=== PATIENT | female | born 1930 | race Caucasian/White ===

== ENCOUNTER 2016-05-19 09:54 | Inpatient (IN) | payer MEDICARE, OTHER ==
[~2016-05-19] VITALS: Ht 170.2 cm; Wt 55.3 kg
[2016-05-19 10:40] LABS: BASO % 1 % (0-3); EOS # 0.1 x10^3/uL (0.0-0.7); EOS % 1 % (0-3); HEMATOCRIT 28.1 % (36.0-47.0); HEMOGLOBIN 9.5 g/dL (12.0-15.5); LYMPH # 1.4 x10^3/uL (1.0-4.8); LYMPH % 21 % (24-48); MEAN CORPUSCULAR HEMOGLOBIN 32 pg (25-35); MEAN CORPUSCULAR HGB CONC 34 g/dL (31-37); MEAN CORPUSCULAR VOLUME 94 fL (79-100); MONO # 0.5 x10^3/uL (0.0-1.1); MONO % 7 % (0-9); NEUT # 4.5 x10^3uL (1.8-7.7); NEUT % 70 % (31-73); PLATELET COUNT 326 x10^3/uL (140-400); RED BLOOD COUNT 2.98 x10^6/uL (3.50-5.40); RED CELL DISTRIBUTION WIDTH 13.3 % (11.5-14.5); WHITE BLOOD COUNT 6.4 x10^3/uL (4.0-11.0)
[2016-05-19] MEDS ORDERED: IV NORMAL SALINE 500ML 500 ML IV ONE (10:45)
[2016-05-19 10:47] LABS: ALBUMIN 2.8 g/dL (3.4-5.0); ALBUMIN/GLOBULIN RATIO 0.8 (1.0-1.7); CALCIUM 9.2 mg/dL (8.5-10.1); CREATININE 1.2 mg/dL (0.6-1.0); GFR 42.9; POTASSIUM 3.5 mmol/L (3.5-5.1); TOTAL BILIRUBIN 0.2 mg/dL (0.2-1.0); TOTAL PROTEIN 6.2 g/dL (6.4-8.2)
--- NOTE | 2016-05-19 10:52 | RAD ---
Portable chest, 05/19/2016: History: Hypotension No previous chest radiographs are available at this time for comparison purposes. The patient positioning is kyphotic and rotated. 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 The heart appears to be at the upper limits of normal in size. There are calcified right paratracheal lymph nodes. There is moderate calcific plaquing and tortuosity of the thoracic aorta. The pulmonary vascularity is normal. No pulmonary infiltrates are seen. There is no evidence of pleural fluid. IMPRESSION: 1. Aortic atherosclerosis. 2. No acute cardiopulmonary abnormality is detected.
[2016-05-19 11:00] LABS: BACTERIA,URINE 0 /HPF (0-FEW); BILIRUBIN,URINE NEG (NEG); CLARITY,URINE CLEAR; COLOR,URINE YELLOW; GLUCOSE,URINE NEG (NEG); NITRITE,URINE NEG (NEG); RBC,URINE 0 /HPF (0-2); SQUAMOUS EPITHELIAL CELL,UR OCC /LPF; UROBILINOGEN,URINE 0.2 mg/dL (0.2 mg/dL); WBC,URINE 0 /HPF (0-4)
--- NOTE | 2016-05-19 11:34 | PHYS DOC ---
General Chief Complaint: MEDICAL CLEARANCE Stated Complaint: PSYCH EVAL Time Seen by MD: 10:01 Source: family Problems: History of Present Illness Initial Comments 85-year-old female patient with history of dementia who used to live at assisting living home had pneumonia and flu with hospitalization and discharged to rehabilitation one weeks. Patient had suicidal ideation with talking about having a gun and shooting herself in her abdomen and sent to ER for medical clearance for psych admission. Patient's daughter states she has depression and suicidal ideation for more than one year. Patient's daughter states she has history of hypertension but sometimes her blood pressure dropped to 90s. Patient 's daughter states the cough improved but still she has some cough and generalized weakness. Allergies: Coded Allergies: acetaminophen (Verified Allergy, Unknown, 05/19/16) diclofenac (Verified Allergy, Unknown, 05/19/16) oxycodone (Verified Allergy, Unknown, 05/19/16) Past Medical History Medical History: dementia, diabetes, hypertension Review of Systems Constitutional: see HPI other (review of system obtained from patient's daughter) EENTM: see HPI Respiratory: see HPI Cardiovascular: see HPI Gastrointestinal: see HPI Genitourinary: see HPI Musculoskeletal: see HPI Skin: see HPI Psychiatric/Neurological: see HPI Hematologic/Lymphatic: see HPI Immunological/Allergic: see HPI All Other Systems: Reviewed and Negative Physical Exam General Appearance: mild distress Eyes: bilateral eye EOMI, bilateral eye PERRL, bilateral eye normal inspection Ear, Nose, Throat: hearing grossly normal, normal ENT inspection Neck: non-tender, full range of motion Respiratory: chest non-tender, lungs clear, normal breath sounds Cardiovascular: normal peripheral pulses, regular rate, rhythm, no edema Gastrointestinal: normal bowel sounds, non tender, soft Back: normal inspection Extremities: normal range of motion, non-tender, normal inspection Neurologic/Psychiatric: no motor/sensory deficits, alert, other (depression) Skin: normal color, warm/dry Orders, Labs, Meds EKG at 1011 shows irregular rhythm with no P wave, left axis deviation, poor R wave progress in the anterolateral leads Evaluation of patient in the short 84-year-old female patient presented to ER had started for medical clearance for psychiatric admission regarding suicidal ideation. Patient had blood pressure of 96 at ER with elevation of lactic acid. Chest x-ray and UA was unremarkable. Plan to admit the patient for treatment of hypotension and elevation of lactic acid. Blood culture obtained and IV fluids and antibiotics started. Dr Bro accepted admission at 1124. Departure Departure: Impression: Primary Impression: Hypotension Additional Impressions: Elevated lactic acid level Hyperglycemia Suicidal ideation Anemia Dementia Renal insufficiency Generalized weakness Disposition: 09 ADMITTED INPATIENT (At 1125) Admitting Physician: Teodora Bro FARAHNAZ MD May 19, 2016 11:34
[2016-05-19] MEDS ORDERED: PIPERACILLIN/TAZOBACTAM 3.375 GM VIAL IV ONE (11:38)
[2016-05-19] MEDS ORDERED: IV NORMAL SALINE 50ML 50 ML ONE (11:38)
[2016-05-19] MEDS ORDERED: PIPERACILLIN/TAZOBACTAM 3.375 GM in IV NORMAL SALINE 50ML 50 ML IV ONE (11:50)
--- NOTE | 2016-05-19 13:27 | ACF ---
Admission Criteria Forms GENERAL ADMISSION CRITERIA (Place 'X' for any and all applicable criteria): Admission is indicated for ANY ONE of the following: [ ]I. Hemodynamic instability as indicated by ANY ONE of the following(1)(2) (3)(4)(5): [ ]a) Vital sign abnormality not readily corrected by appropriate treatment within 12 to 24 hours indicated by ANY ONE of the following: [ ]i) Hypotension [ ]ii) Symptomatic Tachycardia unresponsive to treatment (eg , analgesia, fluids, sedation as indicated) [ ]iii) Orthostatic vital sign changes unresponsive to treatment (eg, fluids) [ ]b) Vital sign abnormality that is severe indicated by ANY ONE of the following: [ ]i) Inadequate perfusion indicated by ANY ONE of the following: [ ]1) Lactic acidosis (greater than 2 mmol/L) [ ]2) New abnormal capillary refill (greater than 3 seconds) [ ]3) Other metabolic acidosis (arterial pH less than 7.35) not otherwise explained [ ]4) Reduced urine output [ ]5) Altered mental status [ ]6) Myocardial Ischemia [ ]v) Mean arterial pressure[A] less than 60 mm Hg [ ]vi) Mean arterial pressure[A] less than 70 mm Hg after 30 minutes of appropriate treatment (eg, fluid resuscitation) [ ]vii) IV inotropic or vasopressor medication required to maintain adequate blood pressure or perfusion [ ]viii) Sustained heart rate greater than 120 beats per minute in adult or child 6 years or older[B]] [ ]II. Hypertension requiring inpatient treatment as indicated by ANY ONE of the following(6)(7)(8): [ ]a) SBP greater than 220 mm Hg or DBP greater than 120 mm Hg despite treatment [ ]b) SBP greater than 140 mm Hg or DBP greater than 100 mm Hg with evidence of acute end organ damage as indicated by ANY ONE of the following: [ ]i) Encephalopathy [ ]ii) Acute renal failure as indicated by new onset of ANY ONE of the following(9)(10)(11)(12)(13): [ ]1) A 3-fold rise in serum creatinine from baseline [ ]2) Serum creatinine greater than 4 mg/dL ( 354 micromoles/L) with acute rise greater than 0.5 mg/dL (44.2 micromoles/L) [ ]3) Reduction of more than 75% in estimated glomerular filtration rate from baseline [ ]4) Estimated glomerular filtration rate less than 35 mL/min/1.73m2 (0.59 mL/sec/1.73m2) in child up to 18 years of age [ ]5) Cessation of urine output indicated by ALL of the following: [ ]A. Adequate volume status [ ]B. Inadequate urine output as indicated by ANY ONE of the following: [ ]a. Urine output less than 0.3 mL/kg/hr for 24 hours [ ]b. Anuria (urine output less than 0.1 mL/kg/hr) for 12 hours [ ]iii) Aortic dissection [ ]iv) Myocardial ischemia [ ]v) Left ventricular heart failure [ ]vi) Retinal hemorrhage [ ]vii) Other significant finding [ ]c) Hypertension in child requiring inpatient treatment as indicated by ALL of the following(14)(15)(16): [ ]i) Outpatient treatment not effective, not available, or not appropriate [ ]ii) SBP or DBP greater than 95th percentile for age [ ]iii) Evidence of acute end organ damage as indicated by ANY ONE of the following: [ ]1) Altered mental status [ ]2) Acute renal failure as indicated by new onset of ANY ONE of the following(9)(10)(11)(12)(13): [ ]A. A 3-fold rise in serum creatinine from baseline [ ]B. Serum creatinine greater than 4 mg/dL (354 micromoles/L) with acute rise greater than 0.5 mg/dL (44.2 micromoles/L) [ ]C. Reduction of more than 75% in estimated glomerular filtration rate from baseline [ ]D. Estimated glomerular filtration rate less than 35 mL/min/1.73m2 (0.59 mL/sec/1.73m2)in child up to 18 years of age [ ]E. Cessation of urine output indicated by ALL of the following: [ ]a. Adequate volume status [ ]b. Inadequate urine output as indicated by ANY ONE of the following: [ ]1) Urine output less than 0.3 mL/kg/hr for 24 hours [ ]2) Anuria (urine output less than 0.1 mL/kg/hr) for 12 hours [ ]3) Severe headache [ ]4) Visual disturbance [ ]5) Retinal hemorrhage [ ]6) Other significant finding [ ]III. Acute cardiac or peripheral ischemia as indicated by ANY ONE of the following: [ ]a) Acute coronary syndrome(17)(18) [ ]b) Acute peripheral ischemia (eg, pulseless, cool, mottled, or cyanotic extremity)(19) [ ]IV. Cardiac arrhythmias or findings of immediate concern indicated by ANY ONE of the following(20)(21): [ ]a) Heart rhythms that are inherently dangerous or unstable indicated by ANY ONE of the following(22)(23)(24): [ ]i) Resuscitated ventricular fibrillation or cardiac arrest [ ]ii) Ventricular escape rhythm [ ]iii) Sustained ventricular tachycardia (30 seconds or more of ventricular rhythm at greater than 100 beats per minute) [ ]iv) Nonsustained ventricular tachycardia and ANY ONE of the following: [ ]1) Suspected cardiac ischemia as cause or consequence of ventricular tachycardia [ ]2) In setting of acute myocarditis [ ]b) Unstable cardiac conduction defects indicated by ANY ONE of the following(24)(25)(26): [ ]i) Type II second-degree atrioventricular block [ ]ii) Third-degree atrioventricular block [ ]iii) New-onset left bundle branch block with suspected myocardial ischemia [ ]c) Any heart rhythm and ANY ONE of the following(22)(23)(27)(28)( 29): [ ] i) Continuous long-term ECG monitoring needed (eg, initiation of drug requiring monitoring for more than 24 hours) [ ] ii) Patient has automatic implanted cardioverter defibrillator that is repeatedly firing, malfunctioning, or in need of immediate adjustment of settings beyond the scope of ambulatory or observation care. [ ]d) Heart rhythms of concern due to ANY ONE of the following: [ ]i) Hypotension [ ]ii) Respiratory distress [ ]iii) Association with other significant symptoms (eg, bradycardia with syncope or ongoing dizziness, supraventricular tachycardia with chest pain) (27)(28) (30) [ ] V. Severe heart failure as indicated by ANY ONE of the following ( 31)(32): [ ]a) Respiratory distress [ ]b) Hypotension [ ]c) Anasarca (refractory to outpatient therapy) [ ]d) Cardiac arrhythmias of immediate concern [ ]e) Myocardial ischemia [ ]. Respiratory abnormalities, including ANY ONE of the following(33)(34) (35)(36): [ ]a) Respiratory rate greater than 30 breaths per minute unresponsive to treatment [A] [ ]b) New saturation of arterial oxygen less than 90% [ ]c) New partial pressure of carbon dioxide greater than 44 mm Hg ( 5.9 kPa) [ ]d) Supplemental oxygen or respiratory treatments needed that are new or not performable at other levels of care [ ]e) New-onset cyanosis [ ]f) Inability to protect airway [ ]g) Chronic lung disease with severe deterioration (not responsive to emergency and observation care treatment as appropriate) as indicated by ANY ONE of the following(34)(36 ): [ ]i) SaO2 5% below baseline in patient with chronic hypoxemia [ ]ii) New requirement for supplemental oxygen to keep SaO2 at baseline or acceptable level [ ]iii) Required supplemental oxygen performable only in acute inpatient setting [ ]iv) Severe airflow or ventilation abnormalities [ ]v) Previously mobile patient unable to walk between rooms [ ]vi Inability to eat or sleep due to dyspnea [ ]vii) Rapid rate of exacerbation onset [ ]viii) Altered mental status ]VII. Severe airflow or ventilation abnormalities (not responsive to emergency and observation care treatment as appropriate) as indicated by ANY ONE of the following(33)(34)(35)(37): [ ]a) PCO2 greater than 42 mm Hg (5.6 kPa) and pH less than 7.35 (new ) [ ]b) Documented PCO2 increased more than 5 mm Hg (0.7 kPa) from disease baseline [ ]c) Airflow measurements [B] less than 60% of previous best or predicted (eg, peak expiratory flow rate less than 300 L/minute) despite intensive emergent treatment [C] [ ]d) Required respiratory treatments that are performable only in acute inpatient setting [ ]VIII. Impending or actual respiratory arrest ( Also use Respiratory Failure GRG for severe respiratory disease and long-term mechanical ventilation patients) [ ]IX. Neurologic abnormalities, including ANY ONE of the following: [ ]a) New findings that suggest ANY ONE of the following: [ ]i) [employer]ORTS [employer] infection(38) [ ]ii) Cerebral bleeding, ischemia, or vasospasm(39)(40) [ ]iii) Increased intracranial pressure, hydrocephalus, or cerebral edema(41)(42)(43) [ ]iv) Spinal cord injury(44) [ ]b) Uncontrolled seizures(45) [ ]c) New-onset coma (eg, Jesenia coma scale score less than 9) or unexplained abnormal mental status (eg, Jesenia coma scale score less than 14) [D](41)(46)(47) [ ]X. New-onset severe neurologic findings requiring inpatient care; examples include(42)(48)(49): [ ]a) Papilledema [ ]b) Cerebral edema [ ]c) Mass effect on CT scan [ ]XI. Suspected acute intra-abdominal process with peritoneal signs, abdominal mass, or similar findings (50)(51)(52) [ ]XII. Severe physiologic disorder remaining after emergency or observation level care (as appropriate) as indicated by ANY ONE of the following (53): [ ]a) Significant dehydration [ ]b) Diabetic ketoacidosis [ ]c) Hyperglycemic hyperosmolar state (eg, osmolality greater than 320 mOsm/kg (mmol/kg) [ ]d) Hypoglycemia [ ]e) Other (new) acid-base disorder with pH less than 7.35 or greater than 7.5(54) [ ]f) Thyroid storm (55) [ ]g) Myxedema coma (55) [ ]XIII. Abdominal abnormalities with ANY ONE of the following(56)(57): [ ]a) Absent bowel sounds with complete ileus [ ]b) Signs of intestinal obstruction or peritonitis [E] [ ]c) Nausea and vomiting that cannot be controlled with outpatient or observation care [ ]XIV. Acute renal failure as indicated by new onset of ANY ONE of the following(9)(10)(11)(12)(13): [ ]a) A 3-fold rise in serum creatinine from baseline [ ]b) Serum creatinine greater than 4 mg/dL (354 micromoles/L) with acute rise greater than 0.5 mg/dL (44.2 micromoles/L) [ ]c) Reduction of more than 75% in estimated glomerular filtration rate from baseline [ ]d) Estimated glomerular filtration rate less than 35 mL/min/ 1.73m2 (0.59 mL/sec/1.73m2) in child up to 18 years of age [ ]e) Cessation of urine output indicated by ALL of the following: [ ]i) Adequate volume status [ ]ii) Inadequate urine output as indicated by ANY ONE of the following: [ ]1) Urine output less than 0.3 mL/kg/hr for 24 hours [ ]2) Anuria (urine output less than 0.1 mL/kg/hr) for 12 hours [ ]XV. Significant uremic complications as indicated by ANY ONE of the following(58)(59)(60): [ ]a) Outpatient therapy is ineffective or not feasible for ANY ONE of the following: [ ]i) Severe heart failure [ ]ii) Severehypertension [ ]iii) Pleural effusion [ ]iv) Pericarditis or pericardial effusion [ ]b) Cardiac arrhythmias of immediate concern [ ]c) Intractable nausea or vomiting [ ]d) Recurrent seizures [ ]e) Encephalopathy [ ]f) Bleeding abnormalities (eg, platelet dysfunction) with active (eg, gastrointestinal) bleeding [ ]g) Dialysis indicated before long-term access or ambulatory arrangements can be made [ ]h) Significant metabolic or electrolyte abnormalities (eg, severe acidosis or hyperkalemia) [ ]XVI. High fever or other high-risk infection situation as indicated by ANY ONE of the following(61)(62)(63)(64): [ ]a) Outpatient and observation care antimicrobial treatment unavailable, not effective, or not appropriate [ ]b) Documented bacteremia [ ]c) Temperature greater than 40.5 degrees C (104.9 degrees F) ( oral) [ ]d) Temperature greater than 39.5 degrees C (103.1 degrees F) ( oral) or less than 36 degrees C (96.8 degrees F) (rectal) that does not respond to e treatment and observation care [ ] XVII. Temperature less than 95 degrees F (35 degrees C)(rectal)(65) [ ] XVIII. Severe nutritional abnormalities as indicated by ALL of the following (66)(67): [ ]a) Inability to tolerate or establish sufficient oral or other enteral nutrition in outpatient setting [ ]b) Parenteral nutrition regimen need that must be implemented on inpatient basis [ ] XIX. Severe electrolyte abnormalities indicated by ALL of the following(68) (69)(70): [ ]a) Electrolytes and associated findings are not as expected for patient baseline or acceptable treatment effects. [ ]b) Severe abnormalities indicated by ANY ONE of the following: [ ]i) Sodium less than 130 mEq/L (mmol/L) (new) [ ]ii)Sodium less than 135 mEq/L (mmol/L) with ANY ONE of the following: [ ]1) Uncorrectable (to near normal or chronic baseline) after trial of outpatient and emergency treatment [ ]2) Altered mental status [ ]3) Seizures [ ]4) Severe medical etiology requiring inpatient management (eg, heart failure, hypovolemia) [ ]iii) Sodium greater than 155 mEq/L (mmol/L) [ ]iv) Sodium greater than 150 mEq/L (mmol/L) with ANY ONE of the following: [ ]1) Uncorrectable (to near normal or chronic baseline) with outpatient and emergency treatment [ ]2) Altered mental status [ ]3) Seizures [ ]4) Severe medical etiology (eg, hypovolemia, diabetes insipidus) [ ]v) Potassium less than 2.5 mEq/L (mmol/L) despite outpatient and emergency treatment [ ]vi) Potassium less than 3 mEq/L (mmol/L) with ANY ONE of the following: [ ]1) Weakness [ ]2) Cardiac abnormality (eg, arrhythmia, conduction disturbance) [ ]3) Cardiac ischemia [ ]4) Ileus [ ]5) Ongoing medical cause requiring inpatient management (eg, acute renal wasting or SIADH) [ ]6) Other severe symptoms [ ]vii) Potassium greater than 6.5 mEq/L (mmol/L) [ ]viii) Potassium greater than 5 mEq/L (mmol/L) with ANY ONE of the following: [ ]1) Uncorrectable (to near normal or chronic baseline) with outpatient and emergency treatment [ ]2) Severe ECG findings [F] [ ]3) Acute worsening of renal failure (creatinine greater than 2.5 mg/dL (221 micromoles/L) or significant elevation for age and size) [ ]4) Severe weakness [ ]5) Severe medical etiology (eg, hemolysis, infection, drug overdose) [ ]ix) Calcium less than 7 mg/dL (1.75 mmol/L) despite outpatient and emergency treatment (72) [ ]x) Calcium less than 8 mg/dL (2 mmol/L) with significant symptoms or findings; examples include(72): [ ]1) Altered mental status [ ]2) Muscle spasms [ ]3) Seizures [ ]4) Breathing difficulty [ ]5) Cardiac abnormality (eg, arrhythmia or conduction disturbance) [ ]xi) Calcium greater than 14 mg/dL (3.5 mmol/L)(72) [ ]xii) Calcium greater than 12 mg/dL (3 mmol/L) with ANY ONE of the following(72): [ ]1) Uncorrectable (to near normal or chronic baseline) with outpatient and emergency treatment [ ]2) Significant dehydration or hypovolemia as indicated by ALL of the following(70)(73)(74): [ ]A. Not resolved with initial treatments [ ]B. Clinically significant dehydration as indicated by ANY ONE of the following: [ ]a. Vomiting refractory to outpatient treatment (ie, precluding oral rehydration) [ ]b. Inability to drink [ ]c. Hypernatremia or other electrolyte abnormality unable to be corrected with outpatient and emergency treatment [ ]d. Failure to remain hydrated with outpatient therapy [ ]e. Reduced urine output [ ]f. Hypotension [ ]g. Serious cause for dehydration requiring acute hospitalization (eg, bowel obstruction, increased intracranial pressure, infectious cause) [ ]h. Child with ANY ONE of the following(75): [ ]1) Severe abdominal tenderness [ ]2) Adequate care not available at home [ ]3) Severe dehydration ( greater than 9% loss of body weight) [ ]4) Significant symptoms or findings; examples include: [ ]A. Altered mental status [ ]B. Cardiac abnormality (eg, arrhythmia, conduction disturbance) [ ]C. Malignant etiology requiring inpatient treatment [ ]xiii) Phosphorus less than 1 mg/dL (0.32 mmol/L) [ ]xiv) Phosphorus less than 1.5 mg/dL (0.48 mmol/L) with ANY ONE of the following: [ ]1) Patient unresponsive to outpatient and emergency treatment [ ]2) Significant symptoms or findings; examples include: [ ]A. Weakness [ ]B. Altered mental status [ ]C. Breathing difficulty [ ]D. Seizures [ ]E. Rhabdomyolysis [ ]xv) Phosphorus greater than 10 mg/dL (3.2 mmol/L) [ ]xvi) Phosphorus greater than 4.5 mg/dL (1.45 mmol/L) (new) with ANY ONE of the following: [ ]1) Severe medical etiology (eg, crush injury, acute renal failure) [ ]2) Associated hypocalcemia with significant findings; examples include: [ ]A. Neurologic symptoms [ ]B. Altered mental status [ ]C. Muscle spasms [ ]D. Seizures [ ]E. Breathing difficulty [ ]F. Cardiac abnormality (eg, arrhythmia, conduction disturbance) [ ]xvii) Magnesium less than 1 mg/dL (0.41 mmol/L) [ ]xviii) Magnesium less than 1.5 mg/dL (0.62 mmol/L) with ANY ONE of the following: [ ]1) Patient unresponsive to outpatient and emergency treatment [ ]2) Associated hypocalcemia with significant findings; examples include: [ ]A. Altered mental status [ ]B. Muscle spasms [ ]C. Seizures [ ]D. Breathing difficulty [ ]E. Cardiac abnormality (eg, arrhythmia , conduction disturbance) [ ]3) Associated hypokalemia (potassium less than 3 mEq/L (mmol/L)) with risk of arrhythmia [ ]xix) Magnesium greater than 4 mEq/L (2 mmol/L) [ ]xx) Magnesium greater than 2.5 mEq/L (1.25 mmol/L) with significant symptoms or findings; examples include: [ ]1) Weakness [ ]2) Altered mental status [ ]3) Cardiac abnormality (eg, arrhythmia, conduction disturbance) [ ]4) Breathing difficulty [ ]5) Severe medical etiology (eg, renal failure, hypovolemia) [ ]xxi) Uric acid greater than 20 mg/dL (1190 micromoles/L)(76) [ ]xxii) Uric acid greater than 8 mg/dL (476 micromoles/L) with significant symptoms or findings of tumor lysis syndrome; examples include(76): [ ]1) Creatinine greater than 1.5 times upper limit of normal [ ]2) Cardiac abnormality (eg, arrhythmia, conduction disturbance) [ ]3) Seizure [ ]XX. Acute blood loss causing significant abnormality as indicated by ANY ONE of the following(77)(78): [ ]a) Hemoglobin less than 10 g/dL (100 g/L) (not baseline) [ ]b) Hematocrit less than 30% (0.30) (not baseline) [ ]c) Repeat hematocrit decreased more than 2% (0.02) [ ]d) Uncontrolled bleeding [ ]XXI. Severe anemia indicated by ANY ONE of the following(78)(79): [ ]a) Altered mental status [ ]b) Chest pain [ ]c) Exertional dyspnea [ ]d) Syncope [ ]e) Other findings suggesting inadequate perfusion [ ]f) Treatment with transfusion or volume replacement is ineffective at resolving ANY ONE of the following [G]: [ ]i) Tachycardia for age [ ]ii) Orthostatic vital sign changes as indicated by ANY ONE of the following(80): [ ]1) Fall in SBP of 20 mm Hg or more 1 to 3 minutes after patient sits or stands from recumbent position [ ]2) Fall in DBP of 10 mm Hg or more 1 to 3 minutes after patient sits or stands from recumbent position [ ]XXII. High-risk low platelet count as indicated by ANY ONE of the following( 81)(82): [ ]a) Severe or life-threatening bleeding (eg, intracranial, major gastrointestinal, or extensive mucosal bleeding), with any reduced platelet count [ ]b) Platelet count less than 20,000/mm3 (20 x109/L) with any active bleeding [ ]c) Platelet count less than 10,000/mm3 (10 x109/L) with minor purpura or petechiae [ ]d) Platelet count less than 5000/mm3 (5 x109/L) [ ]e) Low platelet count with hemolytic anemia [ ]XXIII. Disseminated intravascular coagulation(77)(83) [ ]XXIV. Severe adverse drug or systemic toxin reaction requiring inpatient treatment; examples include(84)(85): [ ]a) Serotonin syndrome(86) [ ]b) Neuroleptic malignant syndrome(86) [ ]c) Cholinergic syndrome with severe symptoms (eg, bronchorrhea, weakness, mental status changes, seizures) [ ]d) Sympathetic syndrome with severe symptoms (eg, seizures, mental status changes, cardiac dysrhythmias) [ ]e) Anticholinergic syndrome [ ]XXV. Severe pain requiring acute inpatient management as indicated by ALL of the following (87)(88)(89): [ ]a) Continuous or frequent (eg, every 2 to 4 hours) parenteral analgesics required [H] [ ]b) Rapid improvement expected from treatment or acute intervention (eg, surgery, anesthesia procedure) [ ]XXVI.Severe behavioral health issues judged unmanageable at a lower level of care (eg, residential) in a patient who is ANY ONE of the following(91) [ ]a) Acutely suicidal [ ]b) A danger to self (eg, self-mutilating or suicidal behavior) [ ]c) A danger to others (eg, assaultive or homicidal behavior) [ ]d) Incapacitated because of grave disability (eg, inability to provide for self at lower level of care) (92) [X ]XXVII. Inpatient monitoring needed; examples include(1)(3)(87)(93)(94)(95)( 96): [X ]a) Vital signs, neurologic signs, or vascular checks more frequently than every 4 hours [ ]b) Cardiac or respiratory monitoring beyond the scope (eg, over 24 hours) of observation care [ ]c) Pulmonary artery catheter monitoring [ ]d) Suspected compartment syndrome(97) (98) [ ]e) Cerebral bleeding, hydrocephalus, or vasospasm monitoring [ ]f) Increased intracranial pressure or cerebral edema monitoring [ ]g) monitoring [ ]XXVIII. Treatment requiring inpatient care; examples include: [ ]a) IV fluid to replace significant ongoing losses (greater than 3 L/m2 per day)(53) [ ]b) High concentration oxygen (greater than 40%)(33)(99)(100) [ ]c) Frequent respiratory therapy (more frequently than every 4 hours) to maintain airflow rates greater than 60% of baseline(33)(99)(100) [ ]d) Epidural analgesia(87) [ ]e) IV anticoagulation, vasoactive, or antiarrhythmic medication(19 )(23) [ ]f) Acute thrombolytics (generally require 24 hours of observation )(101)(102) [ ]XXIX. Emergency procedures needed; examples include: [ ]a) Emergency inpatient surgery [ ]b) Temporary pacemaker placement(103) [ ]c) Chest tube placement with active evacuation (eg, suction, drainage)(104) [ ]d) Emergent cardioversion(105) [ ]e) Emergent cardiac or vascular procedures (eg, cardiac catheterization, angioplasty) (17)(18) [ ]f) Emergent dialysis access placement and institution(10)(106) [ ]g) Emergent pericardiocentesis(107) [ ]h) Emergent plasmapheresis or leukapheresis(83) [ ]i) Emergent tracheostomy The original [employer] content created by [employer] has been revised. The portions of the content which have been revised are identified through the use of italic text or in bold, and [facility] has neither reviewed nor approved the modified material. All other unmodified content is copyright [employer]. Please see references footnoted in the original [employer] edition 2016 Admission Criteria Met?: Yes CHRIS BERRY May 19, 2016 13:27
[2016-05-19 14:20] VITALS: BP 114/65
[2016-05-19 14:48] VITALS: BP 114/65
--- NOTE | 2016-05-19 15:17 | EKG ---
[address] [address] Test Date: 2016-05-19 Test Time: 10:11:26 Pat Name: MELINDA PERRY Department: Room: 125 A Gender: F Area Supervisor: : [id number] Requested By: CHRISTIANO RUVALCABA Order Number: [id number] Reading MD: Measurements Intervals [place] Rate: 62 P: SD: QRS: -6 QRSD: 104 T: 8 QT: 420 QTc: 429 Interpretive Statements IRREGULAR RHYTHM, NO P-WAVE FOUND LEFTWARD AXIS QRS(T) CONTOUR ABNORMALITY CONSIDER ANTEROLATERAL MYOCARDIAL DAMAGE POSSIBLY ABNORMAL ECG RI6.01 Unconfirmed report No previous ECG available for comparison
[2016-05-19] MEDS ORDERED: ACET325T9 PO (15:52)
[2016-05-19] MEDS ORDERED: ALPR0.254 PO (15:52)
[2016-05-19] MEDS ORDERED: ASPI81TA2 PO (15:53)
[2016-05-19] MEDS ORDERED: AMLO10TA2 PO (15:53)
[2016-05-19] MEDS ORDERED: ASCO500T3 PO (15:53)
[2016-05-19] MEDS ORDERED: ATOR20TA58 PO (15:54)
[2016-05-19] MEDS ORDERED: BENZ200C39 PO (15:54)
[2016-05-19] MEDS ORDERED: CARV6.252 PO (15:55)
[2016-05-19] MEDS ORDERED: CRAN425C PO (15:56)
[2016-05-19] MEDS ORDERED: CHOL2000 PO (15:56)
[2016-05-19] MEDS ORDERED: DONE10TA7 PO (15:56)
[2016-05-19] MEDS ORDERED: INSU100I27 SQ (15:57)
[2016-05-19] MEDS ORDERED: IBUP200T5 PO (15:57)
[2016-05-19] MEDS ORDERED: LISI10TA2 PO (15:58)
[2016-05-19] MEDS ORDERED: LEVE500T6 PO (15:58)
[2016-05-19] MEDS ORDERED: LEVO125T5 PO (15:58)
[2016-05-19] MEDS ORDERED: LORA10TA3 PO (15:59)
[2016-05-19] MEDS ORDERED: MEMA10TA PO (15:59)
[2016-05-19] MEDS ORDERED: LOPE2TAB27 PO (15:59)
[2016-05-19] MEDS ORDERED: METF500T4 PO (16:00)
[2016-05-19] MEDS ORDERED: MIRT30TA3 PO (16:00)
[2016-05-19] MEDS ORDERED: CALC200T3 PO (16:01)
[2016-05-19] MEDS ORDERED: QUET25TA5 PO (16:01)
[2016-05-19] MEDS: CARVEDILOL 6.25 MG TABLET PO SCH (18:00)
[2016-05-19] MEDS ORDERED: IBUPROFEN 200 MG TABLET PO PRN ×2 (18:00→18:15)
[2016-05-19] MEDS ORDERED: ACETAMINOPHEN 325 MG TABLET PO PRN (18:00)
[2016-05-19] MEDS ORDERED: ALPRAZOLAM 0.25 MG TABLET PO PRN (18:00)
[2016-05-19] MEDS ORDERED: LOPERAMIDE 2 MG CAPSULE PO PRN (18:15)
--- NOTE | 2016-05-19 18:42 | HP ---
ADMIT DATE: 05/19/2016 HISTORY OF PRESENT ILLNESS: The patient is an 85-year-old female patient who apparently ill with history of dementia, used to live at [facility] and has had pneumonia and flu was hospitalized at [facility] as she was extremely debilitated. She was discharged to rehabilitation center for 1 week. The patient has suicidal ideation with talking about having a gun and shooting herself in her abdomen and was sent to the Emergency Room of [facility] for medical clearance for psych admission. The patient's daughter states that she has depression and suicidal ideation for more than 1 year now. The patient's daughter stated that she has history of hypertension and sometimes her blood pressure drops to 90s. Her daughter stated that she generally has improved from her pneumonia and influenza, but she continued to have generalized weakness. In any case, she was evaluated in the Emergency Room, was found to have lactic acidosis and a decision was made to admit her to [facility] to rehydrate her and to repeat her lab work before she can go upstairs to the [facility]. The patient herself is extremely demented and does not give any useful information; however, she was very pleasant and cooperative. PAST MEDICAL HISTORY: Significant for dementia, diabetes, and hypertension. She has also hyperlipidemia, vitamin D deficiency, seizure disorder, and hypothyroidism. PAST SURGICAL HISTORY: Significant for left total knee arthroplasty, back surgery. She apparently has also stents in her heart and permanent pacemaker placed. FAMILY HISTORY: Unremarkable. SOCIAL HISTORY: She is a resident at [facility]. She apparently does not smoke, drink alcohol, or use any recreational drugs. REVIEW OF SYSTEMS: As per history of present illness. PHYSICAL EXAMINATION: GENERAL: On examining her, she looked well and was clearly in no apparent respiratory distress, slightly pale, but no jaundice, cyanosis, or thyromegaly. No jugular venous distension. No limb edema. VITAL SIGNS: Her heart rate was 64, blood pressure 114/65, temperature was 98.4, respiratory rate 20, and oxygen saturation was 99% on room air. HEAD, EYES, EARS, NOSE, AND THROAT: Showed normocephalic, atraumatic. She has bilateral conjunctivitis more so on the right than left. NECK: Supple. HEART: Showed normal first and second heart sounds with no gallop, rub or murmur. CHEST: Clear to auscultation. No crepitation or rhonchi. ABDOMEN: Distended, soft, nontender. No guarding or rigidity. No organomegaly. Hernial orifices intact. Bowel sounds normal. NEUROLOGIC: She is demented without any obvious lateralizing sign. All her cranial nerves intact. EXTREMITIES: She moves extremities without difficulty. She ambulates with a walker. LABORATORY DATA: Her lab work on admission showed a white cell count of 6400, hemoglobin 9.5, hematocrit 28, MCV 94 and platelet count of 326,000 with normal manual differential. Her chemistry showed a serum sodium 142, potassium 3.5, chloride 105, bicarbonate 31, anion gap of 6, BUN 11, creatinine 1.2, estimated GFR was 43 mL per minute. Her glucose was 237, lactic acid was 2.2, calcium was 9.2. Total bilirubin, AST, ALT were normal. Alkaline phosphatase slightly elevated. Total protein was 6.2 and albumin was 2.8. Urinalysis was unremarkable. Her chest x-ray also showed no acute cardiopulmonary abnormality detected. IMPRESSION: In summary, this is an 85-year-old female patient who was admitted with hypertension, elevated lactic acid level, hyperglycemia, suicidal ideation, anemia, renal insufficiency, and generalized weakness. PLAN: To continue with all her medication. Continue with IV fluid and repeat her labs tomorrow as she remained hemodynamically stable, we will discharge her upstairs if she qualifies to go to inpatient psychiatric rehabilitation. CHRISTIANO RUVALCABA MD DR: NARESH/leonela JOB#: [id number] / [id number]
[2016-05-19 19:34] VITALS: BP 100/53
[2016-05-19 19:45] VITALS: BP 100/53
[2016-05-19] MEDS ORDERED: BENZONATATE 100 MG CAPSULE. PO PRN (21:00)
[2016-05-19] MEDS ORDERED: QUEtiapine 25 MG TABLET. PO SCH (21:00)
[2016-05-19] MEDS ORDERED: NON FORMULARY ITEM (Cranberry Extract (Cranberry) 425 MG) PO SCH (21:00)
[2016-05-19] MEDS ORDERED: MIRTAZAPINE 30 MG TABLET PO SCH (21:00)
[2016-05-19] MEDS ORDERED: ATORVASTATIN CALCIUM 20 MG TABLET PO SCH (21:00)
[2016-05-19] MEDS ORDERED: INSULIN DETEMIR 300 UNITS/3 ML INSULN.PEN. SQ SCH (21:00)
--- NOTE | 2016-05-19 21:02 | PDOC ---
Exam Miguelito Demential Exam: Miguelito Note: Please also refer to the separate dictated note~for this date of service dictated separately.~Patient seen individually. Discussed the patient with Nursing staff reviewed the chart.~Reviewed interim history and current functioning. Reviewed vital signs,~Labs/ Radiology~and current medications noted below. Continue current treatment with the changes noted in the dictated addendum note Assessment: Vital Signs: Vital Signs Date Time Temp Pulse Resp B/P Pulse Ox O2 Delivery O2 Flow Rate FiO2 05/19/16 19:45 98.3 73 16 100/53 95 05/19/16 19:34 Room Air Labs: Laboratory Tests Test 05/19/16 10:25 05/19/16 10:35 05/19/16 14:28 05/19/16 16:07 White Blood Count 6.4x10^3/uL (4.0-11.0) Red Blood Count 2.98x10^6/uL (3.50-5.40) L Hemoglobin 9.5g/dL (12.0-15.5) L Hematocrit 28.1% (36.0-47.0) L Mean Corpuscular Volume 94fL (79-100) Mean Corpuscular Hemoglobin 32pg (25-35) Mean Corpuscular Hemoglobin Concent 34g/dL (31-37) Red Cell Distribution Width 13.3% (11.5-14.5) Platelet Count 326x10^3/uL (140-400) Neutrophils (%) (Auto) 70% (31-73) Lymphocytes (%) (Auto) 21% (24-48) L Monocytes (%) (Auto) 7% (0-9) Eosinophils (%) (Auto) 1% (0-3) Basophils (%) (Auto) 1% (0-3) Neutrophils # (Auto) 4.5x10^3uL (1.8-7.7) Lymphocytes # (Auto) 1.4x10^3/uL (1.0-4.8) Monocytes # (Auto) 0.5x10^3/uL (0.0-1.1) Eosinophils # (Auto) 0.1x10^3/uL (0.0-0.7) Basophils # (Auto) 0.0x10^3/uL (0.0-0.2) Sodium Level 142mmol/L (136-145) Potassium Level 3.5mmol/L (3.5-5.1) Chloride Level 105mmol/L (98-107) Carbon Dioxide Level 31mmol/L (21-32) Anion Gap 6 (6-14) Blood Urea Nitrogen 11mg/dL (7-20) Creatinine 1.2mg/dL (0.6-1.0) H Estimated GFR (Cockcroft-Gault) 42.9 BUN/Creatinine Ratio 9 (6-20) Glucose Level 237mg/dL (70-99) H Lactic Acid Level 2.2mmol/L (0.4-2.0) H 2.0mmol/L (0.4-2.0) Calcium Level 9.2mg/dL (8.5-10.1) Total Bilirubin 0.2mg/dL (0.2-1.0) Aspartate Amino Transferase (AST) 18U/L (15-37) Alanine Aminotransferase (ALT) 17U/L (14-59) Alkaline Phosphatase 127U/L (46-116) H Total Protein 6.2g/dL (6.4-8.2) L Albumin 2.8g/dL (3.4-5.0) L Albumin/Globulin Ratio 0.8 (1.0-1.7) L Urine Collection Type U cath Urine Color Yellow Urine Clarity Clear Urine pH 5.0 Urine Specific [place] 1.015 Urine Protein Neg (NEG-TRACE) Urine Glucose (UA) Negmg/dL (NEG) Urine Ketones (Stick) Negmg/dL (NEG) Urine Blood Neg (NEG) Urine Nitrite Neg (NEG) Urine Bilirubin Neg (NEG) Urine Urobilinogen Dipstick 0.2mg/dL (0.2 mg/dL) Urine Leukocyte Esterase Neg (NEG) Urine RBC 0/HPF (0-2) Urine WBC 0/HPF (0-4) Urine Squamous Epithelial Cells Occ/LPF Urine Bacteria 0/HPF (0-FEW) Urine Mucus Slight/LPF Glucose (Fingerstick) 133mg/dL (70-99) H Test 05/19/16 20:12 Glucose (Fingerstick) 133mg/dL (70-99) H Current Medications: Meds: Current Medications Sodium Chloride 500 ml @ 0 mls/hr 1X ONCE IV Last administered on 05/19/16t 10 :45; Start 05/19/16 at 10:45; Stop 05/19/16 at 10:46; Status DC Piperacillin Sod/ Tazobactam Sod/ Sodium Chloride (Zosyn/Iv Sodium Chloride 0.9 % 50ml) 50 ml @ 100 mls/hr 1X ONCE IV Last administered on 05/19/16t 11:44; Start 05/19/16 at 11:50; Stop 05/19/16 at 12:19; Status DC Piperacillin Sod/ Tazobactam Sod 3.375 gm 3.375 gm STK-MED ONCE IV ; Start 05/19 at 11:38; Stop 05/19/16 at 11:39; Status DC Sodium Chloride (Iv Sodium Chloride 0.9% 50ml) 50 ml @ As Directed STK-MED ONCE .ROUTE ; Start 05/19/16 at 11:38; Stop 05/19/16 at 11:39; Status DC Acetaminophen (Tylenol) 650 mg PRN Q4HRS PRN PO PAIN; Start 05/19/16 at 18:00 Alprazolam (Xanax) 0.25 mg PRN Q6HRS PRN PO ANXIETY / AGITATION; Start at 18:00 Amlodipine Besylate (Norvasc) 10 mg DAILY PO ; Start 05/20/16 at 09:00 Ascorbic Acid (Vitamin C) 500 mg BID PO ; Start 05/19/16 at 21:00 Aspirin (Children'S Aspirin) 81 mg DAILY PO ; Start 05/20/16 at 09:00 Atorvastatin Calcium (Lipitor) 20 mg QHS PO ; Start 05/19/16 at 21:00 Calcium Carbonate/ Glycine (Tums) 500 mg DAILY PO ; Start 05/20/16 at 09:00 Carvedilol (Coreg) 6.25 mg BIDWMEALS PO ; Start 05/19/16 at 18:00 Donepezil HCl (Aricept) 10 mg DAILY PO ; Start 05/20/16 at 09:00 Ibuprofen (Motrin) 200 mg PRN Q4HRS PRN PO PAIN; Start 05/19/16 at 18:00 Insulin Detemir (Levemir) 10 units QHS SQ ; Start 05/19/16 at 21:00 Levetiracetam (Keppra) 500 mg BID PO ; Start 05/19/16 at 21:00 Levothyroxine Sodium (Synthroid) 125 mcg DAILYAC PO ; Start 05/20/16 at 07:30 Lisinopril (Prinivil) 10 mg DAILY PO ; Start 05/20/16 at 09:00 Memantine (Namenda) 10 mg DAILY PO ; Start 05/20/16 at 09:00 Metformin HCl (Glucophage) 500 mg BIDWMEALS PO ; Start 05/20/16 at 08:00 Mirtazapine (Remeron) 30 mg QHS PO ; Start 05/19/16 at 21:00 Quetiapine Fumarate (SEROquel) 12.5 mg QHS PO ; Start 05/19/16 at 21:00 Benzonatate (Tessalon Perle) 200 mg PRN Q8HRS PRN PO COUGH; Start 05/19/16 at 21:00 Vitamin D (Vitamin D3) 2,000 unit DAILY PO ; Start 05/20/16 at 09:00 Non-Formulary Medication 425 mg BID PO ; Start 05/19/16 at 21:00; Status UNV Loperamide HCl (Imodium) 2 mg PRN QID PRN PO DIARRHEA; Start 05/19/16 at 18:15 Cetirizine HCl (Zyrtec) 10 mg DAILY PO ; Start 05/20/16 at 09:00 Ibuprofen (Motrin) 400 mg PRN Q4HRS PRN PO PAIN; Start 05/19/16 at 18:15 Active Scripts Active Reported Tums (Calcium Carbonate) 200 Mg Tab.chew 200 Mg PO DAILY Seroquel (Quetiapine Fumarate) 25 Mg Tablet 12.5 Mg PO QHS Mirtazapine 30 Mg Tablet 1 Tab PO QHS Metformin Hcl 500 Mg Tablet 500 Mg PO BIDWMEALS Namenda (Memantine Hcl) 10 Mg Tablet 10 Mg PO DAILY Loratadine 10 Mg Tablet 10 Mg PO DAILY Loperamide (Loperamide Hcl) 2 Mg Tablet 2 Mg PO PRN QID PRN Lisinopril 10 Mg Tablet 10 Mg PO DAILY Levothyroxine Sodium 125 Mcg Tablet 125 Mcg PO DAILYAC Levetiracetam 500 Mg Tablet 500 Mg PO BID Levemir Flextouch (Insulin Detemir) 100 Unit/1 Ml Insuln.pen 10 Unit SQ QHS Ibuprofen 200 Mg Tablet 200-400 Mg PO PRN Q4HRS PRN Donepezil Hcl 10 Mg Tablet 10 Mg PO DAILY Cranberry (Cranberry Extract) 425 Mg Capsule 425 Mg PO BID Vitamin D (Cholecalciferol (Vitamin D3)) 2,000 Unit Capsule 2,000 Unit PO DAILY Carvedilol 6.25 Mg Tablet 1 Tab PO BID Benzonatate 200 Mg Capsule 200 Mg PO PRN Q8HRS PRN Atorvastatin Calcium 20 Mg Tablet 20 Mg PO QHS Aspirin 81 Mg Tab.chew 81 Mg PO DAILY Ascorbic Acid 500 Mg Tablet 500 Mg PO BID Amlodipine Besylate 10 Mg Tablet 10 Mg PO DAILY Alprazolam 0.25 Mg Tablet 0.25 Mg PO PRN Q6HRS PRN Tylenol (Acetaminophen) 325 Mg Tablet 650 Mg PO PRN Q4HRS PRN Diagnosis: Problems: (1) Anemia (2) Dementia (3) Hyperglycemia (4) Hypotension (5) Suicidal ideation (6) Elevated lactic acid level (7) Generalized weakness (8) Renal insufficiency VÍCTOR DECKER MD May 19, 2016 21:02
[2016-05-19] MEDS: ASCORBIC ACID 500 MG TABLET PO SCH (21:05)
[2016-05-19] MEDS: LEVETIRACETAM 500 MG TABLET PO SCH (21:05)
[2016-05-19 23:06] VITALS: BP 131/75
[2016-05-20 05:16] VITALS: BP 118/69
[2016-05-20 06:28] LABS: BASO # 0.1 x10^3/uL (0.0-0.2); BASO % 1 % (0-3); EOS % 1 % (0-3); HEMATOCRIT 28.2 % (36.0-47.0); HEMOGLOBIN 9.6 g/dL (12.0-15.5); LYMPH # 1.2 x10^3/uL (1.0-4.8); LYMPH % 19 % (24-48); MEAN CORPUSCULAR HEMOGLOBIN 32 pg (25-35); MEAN CORPUSCULAR HGB CONC 34 g/dL (31-37); MEAN CORPUSCULAR VOLUME 95 fL (79-100); MONO # 0.5 x10^3/uL (0.0-1.1); MONO % 8 % (0-9); NEUT # 4.5 x10^3uL (1.8-7.7); NEUT % 72 % (31-73); PLATELET COUNT 320 x10^3/uL (140-400); RED BLOOD COUNT 2.96 x10^6/uL (3.50-5.40); RED CELL DISTRIBUTION WIDTH 13.7 % (11.5-14.5); WHITE BLOOD COUNT 6.3 x10^3/uL (4.0-11.0)
[2016-05-20 06:41] LABS: ALBUMIN 2.7 g/dL (3.4-5.0); ALBUMIN/GLOBULIN RATIO 0.9 (1.0-1.7); CREATININE 0.9 mg/dL (0.6-1.0); GFR 59.8; POTASSIUM 3.1 mmol/L (3.5-5.1); TOTAL BILIRUBIN 0.2 mg/dL (0.2-1.0); TOTAL PROTEIN 5.8 g/dL (6.4-8.2)
[2016-05-20] MEDS ORDERED: LEVOTHYROXINE 125 MCG TABLET PO SCH (07:30)
[2016-05-20] MEDS ORDERED: METFORMIN 500 MG TABLET. PO SCH (08:00)
[2016-05-20 08:42] VITALS: BP 152/79
[2016-05-20] MEDS ORDERED: MEMANTINE 10 MG TABLET. PO SCH (09:00)
[2016-05-20] MEDS ORDERED: ASPIRIN 81 MG TAB.CHEW PO SCH (09:00)
[2016-05-20] MEDS ORDERED: LISINOPRIL 10 MG TABLET PO SCH (09:00)
[2016-05-20] MEDS ORDERED: DONEPEZIL HCL 10 MG TABLET PO SCH (09:00)
[2016-05-20] MEDS ORDERED: CETIRIZINE HCL 10 MG TABLET PO SCH (09:00)
[2016-05-20] MEDS ORDERED: CHOLECALCIFEROL (VITAMIN D3) 1,000 UNIT TABLET PO SCH (09:00)
[2016-05-20] MEDS ORDERED: AMLODIPINE BESYLATE 10 MG TABLET PO SCH (09:00)
[2016-05-20] MEDS ORDERED: CALCIUM CARBONATE 500 MG TAB.CHEW PO SCH (09:00)
[2016-05-20] MEDS: LEVETIRACETAM 500 MG TABLET PO SCH (09:29)
[2016-05-20] MEDS: CARVEDILOL 6.25 MG TABLET PO SCH (09:29)
[2016-05-20] MEDS: ASCORBIC ACID 500 MG TABLET PO SCH (09:29)
[2016-05-20 14:37] VITALS: BP 107/54
[2016-05-20 16:00] VITALS: BP 122/68
--- NOTE | 2016-05-20 20:27 | DS ---
DATE OF DISCHARGE: 05/20/2016 HOSPITAL COURSE: The patient is an 85-year-old female patient who lives in an assisted living facility who apparently has had pneumonia and flu was hospitalized at [facility]. She was extremely debilitated. She was discharged to rehab center for 1 week. The patient has suicidal ideation and was talking about having a gun and shooting herself in her abdomen. She was sent to the Emergency Room at [facility] for medical clearance for psych admission. The patient's daughter states that she has depression and suicidal ideation for more than a year now. She was evaluated in the Emergency Room, initially was hypertensive and has lactic acidosis. A decision was made to admit her to [address] [place] [address] for medical stabilization. She did very well. PHYSICAL EXAMINATION: GENERAL: Today, she was resting slightly propped up in bed, in no apparent respiratory distress. She was awake, alert, but obviously confused. She was pale, cachectic, but no jaundice, cyanosis or thyromegaly. No jugular venous distention. No limb edema. VITAL SIGNS: Her heart rate was 74, blood pressure was 107/54, temperature was 98.6, respiratory rate 20, and oxygen saturation was 95%. HEAD, EYES, EARS, NOSE AND THROAT: Showed normocephalic, atraumatic. NECK: Supple. HEART: Showed normal first and second heart sounds with no gallop, rub or murmur. CHEST: Clear to auscultation. No crepitation or rhonchi. ABDOMEN: Distended, soft, nontender. NEUROLOGIC: She was demented without any obvious lateralizing signs. The patient is able to ambulate with a walker. Her intake over the last 24 hours was incompletely recorded. LABORATORY DATA: Her lab work this morning showed a white cell count of 6300, hemoglobin 9.6, hematocrit 28.2, MCV 95 and platelet count 320,000. Her serum sodium was 145, potassium 3.1, chloride 110, bicarbonate 30, anion gap of 5, BUN 13, creatinine 0.9. Estimated GFR was 60 mL per minute. Her glucose was 62, calcium was 9. Total bilirubin, AST, ALT, alkaline phosphatase were normal. Her total protein was 5.8, albumin was 2.7. DISCHARGE MEDICATIONS: The patient was [facility] for [facility] stabilization to continue on acetaminophen 650 mg every 4 hours, alprazolam 0.25 mg every 6 hours p.r.n. for anxiety, amlodipine besylate 10 mg daily, ascorbic acid 500 mg p.o. b.i.d., aspirin 81 mg once a day, atorvastatin calcium 20 mg once a day, benzonatate 200 mg every 8 hours, calcium carbonate for Tums once a day, carvedilol 6.25 mg twice a day, cholecalciferol, vitamin D3 2000 units p.o. daily, cranberry extract 425 mg p.o. b.i.d., donepezil for Aricept 10 mg once a day, ibuprofen 200 mg to 400 mg every 4 hours, detemir insulin 10 units at bedtime, levetiracetam 500 mg p.o. b.i.d., levothyroxine sodium 125 mcg once a day, lisinopril 10 mg once a day, loperamide 2 mg q.i.d., loratadine 10 mg once a day, Namenda 10 mg daily, metformin 500 mg p.o. b.i.d., mirtazapine 15 mg at bedtime, and quetiapine fumarate for Seroquel 12.5 mg at bedtime. FINAL DISCHARGE DIAGNOSES: Hypertension, lactic acidosis, resolved, anemia, chronic renal failure, seizure disorder, hypothyroidism, hyperlipidemia, vitamin D deficiency, and dementia. CHRISTIANO RUVALCABA MD DR: NARESH/leonela JOB#: [id number] / [id number]
== END 2016-05-20 16:29 | disposition short-term general hospital (02) | DRG 682 ==
LOC: EEVIPCON 09:54 → ER 09:54 → 1 SOUTH 11:38
PROVIDERS: ADMIT Internal Medicine; ATTEND Internal Medicine
DX: N17.0 Acute kidney failure with tubular necrosis (principal); E43 Unspecified severe protein-calorie malnutrition; E87.2 Acidosis; R45.851 Suicidal ideations; I12.9 Hypertensive chronic kidney disease with stage 1 through stage 4 chronic kidney disease, or unspecified chronic kidney disease; G40.909 Epilepsy, unspecified, not intractable, without status epilepticus; E03.9 Hypothyroidism, unspecified; E11.22 Type 2 diabetes mellitus with diabetic chronic kidney disease; D63.1 Anemia in chronic kidney disease; E11.65 Type 2 diabetes mellitus with hyperglycemia; E78.5 Hyperlipidemia, unspecified; F03.90 Unspecified dementia, unspecified severity, without behavioral disturbance, psychotic disturbance, mood disturbance, and anxiety; N18.9 Chronic kidney disease, unspecified; Z96.652 Presence of left artificial knee joint; E55.9 Vitamin D deficiency, unspecified; I95.9 Hypotension, unspecified; Z88.5 Allergy status to narcotic agent; Z88.8 Allergy status to other drugs, medicaments and biological substances
CPT/HCPCS: 36415; 71010; 80053; 81001; 82947; 83605; 85027; 87040; 87641; 93005; 96374; J1815; J2543; J7040; 99285-25

== ENCOUNTER 2018-05-25 11:13 | Inpatient (IN) | payer MEDICARE, OTHER ==
[~2018-05-25] VITALS: Ht 167.6 cm; Wt 59.0 kg
[~2018-05-25 11:13] MED LIST: ACET325T9 PO; ALPR0.254 PO; AMLO10TA8 PO; ASCO500T3 PO; ASPI-630 PO; ATOR20TA58 PO; BENZ200C47 PO; CALC200T3 PO; CARV6.2541 PO; CHOL2000 PO; CRAN425C3 PO; DOCU100C28 PO; DOCU240C30 PO; DONE10TA7 PO; ESCITALOPRAM OX10 MG PO; IBUP-1227 PO; INSU100I27 SQ; LEVE500T6 PO; LEVO125T5 PO; LISI10TA2 PO; LOPE2TAB27 PO; LORA10TA3 PO; MAG30ORA2 PO; MAGN2400 PO; MAGN400T3 PO; MEMA10TA PO; METF500T16 PO; METH29OI TP; MIRT30TA3 PO; PREN1TAB80 PO; QUET25TA5 PO
[2018-05-25] MEDS ORDERED: METHYL SALICYLATE/MENTHOL TOPICAL OINTMENT 29GM TUBE. TP PRN (11:45)
[2018-05-25 12:03] VITALS: BP 101/70
[2018-05-25] MEDS ORDERED: CALC-98 PO (12:12)
[2018-05-25] MEDS ORDERED: MEMA1CAP3 PO (12:12)
[2018-05-25] MEDS ORDERED: GABA-585 PO (12:12)
[2018-05-25] MEDS ORDERED: INSU100I13 SQ (12:12)
[2018-05-25] MEDS ORDERED: GLUC1KIT IM (12:12)
[2018-05-25] MEDS ORDERED: MELA3TAB2 PO (12:12)
[2018-05-25] MEDS ORDERED: POLY17PO5 PO (12:12)
[2018-05-25] MEDS ORDERED: INSU100I17 SQ (12:20)
[2018-05-25] MEDS ORDERED: GLUCAGON,HUMAN RECOMBINANT 1 MG KIT. IM PRN (12:45)
[2018-05-25] MEDS: INSULIN LISPRO 300 UNITS/3 ML INSULN.PEN. SQ SCH ×2 (13:35→17:11)
[2018-05-25 16:09] VITALS: BP 140/81
[2018-05-25] MEDS: PRENATAL MULTIVITAMIN TABLET. PO SCH (16:19)
[2018-05-25] MEDS: CARVEDILOL 6.25 MG TABLET PO SCH (16:20)
[2018-05-25] MEDS: amLODIPine BESYLATE 10 MG TABLET PO SCH (20:26)
[2018-05-25] MEDS: MELATONIN 3 MG TABLET PO SCH (20:27)
[2018-05-25] MEDS: DONEPEZIL HCL 5 MG TABLET. PO SCH (20:27)
[2018-05-25] MEDS: GABAPENTIN 100 MG CAPSULE. PO SCH (20:27)
[2018-05-25] MEDS: levETIRAcetam 500 MG TABLET PO SCH (20:27)
[2018-05-25] MEDS: INSULIN GLARGINE 300 UNITS/3 ML INSULN.PEN. SQ SCH (20:28)
--- NOTE | 2018-05-25 22:44 | PDOC ---
Exam Note: Miguelito Note: Please also refer to the separate dictated note~for this date of service dictated separately. Discussed the patient with Nursing staff reviewed the chart.~Reviewed interim history and current functioning. Reviewed vital signs,~ Labs/ Radiology~and current medications noted below. Continue current treatment with the changes noted in the dictated addendum note Assessment: Vital Signs: Vital Signs Date Time Temp Pulse Resp B/P (MAP) Pulse Ox O2 Delivery O2 Flow Rate FiO2 05/25/18 20:26 76 140/81 05/25/18 16:09 97.8 18 100 Room Air Labs: Laboratory Tests Test 05/25/18 13:04 05/25/18 16:49 05/25/18 19:14 Glucose (Fingerstick) 331 mg/dL (70-99) H 205 mg/dL (70-99) H 234 mg/dL (70-99) H Current Medications: Meds: Current Medications Carvedilol (Coreg) 6.25 mg BIDWMEALS PO Last administered on 05/25/18at 16:20; Start 05/25/18 at 17:00 Multi-Ingredient Ointment (Analgesic [place]) 1 [place] PRN QID PRN TP MUSCLE PAIN; Start 05/25/18 at 11:45 Aspirin (Children'S Aspirin) 81 mg DAILYWBKFT PO ; Start 05/26/18 at 08:00 Vitamin D (Vitamin D3) 2,000 unit DAILY PO ; Start 05/26/18 at 09:00 Docusate Sodium (Colace) 100 mg DAILY PO ; Start 05/26/18 at 09:00 Levetiracetam (Keppra) 500 mg BID PO Last administered on 05/25/18at 20:27; Start 05/25/18 at 21:00 Magnesium Hydroxide (Milk Of Magnesia) 2,400 mg PRN QHS PRN PO CONSTIPATION; Start 05/25/18 at 12:45 Magnesium Oxide (Magnesium Oxide) 400 mg DAILY PO ; Start 05/26/18 at 09:00 Multivit/ Folic Acid/Iron (Multivitamin ) 1 tab DAILYBFRSUP PO Last administered on 05/25/18at 16:19; Start 05/25/18 at 17:00 Gabapentin (Neurontin) 100 mg BID PO Last administered on 05/25/18at 20:27; Start 05/25/18 at 21:00 Insulin Glargine (Lantus) 8 units QHS SQ Last administered on 05/25/18at 20:28; Start 05/25/18 at 21:00 Amlodipine Besylate (Norvasc) 10 mg QHS PO Last administered on 05/25/18at 20:26 ; Start 05/25/18 at 21:00 Citalopram Hydrobromide (CeleXA) 10 mg DAILY PO ; Start 05/26/18 at 09:00 Glucagon (Glucagen Kit) 1 mg PRN DAILY PRN IM HYPOGLYCEMIA; Start 05/25/18 at 12:45 Insulin Human Lispro (HumaLOG) IF FSBS = , Then Gi... TIDAFTMEAL SQ Last administered on 05/25/18at 17:11; Start 05/25/18 at 13:00 Levothyroxine Sodium (Synthroid) 125 mcg DAILY06 PO ; Start 05/26/18 at 06:00 Melatonin 6 mg QHS PO Last administered on 05/25/18at 20:27; Start 05/25/18 at 21:00 Memantine (Namenda) 10 mg BID PO ; Start 05/26/18 at 09:00 Polyethylene Glycol (miraLAX) 17 gm DAILY PO ; Start 05/26/18 at 09:00 Calcium/Vitamin D (Oscal D 500mg/ 200uts) 1 tab DAILY PO ; Start 05/26/18 at 09: 00 Olanzapine (ZyPREXA ZYDIS) 2.5 mg Q2HR PRN PO PSYCHOSIS/AGITATION; Start at 13:00 Donepezil HCl (Aricept) 5 mg BID PO Last administered on 05/25/18at 20:27; Start 05/25/18 at 21:00 Active Scripts Active Reported Novolog Flexpen (Insulin Aspart) 100 Unit/1 Ml Insuln.pen 4-10 Unit SQ TIDAFTMEAL Namzaric 28 mg-10 mg Capsule (Memantine HCl/Donepezil HCl) 1 Each Cap.spr.24 1 Each PO QHS Miralax (Polyethylene Glycol 3350) 17 Gm Powd.pack 17 Gm PO DAILY Melatonin 3 Mg Tablet 5 Mg PO QHS Lantus Solostar (Insulin Glargine,Hum.rec.anlog) 100 Unit/1 Ml Insuln.pen 8 Unit SQ QHS Glucagon Emergency Kit (Glucagon,Human Recombinant) 1 Mg Kit 1 Mg IM PRN Neurontin (Gabapentin) 100 Mg Capsule 100 Mg PO BID Calcium + Vitamin D Tablet (Calcium Carbonate/Vitamin D3) 1 Each Tablet Unknown Dose PO DAILY Surfak (Docusate Calcium) 240 Mg Capsule 240 Mg PO DAILY Formula ( Vit W-Ca,Fe,FA(<1 mg)) 1 Each Tablet 1 Each PO DAILYBFRSUP Analgesic [place] (Methyl Salicylate/Menthol) 29 Gm Oint...g. 1 [place] TP PRN QID PRN Magnesium Oxide 400 Mg Tablet 1 Tab PO DAILY Milk Of Magnesia (Magnesium Hydroxide) 2,400 Mg/10 Ml Oral.susp 2,400 Mg PO PRN QHS PRN Escitalopram Oxalate 10 Mg Tablet 5 Mg PO DAILY Levothyroxine Sodium 125 Mcg Tablet 125 Mcg PO DAILY06 Levetiracetam 500 Mg Tablet 500 Mg PO BID Vitamin D (Cholecalciferol (Vitamin D3)) 2,000 Unit Capsule 2,000 Unit PO DAILY Carvedilol (Carvedilol) 6.25 Mg Tablet 1 Tab PO BIDWMEALS Aspirin 81 Mg Tab.chew 81 Mg PO DAILY Amlodipine Besylate 10 Mg Tablet 10 Mg PO QHS I have reviewed the current psychotropics carefully including drug interactions. Risk benefit ratio favors no change other than as noted in my dictated progress note. Diagnosis: Problems: (1) Anxiety disorder (2) Impulse control disorder (3) Dementia, vascular, with delusions (4) Dementia, vascular, with depression (5) Dementia in Alzheimer's disease with delusions (6) Dementia in Alzheimer's disease with depression (7) Dementia without behavioral disturbance (8) Lactic acidosis (9) Anemia (10) Generalized weakness (11) Dementia (12) Hyperglycemia (13) Renal insufficiency (14) Hypotension (15) Suicidal ideation (16) Elevated lactic acid level VÍCTOR DECKER MD May 25, 2018 22:44
[2018-05-26] MEDS ORDERED: MAGNESIUM HYDROXIDE 2,400 MG/30 ML ORAL.SUSP. PO PRN (02:30)
[2018-05-26] MEDS ORDERED: ACETAMINOPHEN 325 MG TABLET PO PRN (02:30)
[2018-05-26] MEDS ORDERED: MAG HYDROX/AL HYDROX/SIMETH 30 ML ORAL.SUSP PO PRN (02:30)
--- NOTE | 2018-05-26 04:57 | EKG ---
[address] [address] Test Date: 2018-05-26 Test Time: 04:39:13 Pat Name: MELINDA PERRY Department: Room: [address] [place] [address] Gender: F Forestry Laborer: JAMES : 1930 Requested By: VÍCTOR DECKER Order Number: [id number] Reading MD: Andrzej Tejada MD Measurements Intervals [place] Rate: 62 P: -90 MN: 270 QRS: 7 QRSD: 90 T: 20 QT: 438 QTc: 447 Interpretive Statements ATRIAL PACED RHYTHM PROBABLE 1ST DEGREE AVB Electronically Signed On 05-28-2018 10:13:07 CDT by Andrzej Tejada MD
[2018-05-26] MEDS: LEVOTHYROXINE 125 MCG TABLET PO SCH (05:20)
[2018-05-26 05:54] VITALS: BP 135/70
[2018-05-26 06:26] LABS: BASO # 0.1 x10^3/uL (0.0-0.2); BASO % 1 % (0-3); EOS # 0.1 x10^3/uL (0.0-0.7); EOS % 1 % (0-3); HEMATOCRIT 37.3 % (36.0-47.0); HEMOGLOBIN 12.8 g/dL (12.0-15.5); LYMPH # 1.8 x10^3/uL (1.0-4.8); LYMPH % 23 % (24-48); MEAN CORPUSCULAR HEMOGLOBIN 33 pg (25-35); MEAN CORPUSCULAR HGB CONC 35 g/dL (31-37); MEAN CORPUSCULAR VOLUME 95 fL (79-100); MONO # 0.5 x10^3/uL (0.0-1.1); MONO % 6 % (0-9); NEUT # 5.5 x10^3uL (1.8-7.7); NEUT % 69 % (31-73); PLATELET COUNT 225 x10^3/uL (140-400); RED BLOOD COUNT 3.93 x10^6/uL (3.50-5.40); WHITE BLOOD COUNT 8.1 x10^3/uL (4.0-11.0)
[2018-05-26 06:44] LABS: ALBUMIN 3.9 g/dL (3.4-5.0); ALBUMIN/GLOBULIN RATIO 1.1 (1.0-1.7); CALCIUM 10.2 mg/dL (8.5-10.1); GFR 52.7; MAGNESIUM 2.1 mg/dL (1.8-2.4); POTASSIUM 3.7 mmol/L (3.5-5.1); TOTAL BILIRUBIN 0.4 mg/dL (0.2-1.0); TOTAL PROTEIN 7.6 g/dL (6.4-8.2)
[2018-05-26] MEDS: levETIRAcetam 500 MG TABLET PO SCH ×2 (08:12→20:22)
[2018-05-26] MEDS: DONEPEZIL HCL 5 MG TABLET. PO SCH ×2 (08:13→20:22)
[2018-05-26] MEDS: CARVEDILOL 6.25 MG TABLET PO SCH ×2 (08:15→16:52)
[2018-05-26] MEDS: INSULIN LISPRO 300 UNITS/3 ML INSULN.PEN. SQ SCH ×3 (08:19→16:55)
[2018-05-26] MEDS: CALCIUM CARB/VIT D3 500/200 TABLET PO SCH (08:25)
[2018-05-26] MEDS: GABAPENTIN 100 MG CAPSULE. PO SCH ×2 (08:25→20:22)
[2018-05-26] MEDS: ASPIRIN 81 MG TAB.CHEW PO SCH (08:26)
[2018-05-26] MEDS: MAGNESIUM OXIDE 400 MG TABLET PO SCH (08:26)
[2018-05-26] MEDS: CHOLECALCIFEROL (VITAMIN D3) 1,000 UNIT TABLET PO SCH (08:26)
[2018-05-26] MEDS: CITALOPRAM 10 MG TABLET. PO SCH (08:26)
[2018-05-26] MEDS: MEMANTINE 10 MG TABLET. PO SCH ×2 (08:26→20:21)
[2018-05-26] MEDS: DOCUSATE SODIUM 100 MG CAPSULE PO SCH (08:26)
[2018-05-26] MEDS: POLYETHYLENE GLYCOL 3350 17 GM PACKET. PO SCH (08:27)
[2018-05-26 10:43] LABS: THYROID STIM HORMONE (TSH) 8.472 uIU/mL (0.358-3.740)
[2018-05-26 11:07] LABS: THYROXINE 5.9 ug/dL (4.5-12.0)
--- NOTE | 2018-05-26 11:21 | PN ---
DATE: 05/25/2018 PSYCHIATRIC PROGRESS NOTE This late entry 05/25/2018, covers elements not covered in my initial note. SUBJECTIVE: I met with the patient evening of 05/25/2018. Discussed with nursing staff, reviewed the chart, previously discussed with Ayde De Jesus, audio visual coordinator and reviewed information from [facility], prompting this referral. IDENTIFYING DATA: The patient is an 87-year-old female referred to us from [facility] by Dr. Milan Medina, her primary care physician, on account of increased agitation, aggression, being combative with staff, delusional. She thinks the EMS is taking people from the facility "to kill them." She is attempting to transfer by herself, has a fall risk. Refusing to talk to the ER staff. Behaviors have been unmanageable, dangerous, out of control within the context of her significant dementia. The patient is referred for inpatient psychiatric stabilization. CHIEF COMPLAINT: "No." The patient is quite confused, but otherwise pleasant, smiling at her wheelchair. HISTORY OF PRESENT ILLNESS: The patient has a history of dementia, Alzheimer's and vascular type. She has been residing at [facility] for some time and recently is getting increasingly agitated, restless. She has had some sleep and appetite changes, marked anxiety, impulsiveness and worsening confusion. No clear history of bipolar disorder, suicidal or homicidal ideation. PAST PSYCHIATRIC HISTORY: As above. MEDICAL HISTORY: Positive for anemia, hypothyroidism, diabetes mellitus, seizure disorder, hypertension, chronic constipation, chronic kidney disease, vitamin D deficiency. and at bedtime. ACCU-CHEKS: Before meals and at bedtime. DIET: Mechanical soft. UA on 05/24/2018 was negative. CODE STATUS: DNR. ALLERGIES: DICLOFENAC AND OXYCODONE. CURRENT PSYCHOTROPICS: Celexa 10 mg a day, Zyprexa p.r.n. FAMILY HISTORY: Noncontributory. SOCIAL HISTORY: No history of alcohol, drug abuse, physical, sexual or elder abuse history is noted. She is not known to be a perpetrator. REACTION TO HOSPITALIZATION: The patient accepting of it. ASSETS: Supportive living at the group home. IMPRESSION: Major neurocognitive disorder, Alzheimer, vascular with delusion, depression, behavioral disturbance; anxiety disorder, unspecified; impulse control disorder, unspecified. Rest as above. PLAN: Admit to the Geropsychiatry Unit at [facility]. I will see the patient daily individually from a psychiatric standpoint, medical followup with Dr. Bro. Continue the patient on her current psychotropics, observe baseline, then adjust as clinically indicated. Estimated length of stay 10-12 days. DISPOSITION: Back to [facility] when stable. MAN Calvin DECKER MD DR: ANDRAE/leonela JOB#: [id number] / [id number]
--- NOTE | 2018-05-26 16:05 | CONS ---
DATE OF CONSULTATION: REASON FOR CONSULTATION: Medical management. HISTORY OF PRESENT ILLNESS: The patient is an 87-year-old female patient who was referred [facility] from [facility] by her primary care physician on account of increased agitation and aggression, being combative with staff, delusional. She thinks the EMS is taking people from the facility "to kill them." She is attempting to transfer by herself, has a fall risk. She has refused to talk the ER staff. Behaviors have been unmanageable, dangerous, out of control within the context of her significant dementia and was admitted to this unit for inpatient psychiatric stabilization. The patient was very lethargic this morning when I saw her and she does open her eyes. She was refusing to talk me and become now and then aggressive and violent. PAST MEDICAL HISTORY: Significant for anemia, hypothyroidism, diabetes mellitus, seizure disorder, hypertension, chronic constipation, chronic kidney disease, vitamin D deficiency. PAST SURGICAL HISTORY: Unobtainable. PAST PSYCHIATRIC HISTORY: Significant for dementia of Alzheimer, vascular type. She has been a resident at [facility] for some time; however, recently, she became getting increasingly agitated, restless. She is very impulsive with worsening confusion. There is no clear history of bipolar disorder, suicidal or homicidal ideation. ALLERGIES: SHE IS ALLERGIC TO DICLOFENAC AND OXYCODONE. FAMILY HISTORY: Noncontributory. SOCIAL HISTORY: She has been residing at the [facility]. No further information available or obtainable from the patient. MEDICATIONS: She is currently on following medications: She is on carvedilol 6.25 mg twice a day, amlodipine 10 mg at bedtime, aspirin 81 mg once a day. She is on Analgesic [place] applied topically 4 times a day, gabapentin 100 mg twice a day, Keppra 500 mg twice a day, escitalopram oxalate 5 mg daily and Namzaric 28/10 mg daily, calcium carbonate with vitamin D3 one tablet daily, magnesium oxide 400 mg once a day, Colace 240 mg once a day, magnesium hydroxide for milk of magnesia 30 mL p.o. daily p.r.n. for constipation, polyethylene glycol 17 grams p.o. daily. She is on NovoLog insulin 4 to 10 units before meals and Lantus insulin 8 units at bedtime. She is on glucagon 1 mg intramuscular as needed for hypoglycemia, levothyroxine sodium 125 mcg once a day, cholecalciferol for vitamin D3 2000 international units once a day, multivitamin 1 tablet once a day, melatonin 5 mg at bedtime for insomnia. REVIEW OF SYSTEMS: Unobtainable. The patient was uncooperative and did not answer any of my questions. PHYSICAL EXAMINATION: GENERAL: When I examined her, she was definitely pale, cachectic, but no jaundice or cyanosis. No lymphadenopathy, no thyromegaly. No jugular venous distention. No limb edema. VITAL SIGNS: Her heart rate was 60, blood pressure 135/70, temperature was 97.3, respiratory rate was 16, and oxygen saturation was 98% on room air. HEAD, EYES, EARS, NOSE, AND THROAT: Showed she is normocephalic, atraumatic. NECK: Supple. HEART: Showed normal first and second heart sounds. No gallop, rub or murmur. CHEST: Clear to auscultation. No crepitation or rhonchi. ABDOMEN: Distended, soft, nontender. NEUROLOGIC: She was very lethargic, leaning towards the right side. She could hardly open her eyes. However, grossly all her cranial nerves are intact. EXTREMITIES: She moves all extremities without difficulty. She apparently mostly bed bound and chair bound. LABORATORY DATA: Showed a white cell count of 8100, hemoglobin 13, hematocrit 37, MCV 95, and platelet count 225,000 with normal manual differential. Her chemistry showed a serum sodium of 143, potassium 3.7, chloride 107, bicarbonate 25, anion gap of 11, BUN 19, creatinine 1, estimated GFR was 53 mL per minute. Her glucose was 88, calcium was 10.2, magnesium was 2.1. Total bilirubin, AST, ALT, alkaline phosphatase were normal. Total protein was 7.6, albumin 3.9. Her serum iron was 51, TIBC was high at 326 and percent saturation was 16%. Her serum triglycerides was 60, total cholesterol 179, LDL was 101, VLDL was 12, HDL was 66 and a ratio was 2. Her TSH was slightly high at 8.472; however, total T4 and total T3 were normal. IMPRESSION: In summary, this is an 87-year-old female patient who was referred from [facility] on account of worsening increased agitation, aggression, being combative with staff, delusional, all this in a background of dementia, Alzheimer, vascular type. Medically, she has multiple medical problems including type 2 diabetes mellitus, hypothyroidism, hypertension, chronic kidney disease, seizure disorder, vitamin D deficiency; however, all her vital signs seem to be well within normal range. All her lab work seems to be also within acceptable range. She does have chronic kidney disease and her blood sugar is suboptimally controlled. Her hemoglobin is about 13, hematocrit 37 with a normal MCV, white cell count and platelets. All in all, she seemed to be medically stable. I will follow obviously all these lab work that are still pending at the time of this dictation and make any necessary recommendation. Thank you, Dr. Harry, for allowing me to participate in the care of this patient. CHRISTIANO RUVALCABA MD DR: NARESH/leonela JOB#: [id number] / [id number]
[2018-05-26 16:31] VITALS: BP 118/64
[2018-05-26] MEDS: PRENATAL MULTIVITAMIN TABLET. PO SCH (16:51)
[2018-05-26] MEDS: MELATONIN 3 MG TABLET PO SCH (20:21)
[2018-05-26] MEDS: INSULIN GLARGINE 300 UNITS/3 ML INSULN.PEN. SQ SCH (20:23)
[2018-05-26] MEDS: amLODIPine BESYLATE 10 MG TABLET PO SCH (20:43)
--- NOTE | 2018-05-26 23:11 | PDOC ---
Exam Note: Miguelito Note: Please also refer to the separate dictated note~for this date of service dictated separately.~Patient seen individually. Discussed the patient with Nursing staff reviewed the chart.~Reviewed interim history and current functioning. Reviewed vital signs,~Labs/ Radiology~and current medications noted below. Continue current treatment with the changes noted in the dictated addendum note Assessment: Vital Signs: Vital Signs Date Time Temp Pulse Resp B/P (MAP) Pulse Ox O2 Delivery O2 Flow Rate FiO2 05/26/18 20:43 65 127/80 05/26/18 16:31 96.8 20 95 Room Air I&O Intake and Output 05/26/18 07:00 Intake Total 440 ml Balance 440 ml Intake Oral 440 ml # Bowel Movements 1 Labs: Laboratory Tests Test 05/26/18 06:11 05/26/18 07:07 05/26/18 11:35 05/26/18 16:33 White Blood Count 8.1 x10^3/uL (4.0-11.0) Red Blood Count 3.93 x10^6/uL (3.50-5.40) Hemoglobin 12.8 g/dL (12.0-15.5) Hematocrit 37.3 % (36.0-47.0) Mean Corpuscular Volume 95 fL (79-100) Mean Corpuscular Hemoglobin 33 pg (25-35) Mean Corpuscular Hemoglobin Concent 35 g/dL (31-37) Red Cell Distribution Width 13.0 % (11.5-14.5) Platelet Count 225 x10^3/uL (140-400) Neutrophils (%) (Auto) 69 % (31-73) Lymphocytes (%) (Auto) 23 % (24-48) L Monocytes (%) (Auto) 6 % (0-9) Eosinophils (%) (Auto) 1 % (0-3) Basophils (%) (Auto) 1 % (0-3) Neutrophils # (Auto) 5.5 x10^3uL (1.8-7.7) Lymphocytes # (Auto) 1.8 x10^3/uL (1.0-4.8) Monocytes # (Auto) 0.5 x10^3/uL (0.0-1.1) Eosinophils # (Auto) 0.1 x10^3/uL (0.0-0.7) Basophils # (Auto) 0.1 x10^3/uL (0.0-0.2) Sodium Level 143 mmol/L (136-145) Potassium Level 3.7 mmol/L (3.5-5.1) Chloride Level 107 mmol/L (98-107) Carbon Dioxide Level 25 mmol/L (21-32) Anion Gap 11 (6-14) Blood Urea Nitrogen 19 mg/dL (7-20) Creatinine 1.0 mg/dL (0.6-1.0) Estimated GFR (Cockcroft-Gault) 52.7 BUN/Creatinine Ratio 19 (6-20) Glucose Level 88 mg/dL (70-99) Calcium Level 10.2 mg/dL (8.5-10.1) H Magnesium Level 2.1 mg/dL (1.8-2.4) Iron Level 51 ug/dL (50-170) Total Iron Binding Capacity 326 ug/dL (250-450) Iron Saturation 16 % (15-34) Total Bilirubin 0.4 mg/dL (0.2-1.0) Aspartate Amino Transferase (AST) 15 U/L (15-37) Alanine Aminotransferase (ALT) 15 U/L (14-59) Alkaline Phosphatase 90 U/L (46-116) Total Protein 7.6 g/dL (6.4-8.2) Albumin 3.9 g/dL (3.4-5.0) Albumin/Globulin Ratio 1.1 (1.0-1.7) Triglycerides Level 60 mg/dL (0-150) Cholesterol Level 179 mg/dL (0-200) LDL Cholesterol, Calculated 101 mg/dL (0-100) H VLDL Cholesterol, Calculated 12 mg/dL (0-40) Non-HDL Cholesterol Calculated 113 mg/dL (0-129) HDL Cholesterol 66 mg/dL (40-60) H Cholesterol/HDL Ratio 2.0 Thyroid Stimulating Hormone (TSH) 8.472 uIU/mL (0.358-3.740) Thyroxine (T4) 5.9 ug/dL (4.5-12.0) Total Triiodothyronine (TT3) 101 ng/dL (71-180) Glucose (Fingerstick) 115 mg/dL (70-99) H 258 mg/dL (70-99) H 89 mg/dL (70-99) Test 05/26/18 19:28 Glucose (Fingerstick) 260 mg/dL (70-99) H Current Medications: Meds: Current Medications Carvedilol (Coreg) 6.25 mg BIDWMEALS PO Last administered on 05/26/18 16:52; Start 05/25/18 at 17:00 Multi-Ingredient Ointment (Analgesic [place]) 1 [place] PRN QID PRN TP MUSCLE PAIN; Start 05/25/18 at 11:45 Aspirin (Children'S Aspirin) 81 mg DAILYWBKFT PO Last administered on 08:26; Start 05/26/18 at 08:00 Vitamin D (Vitamin D3) 2,000 unit DAILY PO Last administered on 05/26/18 08:26 ; Start 05/26/18 at 09:00 Docusate Sodium (Colace) 100 mg DAILY PO Last administered on 05/26/18 08:26; Start 05/26/18 at 09:00 Levetiracetam (Keppra) 500 mg BID PO Last administered on 05/26/18 20:22; Start 05/25/18 at 21:00 Magnesium Hydroxide (Milk Of Magnesia) 2,400 mg PRN QHS PRN PO CONSTIPATION; Start 05/25/18 at 12:45 Magnesium Oxide (Magnesium Oxide) 400 mg DAILY PO Last administered on 08:26; Start 05/26/18 at 09:00 Multivit/ Folic Acid/Iron (Multivitamin ) 1 tab DAILYBFRSUP PO Last administered on 05/26/18 16:51; Start 05/25/18 at 17:00 Gabapentin (Neurontin) 100 mg BID PO Last administered on 05/26/18 20:22; Start 05/25/18 at 21:00 Insulin Glargine (Lantus) 8 units QHS SQ Last administered on 05/26/18 20:23; Start 05/25/18 at 21:00 Amlodipine Besylate (Norvasc) 10 mg QHS PO Last administered on 05/26/18 20:43 ; Start 05/25/18 at 21:00 Citalopram Hydrobromide (CeleXA) 10 mg DAILY PO Last administered on 05/26/18 08:26; Start 05/26/18 at 09:00 Glucagon (Glucagen Kit) 1 mg PRN DAILY PRN IM HYPOGLYCEMIA; Start 05/25/18 at 12:45 Insulin Human Lispro (HumaLOG) IF FSBS = , Then Gi... TIDAFTMEAL SQ Last administered on 05/26/18 12:25; Start 05/25/18 at 13:00 Levothyroxine Sodium (Synthroid) 125 mcg DAILY06 PO Last administered on 05:20; Start 05/26/18 at 06:00 Melatonin 6 mg QHS PO Last administered on 05/26/18 20:21; Start 05/25/18 at 21:00 Memantine (Namenda) 10 mg BID PO Last administered on 05/26/18 20:21; Start at 09:00 Polyethylene Glycol (miraLAX) 17 gm DAILY PO Last administered on 05/26/18 08: 27; Start 05/26/18 at 09:00 Calcium/Vitamin D (Oscal D 500mg/ 200uts) 1 tab DAILY PO Last administered on 08:25; Start 05/26/18 at 09:00 Olanzapine (ZyPREXA ZYDIS) 2.5 mg Q2HR PRN PO PSYCHOSIS/AGITATION Last administered on 05/26/18 08:13; Start 05/25/18 at 13:00 Donepezil HCl (Aricept) 5 mg BID PO Last administered on 05/26/18 20:22; Start 05/25/18 at 21:00 Acetaminophen (Tylenol) 650 mg PRN Q6HRS PRN PO PAIN / TEMP; Start 05/26/18 at 02:30 Al Hydroxide/Mg Hydroxide (Mylanta Plus Xs) 15 ml PRN AFTMEALHC PRN PO DYSPEPSIA; Start 05/26/18 at 02:30 Magnesium Hydroxide (Milk Of Magnesia) 2,400 mg PRN QHS PRN PO CONSTIPATION; Start 05/26/18 at 02:30 Buspirone HCl (Buspar) 5 mg BID PO ; Start 05/27/18 at 09:00; Status UNV Active Scripts Active Reported Novolog Flexpen (Insulin Aspart) 100 Unit/1 Ml Insuln.pen 4-10 Unit SQ TIDAFTMEAL Namzaric 28 mg-10 mg Capsule (Memantine HCl/Donepezil HCl) 1 Each Cap.spr.24 1 Each PO QHS Miralax (Polyethylene Glycol 3350) 17 Gm Powd.pack 17 Gm PO DAILY Melatonin 3 Mg Tablet 5 Mg PO QHS Lantus Solostar (Insulin Glargine,Hum.rec.anlog) 100 Unit/1 Ml Insuln.pen 8 Unit SQ QHS Glucagon Emergency Kit (Glucagon,Human Recombinant) 1 Mg Kit 1 Mg IM PRN Neurontin (Gabapentin) 100 Mg Capsule 100 Mg PO BID Calcium + Vitamin D Tablet (Calcium Carbonate/Vitamin D3) 1 Each Tablet Unknown Dose PO DAILY Surfak (Docusate Calcium) 240 Mg Capsule 240 Mg PO DAILY Formula ( Vit W-Ca,Fe,FA(<1 mg)) 1 Each Tablet 1 Each PO DAILYBFRSUP Analgesic [place] (Methyl Salicylate/Menthol) 29 Gm Oint...g. 1 [place] TP PRN QID PRN Magnesium Oxide 400 Mg Tablet 1 Tab PO DAILY Milk Of Magnesia (Magnesium Hydroxide) 2,400 Mg/10 Ml Oral.susp 2,400 Mg PO PRN QHS PRN Escitalopram Oxalate 10 Mg Tablet 5 Mg PO DAILY Levothyroxine Sodium 125 Mcg Tablet 125 Mcg PO DAILY06 Levetiracetam 500 Mg Tablet 500 Mg PO BID Vitamin D (Cholecalciferol (Vitamin D3)) 2,000 Unit Capsule 2,000 Unit PO DAILY Carvedilol (Carvedilol) 6.25 Mg Tablet 1 Tab PO BIDWMEALS Aspirin 81 Mg Tab.chew 81 Mg PO DAILY Amlodipine Besylate 10 Mg Tablet 10 Mg PO QHS I have reviewed the current psychotropics carefully including drug interactions. Risk benefit ratio favors no change other than as noted in my dictated progress note. Diagnosis: Problems: (1) Anxiety disorder (2) Impulse control disorder (3) Dementia, vascular, with delusions (4) Dementia, vascular, with depression (5) Dementia in Alzheimer's disease with delusions (6) Dementia in Alzheimer's disease with depression (7) Dementia without behavioral disturbance (8) Lactic acidosis (9) Anemia (10) Generalized weakness (11) Dementia (12) Hyperglycemia (13) Renal insufficiency (14) Hypotension (15) Suicidal ideation (16) Elevated lactic acid level VÍCTOR DECKER MD May 26, 2018 23:11
[2018-05-27] MEDS: LEVOTHYROXINE 125 MCG TABLET PO SCH ×2 (06:00→06:04)
[2018-05-27 06:19] VITALS: BP 149/79
[2018-05-27 06:24] LABS: HEMOGLOBIN A1C 8.9 % (4.8-5.6)
[2018-05-27] MEDS: CHOLECALCIFEROL (VITAMIN D3) 1,000 UNIT TABLET PO SCH (07:31)
[2018-05-27] MEDS: POLYETHYLENE GLYCOL 3350 17 GM PACKET. PO SCH (07:31)
[2018-05-27] MEDS: DOCUSATE SODIUM 100 MG CAPSULE PO SCH (07:32)
[2018-05-27] MEDS: CALCIUM CARB/VIT D3 500/200 TABLET PO SCH (07:32)
[2018-05-27] MEDS: levETIRAcetam 500 MG TABLET PO SCH ×2 (07:32→19:43)
[2018-05-27] MEDS: CITALOPRAM 10 MG TABLET. PO SCH (07:32)
[2018-05-27] MEDS: DONEPEZIL HCL 5 MG TABLET. PO SCH ×2 (07:32→19:43)
[2018-05-27] MEDS: MAGNESIUM OXIDE 400 MG TABLET PO SCH (07:32)
[2018-05-27] MEDS: MEMANTINE 10 MG TABLET. PO SCH ×2 (07:32→19:43)
[2018-05-27] MEDS: ASPIRIN 81 MG TAB.CHEW PO SCH (07:32)
[2018-05-27] MEDS: CARVEDILOL 6.25 MG TABLET PO SCH ×2 (07:33→17:13)
[2018-05-27] MEDS: GABAPENTIN 100 MG CAPSULE. PO SCH ×2 (07:36→19:43)
[2018-05-27] MEDS: busPIRone 5 MG TABLET. PO SCH ×2 (07:36→19:43)
[2018-05-27] MEDS: INSULIN LISPRO 300 UNITS/3 ML INSULN.PEN. SQ SCH ×3 (07:55→17:13)
[2018-05-27 16:45] VITALS: BP 137/88
[2018-05-27] MEDS: PRENATAL MULTIVITAMIN TABLET. PO SCH (17:12)
[2018-05-27] MEDS: amLODIPine BESYLATE 10 MG TABLET PO SCH (20:09)
[2018-05-27] MEDS: MELATONIN 3 MG TABLET PO SCH (20:10)
[2018-05-27] MEDS: INSULIN GLARGINE 300 UNITS/3 ML INSULN.PEN. SQ SCH (20:22)
--- NOTE | 2018-05-27 23:31 | PDOC ---
Exam Note: Miguelito Note: Please also refer to the separate dictated note~for this date of service dictated separately.~Patient seen individually. Discussed the patient with Nursing staff reviewed the chart.~Reviewed interim history and current functioning. Reviewed vital signs,~Labs/ Radiology~and current medications noted below. Continue current treatment with the changes noted in the dictated addendum note Assessment: Vital Signs: Vital Signs Date Time Temp Pulse Resp B/P (MAP) Pulse Ox O2 Delivery O2 Flow Rate FiO2 05/27/18 20:09 75 141/84 05/27/18 16:45 97.5 20 97 Room Air I&O Intake and Output 05/27/18 07:00 Intake Total 960 ml Balance 960 ml Intake Oral 960 ml # Voids 1 # Bowel Movements 1 Labs: Laboratory Tests Test 05/27/18 07:47 05/27/18 11:39 05/27/18 17:04 05/27/18 19:16 Glucose (Fingerstick) 132 mg/dL (70-99) H 306 mg/dL (70-99) H 85 mg/dL (70-99) 257 mg/dL (70-99) H Current Medications: Meds: Current Medications Carvedilol (Coreg) 6.25 mg BIDWMEALS PO Last administered on 05/27/18at 17:13; Start 05/25/18 at 17:00 Multi-Ingredient Ointment (Analgesic [place]) 1 [place] PRN QID PRN TP MUSCLE PAIN; Start 05/25/18 at 11:45 Aspirin (Children'S Aspirin) 81 mg DAILYWBKFT PO Last administered on at 07:32; Start 05/26/18 at 08:00 Vitamin D (Vitamin D3) 2,000 unit DAILY PO Last administered on 05/27/18at 07:31 ; Start 05/26/18 at 09:00 Docusate Sodium (Colace) 100 mg DAILY PO Last administered on 05/27/18at 07:32; Start 05/26/18 at 09:00 Levetiracetam (Keppra) 500 mg BID PO Last administered on 05/27/18at 19:43; Start 05/25/18 at 21:00 Magnesium Hydroxide (Milk Of Magnesia) 2,400 mg PRN QHS PRN PO CONSTIPATION; Start 05/25/18 at 12:45 Magnesium Oxide (Magnesium Oxide) 400 mg DAILY PO Last administered on 07:32; Start 05/26/18 at 09:00 Multivit/ Folic Acid/Iron (Multivitamin ) 1 tab DAILYBFRSUP PO Last administered on 05/27/18 17:12; Start 05/25/18 at 17:00 Gabapentin (Neurontin) 100 mg BID PO Last administered on 05/27/18 19:43; Start 05/25/18 at 21:00 Insulin Glargine (Lantus) 8 units QHS SQ Last administered on 05/27/18 20:22; Start 05/25/18 at 21:00 Amlodipine Besylate (Norvasc) 10 mg QHS PO Last administered on 05/27/18 20:09 ; Start 05/25/18 at 21:00 Citalopram Hydrobromide (CeleXA) 10 mg DAILY PO Last administered on 05/27/18 07:32; Start 05/26/18 at 09:00 Glucagon (Glucagen Kit) 1 mg PRN DAILY PRN IM HYPOGLYCEMIA; Start 05/25/18 at 12:45 Insulin Human Lispro (HumaLOG) IF FSBS = , Then Gi... TIDAFTMEAL SQ Last administered on 05/27/18 12:05; Start 05/25/18 at 13:00 Levothyroxine Sodium (Synthroid) 125 mcg DAILY06 PO Last administered on 05:20; Start 05/26/18 at 06:00 Melatonin 6 mg QHS PO Last administered on 05/27/18 20:10; Start 05/25/18 at 21:00 Memantine (Namenda) 10 mg BID PO Last administered on 05/27/18 19:43; Start at 09:00 Polyethylene Glycol (miraLAX) 17 gm DAILY PO Last administered on 05/27/18 07: 31; Start 05/26/18 at 09:00 Calcium/Vitamin D (Oscal D 500mg/ 200uts) 1 tab DAILY PO Last administered on 07:32; Start 05/26/18 at 09:00 Olanzapine (ZyPREXA ZYDIS) 2.5 mg Q2HR PRN PO PSYCHOSIS/AGITATION Last administered on 3/23/19at 08:13; Start 05/25/18 at 13:00 Donepezil HCl (Aricept) 5 mg BID PO Last administered on 05/27/18at 19:43; Start 05/25/18 at 21:00 Acetaminophen (Tylenol) 650 mg PRN Q6HRS PRN PO PAIN / TEMP; Start 05/26/18 at 02:30 Al Hydroxide/Mg Hydroxide (Mylanta Plus Xs) 15 ml PRN AFTMEALHC PRN PO DYSPEPSIA; Start 05/26/18 at 02:30 Magnesium Hydroxide (Milk Of Magnesia) 2,400 mg PRN QHS PRN PO CONSTIPATION; Start 05/26/18 at 02:30 Buspirone HCl (Buspar) 5 mg BID PO Last administered on 05/27/18at 19:43; Start 05/27/18 at 09:00 Active Scripts Active Reported Novolog Flexpen (Insulin Aspart) 100 Unit/1 Ml Insuln.pen 4-10 Unit SQ TIDAFTMEAL Namzaric 28 mg-10 mg Capsule (Memantine HCl/Donepezil HCl) 1 Each Cap.spr.24 1 Each PO QHS Miralax (Polyethylene Glycol 3350) 17 Gm Powd.pack 17 Gm PO DAILY Melatonin 3 Mg Tablet 5 Mg PO QHS Lantus Solostar (Insulin Glargine,Hum.rec.anlog) 100 Unit/1 Ml Insuln.pen 8 Unit SQ QHS Glucagon Emergency Kit (Glucagon,Human Recombinant) 1 Mg Kit 1 Mg IM PRN Neurontin (Gabapentin) 100 Mg Capsule 100 Mg PO BID Calcium + Vitamin D Tablet (Calcium Carbonate/Vitamin D3) 1 Each Tablet Unknown Dose PO DAILY Surfak (Docusate Calcium) 240 Mg Capsule 240 Mg PO DAILY Formula ( Vit W-Ca,Fe,FA(<1 mg)) 1 Each Tablet 1 Each PO DAILYBFRSUP Analgesic [place] (Methyl Salicylate/Menthol) 29 Gm Oint...g. 1 [place] TP PRN QID PRN Magnesium Oxide 400 Mg Tablet 1 Tab PO DAILY Milk Of Magnesia (Magnesium Hydroxide) 2,400 Mg/10 Ml Oral.susp 2,400 Mg PO PRN QHS PRN Escitalopram Oxalate 10 Mg Tablet 5 Mg PO DAILY Levothyroxine Sodium 125 Mcg Tablet 125 Mcg PO DAILY06 Levetiracetam 500 Mg Tablet 500 Mg PO BID Vitamin D (Cholecalciferol (Vitamin D3)) 2,000 Unit Capsule 2,000 Unit PO DAILY Carvedilol (Carvedilol) 6.25 Mg Tablet 1 Tab PO BIDWMEALS Aspirin 81 Mg Tab.chew 81 Mg PO DAILY Amlodipine Besylate 10 Mg Tablet 10 Mg PO QHS I have reviewed the current psychotropics carefully including drug interactions. Risk benefit ratio favors no change other than as noted in my dictated progress note. Diagnosis: Problems: (1) Anxiety disorder (2) Impulse control disorder (3) Dementia, vascular, with delusions (4) Dementia, vascular, with depression (5) Dementia in Alzheimer's disease with delusions (6) Dementia in Alzheimer's disease with depression (7) Dementia without behavioral disturbance (8) Lactic acidosis (9) Anemia (10) Generalized weakness (11) Dementia (12) Hyperglycemia (13) Renal insufficiency (14) Hypotension (15) Suicidal ideation (16) Elevated lactic acid level VÍCTOR DECKER MD May 27, 2018 23:31
[2018-05-28] MEDS: LEVOTHYROXINE 125 MCG TABLET PO SCH (06:00)
[2018-05-28 06:14] VITALS: BP 113/54
[2018-05-28] MEDS: DONEPEZIL HCL 5 MG TABLET. PO SCH ×2 (07:44→19:34)
[2018-05-28] MEDS: busPIRone 5 MG TABLET. PO SCH ×2 (07:44→19:34)
[2018-05-28] MEDS: POLYETHYLENE GLYCOL 3350 17 GM PACKET. PO SCH (07:44)
[2018-05-28] MEDS: PRENATAL MULTIVITAMIN TABLET. PO SCH (07:44)
[2018-05-28] MEDS: levETIRAcetam 500 MG TABLET PO SCH ×2 (07:45→19:34)
[2018-05-28] MEDS: CALCIUM CARB/VIT D3 500/200 TABLET PO SCH (07:45)
[2018-05-28] MEDS: DOCUSATE SODIUM 100 MG CAPSULE PO SCH (07:45)
[2018-05-28] MEDS: MAGNESIUM OXIDE 400 MG TABLET PO SCH (07:45)
[2018-05-28] MEDS: MEMANTINE 10 MG TABLET. PO SCH ×2 (07:45→19:34)
[2018-05-28] MEDS: CITALOPRAM 10 MG TABLET. PO SCH (07:45)
[2018-05-28] MEDS: CHOLECALCIFEROL (VITAMIN D3) 1,000 UNIT TABLET PO SCH (07:45)
[2018-05-28] MEDS: ASPIRIN 81 MG TAB.CHEW PO SCH (07:45)
[2018-05-28] MEDS: CARVEDILOL 6.25 MG TABLET PO SCH ×2 (07:46→17:16)
[2018-05-28] MEDS: GABAPENTIN 100 MG CAPSULE. PO SCH ×2 (07:48→19:34)
[2018-05-28] MEDS: INSULIN LISPRO 300 UNITS/3 ML INSULN.PEN. SQ SCH ×3 (07:50→17:15)
[2018-05-28 08:41] LABS: BACTERIA,URINE MOD /HPF (0-FEW); BILIRUBIN,URINE NEG (NEG); CLARITY,URINE HAZY; COLOR,URINE YELLOW; GLUCOSE,URINE NEG (NEG); NITRITE,URINE NEG (NEG); SQUAMOUS EPITHELIAL CELL,UR OCC /LPF; UROBILINOGEN,URINE 0.2 mg/dL (0.2 mg/dL)
--- NOTE | 2018-05-28 12:50 | HP ---
ADMIT DATE: 05/25/2018 PSYCHIATRIC PROGRESS NOTE This late entry 05/25/2018, covers elements not covered in my initial note. SUBJECTIVE: I met with the patient evening of 05/25/2018. Discussed with nursing staff, reviewed the chart, previously discussed with Ayde De Jesus, marketing coordinator and reviewed information from [facility], prompting this referral. IDENTIFYING DATA: The patient is an 87-year-old female referred to us from [facility] by Dr. Milan Medina, her primary care physician, on account of increased agitation, aggression, being combative with staff, delusional. She thinks the EMS is taking people from the facility "to kill them." She is attempting to transfer by herself, has a fall risk. Refusing to talk to the ER staff. Behaviors have been unmanageable, dangerous, out of control within the context of her significant dementia. The patient is referred for inpatient psychiatric stabilization. CHIEF COMPLAINT: "No." The patient is quite confused, but otherwise pleasant, smiling at her wheelchair. HISTORY OF PRESENT ILLNESS: The patient has a history of dementia, Alzheimer's and vascular type. She has been residing at [facility] for some time and recently is getting increasingly agitated, restless. She has had some sleep and appetite changes, marked anxiety, impulsiveness and worsening confusion. No clear history of bipolar disorder, suicidal or homicidal ideation. PAST PSYCHIATRIC HISTORY: As above. MEDICAL HISTORY: Positive for anemia, hypothyroidism, diabetes mellitus, seizure disorder, hypertension, chronic constipation, chronic kidney disease, vitamin D deficiency. and at bedtime. ACCU-CHEKS: Before meals and at bedtime. DIET: Mechanical soft. UA on 05/24/2018 was negative. CODE STATUS: DNR. ALLERGIES: DICLOFENAC AND OXYCODONE. CURRENT PSYCHOTROPICS: Celexa 10 mg a day, Zyprexa p.r.n. FAMILY HISTORY: Noncontributory. SOCIAL HISTORY: No history of alcohol, drug abuse, physical, sexual or elder abuse history is noted. She is not known to be a perpetrator. REACTION TO HOSPITALIZATION: The patient accepting of it. ASSETS[facility] IMPRESSION: Major neurocognitive disorder, Alzheimer, vascular with delusion, depression, behavioral disturbance; anxiety disorder, unspecified; impulse control disorder, unspecified. Rest as above. PLAN: Admit to the Geropsychiatry Unit at [facility]. I will see the patient daily individually from a psychiatric standpoint, medical followup with Dr. Bro. Continue the patient on her current psychotropics, observe baseline, then adjust as clinically indicated. Estimated length of stay 10-12 days. DISPOSITION: Back to [facility] when stable. MAN Calvin DECKER MD DR: ANDRAE/leonela JOB#: [id number] / [id number]
[2018-05-28 17:05] VITALS: BP 173/90
[2018-05-28] MEDS: MELATONIN 3 MG TABLET PO SCH (19:34)
[2018-05-28] MEDS: amLODIPine BESYLATE 10 MG TABLET PO SCH (19:39)
[2018-05-28] MEDS: INSULIN GLARGINE 300 UNITS/3 ML INSULN.PEN. SQ SCH (19:41)
--- NOTE | 2018-05-28 20:21 | PN ---
DATE: 05/26/2018 PSYCHIATRIC PROGRESS NOTE This late entry 05/26/2018 covers elements not covered in my initial note. SUBJECTIVE: I met with the patient in the evening. The patient remains confused, somewhat paranoid, thinks staff are trying to hurt her, took her meds in yogurt, spit them out later, anxious. REVIEW OF SYSTEMS: Ambulation impaired, in wheelchair. No CV, , pulmonary, eye, ENT system symptoms on review. Reliability poor. MENTAL STATUS EXAM: Oriented to herself. Insight, judgment, recent and remote memory, attention, concentration, fund of knowledge poor, consistent with her diagnosis mentioned in my initial note. PLAN: No change from initial note, but we will start BuSpar 5 mg 9:00 a.m., 5:00 p.m. Rest unchanged. MAN MFaizan DECKER MD DR: ANDRAE/leonela JOB#: [id number] / [id number]
--- NOTE | 2018-05-28 20:22 | PN ---
DATE: 05/27/2018 PSYCHIATRIC PROGRESS NOTE This late entry 05/27/2018 covers elements not covered in my initial note. SUBJECTIVE: I met with the patient in the evening. The patient slept 8 hours previous night. She remains confused, resistive to medications, takes meds in hot cocoa. REVIEW OF SYSTEMS: No CV, , pulmonary, eye, ENT system symptoms on review. Ambulation impaired, in wheelchair. MENTAL STATUS EXAM: Oriented to herself. Insight, judgment, recent and remote memory, attention, concentration, fund of knowledge poor, consistent with her diagnosis mentioned in my initial note. PLAN: No change from initial note. MAN Calvin DECKER MD DR: ANDRAE/leonela JOB#: [id number] / [id number]
[2018-05-28] MEDS ORDERED: MIRTAZAPINE 7.5 MG TABLET. PO SCH (21:00)
--- NOTE | 2018-05-28 22:44 | PDOC ---
Exam Note: Miguelito Note: Please also refer to the separate dictated note~for this date of service dictated separately.~Patient seen individually. Discussed the patient with Nursing staff reviewed the chart.~Reviewed interim history and current functioning. Reviewed vital signs,~Labs/ Radiology~and current medications noted below. Continue current treatment with the changes noted in the dictated addendum note Assessment: Vital Signs: Vital Signs Date Time Temp Pulse Resp B/P (MAP) Pulse Ox O2 Delivery O2 Flow Rate FiO2 05/28/18 19:39 99 173/90 05/28/18 17:05 96.9 18 99 05/28/18 06:14 Room Air I&O Intake and Output 05/28/18 07:00 Intake Total 920 ml Balance 920 ml Intake Oral 920 ml Labs: Laboratory Tests Test 05/28/18 07:32 05/28/18 08:13 05/28/18 11:29 05/28/18 16:56 Glucose (Fingerstick) 106 mg/dL (70-99) H 190 mg/dL (70-99) H 241 mg/dL (70-99) H Urine Collection Type Unknown Urine Color Yellow Urine Clarity Hazy Urine pH 6.0 Urine Specific [place] 1.020 Urine Protein Neg (NEG-TRACE) Urine Glucose (UA) Neg mg/dL (NEG) Urine Ketones (Stick) Neg mg/dL (NEG) Urine Blood Small (NEG) Urine Nitrite Neg (NEG) Urine Bilirubin Neg (NEG) Urine Urobilinogen Dipstick 0.2 mg/dL (0.2 mg/dL) Urine Leukocyte Esterase Small (NEG) Urine RBC 1-2 /HPF (0-2) Urine WBC 11-20 /HPF (0-4) Urine Squamous Epithelial Cells Occ /LPF Urine Bacteria Mod /HPF (0-FEW) Test 05/28/18 19:14 Glucose (Fingerstick) 298 mg/dL (70-99) H Current Medications: Meds: Current Medications Carvedilol (Coreg) 6.25 mg BIDWMEALS PO Last administered on 05/28/18at 17:16; Start 05/25/18 at 17:00 Multi-Ingredient Ointment (Analgesic [place]) 1 [place] PRN QID PRN TP MUSCLE PAIN; Start 05/25/18 at 11:45 Aspirin (Children'S Aspirin) 81 mg DAILYWBKFT PO Last administered on 07:45; Start 05/26/18 at 08:00 Vitamin D (Vitamin D3) 2,000 unit DAILY PO Last administered on 05/28/18 07:45 ; Start 05/26/18 at 09:00 Docusate Sodium (Colace) 100 mg DAILY PO Last administered on 05/28/18 07:45; Start 05/26/18 at 09:00 Levetiracetam (Keppra) 500 mg BID PO Last administered on 05/28/18 19:34; Start 05/25/18 at 21:00 Magnesium Hydroxide (Milk Of Magnesia) 2,400 mg PRN QHS PRN PO CONSTIPATION; Start 05/25/18 at 12:45 Magnesium Oxide (Magnesium Oxide) 400 mg DAILY PO Last administered on 07:45; Start 05/26/18 at 09:00 Multivit/ Folic Acid/Iron (Multivitamin ) 1 tab DAILYBFRSUP PO Last administered on 05/28/18 07:44; Start 05/25/18 at 17:00 Gabapentin (Neurontin) 100 mg BID PO Last administered on 05/28/18 19:34; Start 05/25/18 at 21:00 Insulin Glargine (Lantus) 8 units QHS SQ Last administered on 05/28/18 19:41; Start 05/25/18 at 21:00 Amlodipine Besylate (Norvasc) 10 mg QHS PO Last administered on 05/28/18 19:39 ; Start 05/25/18 at 21:00 Citalopram Hydrobromide (CeleXA) 10 mg DAILY PO Last administered on 05/28/18 07:45; Start 05/26/18 at 09:00 Glucagon (Glucagen Kit) 1 mg PRN DAILY PRN IM HYPOGLYCEMIA; Start 05/25/18 at 12:45 Insulin Human Lispro (HumaLOG) IF FSBS = , Then Gi... TIDAFTMEAL SQ Last administered on 05/28/18 17:15; Start 05/25/18 at 13:00 Levothyroxine Sodium (Synthroid) 125 mcg DAILY06 PO Last administered on 05:20; Start 05/26/18 at 06:00 Melatonin 6 mg QHS PO Last administered on 05/28/18 19:34; Start 05/25/18 at 21:00 Memantine (Namenda) 10 mg BID PO Last administered on 05/28/18 19:34; Start at 09:00 Polyethylene Glycol (miraLAX) 17 gm DAILY PO Last administered on 05/28/18 07: 44; Start 05/26/18 at 09:00 Calcium/Vitamin D (Oscal D 500mg/ 200uts) 1 tab DAILY PO Last administered on 07:45; Start 05/26/18 at 09:00 Olanzapine (ZyPREXA ZYDIS) 2.5 mg Q2HR PRN PO PSYCHOSIS/AGITATION Last administered on 05/28/18 22:18; Start 05/25/18 at 13:00 Donepezil HCl (Aricept) 5 mg BID PO Last administered on 05/28/18 19:34; Start 05/25/18 at 21:00 Acetaminophen (Tylenol) 650 mg PRN Q6HRS PRN PO PAIN / TEMP; Start 05/26/18 at 02:30 Al Hydroxide/Mg Hydroxide (Mylanta Plus Xs) 15 ml PRN AFTMEALHC PRN PO DYSPEPSIA; Start 05/26/18 at 02:30 Magnesium Hydroxide (Milk Of Magnesia) 2,400 mg PRN QHS PRN PO CONSTIPATION; Start 05/26/18 at 02:30 Buspirone HCl (Buspar) 5 mg BID PO Last administered on 05/28/18 19:34; Start 05/27/18 at 09:00 Mirtazapine (Remeron) 7.5 mg QHS PO Last administered on 05/28/18 19:34; Start 05/28/18 at 21:00 Active Scripts Active Reported Novolog Flexpen (Insulin Aspart) 100 Unit/1 Ml Insuln.pen 4-10 Unit SQ TIDAFTMEAL Namzaric 28 mg-10 mg Capsule (Memantine HCl/Donepezil HCl) 1 Each Cap.spr.24 1 Each PO QHS Miralax (Polyethylene Glycol 3350) 17 Gm Powd.pack 17 Gm PO DAILY Melatonin 3 Mg Tablet 5 Mg PO QHS Lantus Solostar (Insulin Glargine,Hum.rec.anlog) 100 Unit/1 Ml Insuln.pen 8 Unit SQ QHS Glucagon Emergency Kit (Glucagon,Human Recombinant) 1 Mg Kit 1 Mg IM PRN Neurontin (Gabapentin) 100 Mg Capsule 100 Mg PO BID Calcium + Vitamin D Tablet (Calcium Carbonate/Vitamin D3) 1 Each Tablet Unknown Dose PO DAILY Surfak (Docusate Calcium) 240 Mg Capsule 240 Mg PO DAILY Formula ( Vit W-Ca,Fe,FA(<1 mg)) 1 Each Tablet 1 Each PO DAILYBFRSUP Analgesic [place] (Methyl Salicylate/Menthol) 29 Gm Oint...g. 1 [place] TP PRN QID PRN Magnesium Oxide 400 Mg Tablet 1 Tab PO DAILY Milk Of Magnesia (Magnesium Hydroxide) 2,400 Mg/10 Ml Oral.susp 2,400 Mg PO PRN QHS PRN Escitalopram Oxalate 10 Mg Tablet 5 Mg PO DAILY Levothyroxine Sodium 125 Mcg Tablet 125 Mcg PO DAILY06 Levetiracetam 500 Mg Tablet 500 Mg PO BID Vitamin D (Cholecalciferol (Vitamin D3)) 2,000 Unit Capsule 2,000 Unit PO DAILY Carvedilol (Carvedilol) 6.25 Mg Tablet 1 Tab PO BIDWMEALS Aspirin 81 Mg Tab.chew 81 Mg PO DAILY Amlodipine Besylate 10 Mg Tablet 10 Mg PO QHS I have reviewed the current psychotropics carefully including drug interactions. Risk benefit ratio favors no change other than as noted in my dictated progress note. Diagnosis: Problems: (1) Anxiety disorder (2) Impulse control disorder (3) Dementia, vascular, with delusions (4) Dementia, vascular, with depression (5) Dementia in Alzheimer's disease with delusions (6) Dementia in Alzheimer's disease with depression (7) Dementia without behavioral disturbance (8) Lactic acidosis (9) Anemia (10) Generalized weakness (11) Dementia (12) Hyperglycemia (13) Renal insufficiency (14) Hypotension (15) Suicidal ideation (16) Elevated lactic acid level VÍCTOR DECKER MD May 28, 2018 22:44
[2018-05-29] MEDS: LEVOTHYROXINE 125 MCG TABLET PO SCH (05:47)
[2018-05-29 06:09] VITALS: BP 161/83
[2018-05-29] MEDS: DONEPEZIL HCL 5 MG TABLET. PO SCH ×2 (07:40→19:54)
[2018-05-29] MEDS: busPIRone 5 MG TABLET. PO SCH ×2 (07:40→19:54)
[2018-05-29] MEDS: CITALOPRAM 10 MG TABLET. PO SCH (07:40)
[2018-05-29] MEDS: levETIRAcetam 500 MG TABLET PO SCH ×2 (07:40→19:54)
[2018-05-29] MEDS: MEMANTINE 10 MG TABLET. PO SCH ×2 (07:40→19:54)
[2018-05-29] MEDS: CARVEDILOL 6.25 MG TABLET PO SCH ×2 (07:41→17:09)
[2018-05-29] MEDS: DOCUSATE SODIUM 100 MG CAPSULE PO SCH (07:41)
[2018-05-29] MEDS: CALCIUM CARB/VIT D3 500/200 TABLET PO SCH (07:41)
[2018-05-29] MEDS: ASPIRIN 81 MG TAB.CHEW PO SCH (07:41)
[2018-05-29] MEDS: CHOLECALCIFEROL (VITAMIN D3) 1,000 UNIT TABLET PO SCH (07:41)
[2018-05-29] MEDS: MAGNESIUM OXIDE 400 MG TABLET PO SCH (07:41)
[2018-05-29] MEDS: POLYETHYLENE GLYCOL 3350 17 GM PACKET. PO SCH (07:42)
[2018-05-29] MEDS: GABAPENTIN 100 MG CAPSULE. PO SCH ×2 (07:43→20:02)
[2018-05-29] MEDS: INSULIN LISPRO 300 UNITS/3 ML INSULN.PEN. SQ SCH ×3 (08:13→17:28)
[2018-05-29 16:20] VITALS: BP 123/81
[2018-05-29] MEDS: MAGNESIUM HYDROXIDE 2,400 MG/30 ML ORAL.SUSP. PO PRN (17:06)
[2018-05-29] MEDS: PRENATAL MULTIVITAMIN TABLET. PO SCH (17:09)
[2018-05-29] MEDS: MELATONIN 3 MG TABLET PO SCH (19:54)
[2018-05-29] MEDS: amLODIPine BESYLATE 10 MG TABLET PO SCH (19:54)
[2018-05-29] MEDS: MIRTAZAPINE 15 MG TABLET PO SCH (19:56)
[2018-05-29] MEDS: INSULIN GLARGINE 300 UNITS/3 ML INSULN.PEN. SQ SCH (19:58)
--- NOTE | 2018-05-29 22:06 | PN ---
DATE: 05/28/2018 PSYCHIATRIC PROGRESS NOTE This late entry 05/28/2018 covers elements not covered in my initial note. SUBJECTIVE: I met with the patient in the evening. The patient slept 4-1/2 hours previous night. She gets agitated if people are looking at her, gets anxious, paranoid. REVIEW OF SYSTEMS: Ambulation impaired, in wheelchair. No CV, , pulmonary, eye, ENT system symptoms on review. Reliability poor. MENTAL STATUS EXAM: Oriented to herself. Insight, judgment, recent and remote memory, attention, concentration, fund of knowledge poor, consistent with her diagnosis mentioned in my initial note. PLAN: Start Remeron 7.5 mg p.o. at bedtime to help with insomnia and anxiety. Rest unchanged from initial note. MAN Calvin DECKER MD DR: ANDRAE/leonela JOB#: [id number] / [id number]
--- NOTE | 2018-05-29 22:59 | PDOC ---
Exam Note: Miguelito Note: Please also refer to the separate dictated note~for this date of service dictated separately.~Patient seen individually. Discussed the patient with Nursing staff reviewed the chart.~Reviewed interim history and current functioning. Reviewed vital signs,~Labs/ Radiology~and current medications noted below. Continue current treatment with the changes noted in the dictated addendum note Assessment: Vital Signs: Vital Signs Date Time Temp Pulse Resp B/P (MAP) Pulse Ox O2 Delivery O2 Flow Rate FiO2 05/29/18 19:54 68 123/81 05/29/18 16:20 98.3 16 98 Room Air I&O Intake and Output 05/29/18 07:00 Intake Total 1280 ml Balance 1280 ml Intake Oral 1280 ml Labs: Laboratory Tests Test 05/29/18 07:20 05/29/18 12:04 05/29/18 17:11 05/29/18 19:23 Glucose (Fingerstick) 139 mg/dL (70-99) H 234 mg/dL (70-99) H 134 mg/dL (70-99) H 218 mg/dL (70-99) H Current Medications: Meds: Current Medications Carvedilol (Coreg) 6.25 mg BIDWMEALS PO Last administered on 05/29/18 17:09; Start 05/25/18 at 17:00 Multi-Ingredient Ointment (Analgesic [place]) 1 [place] PRN QID PRN TP MUSCLE PAIN; Start 05/25/18 at 11:45 Aspirin (Children'S Aspirin) 81 mg DAILYWBKFT PO Last administered on at 07:41; Start 05/26/18 at 08:00 Vitamin D (Vitamin D3) 2,000 unit DAILY PO Last administered on 05/29/18at 07:41 ; Start 05/26/18 at 09:00 Docusate Sodium (Colace) 100 mg DAILY PO Last administered on 05/29/18 07:41; Start 05/26/18 at 09:00 Levetiracetam (Keppra) 500 mg BID PO Last administered on 05/29/18at 19:54; Start 05/25/18 at 21:00 Magnesium Hydroxide (Milk Of Magnesia) 2,400 mg PRN QHS PRN PO CONSTIPATION Last administered on 05/29/18at 17:06; Start 05/25/18 at 12:45 Magnesium Oxide (Magnesium Oxide) 400 mg DAILY PO Last administered on 07:41; Start 05/26/18 at 09:00 Multivit/ Folic Acid/Iron (Multivitamin ) 1 tab DAILYBFRSUP PO Last administered on 05/29/18 17:09; Start 05/25/18 at 17:00 Gabapentin (Neurontin) 100 mg BID PO Last administered on 05/29/18 20:02; Start 05/25/18 at 21:00 Insulin Glargine (Lantus) 8 units QHS SQ Last administered on 05/29/18 19:58; Start 05/25/18 at 21:00 Amlodipine Besylate (Norvasc) 10 mg QHS PO Last administered on 05/29/18 19:54 ; Start 05/25/18 at 21:00 Citalopram Hydrobromide (CeleXA) 10 mg DAILY PO Last administered on 05/29/18 07:40; Start 05/26/18 at 09:00 Glucagon (Glucagen Kit) 1 mg PRN DAILY PRN IM HYPOGLYCEMIA; Start 05/25/18 at 12:45 Insulin Human Lispro (HumaLOG) IF FSBS = , Then Gi... TIDAFTMEAL SQ Last administered on 05/29/18 12:52; Start 05/25/18 at 13:00 Levothyroxine Sodium (Synthroid) 125 mcg DAILY06 PO Last administered on 05:47; Start 05/26/18 at 06:00 Melatonin 6 mg QHS PO Last administered on 05/29/18 19:54; Start 05/25/18 at 21:00 Memantine (Namenda) 10 mg BID PO Last administered on 05/29/18 19:54; Start at 09:00 Polyethylene Glycol (miraLAX) 17 gm DAILY PO Last administered on 05/29/18 07: 42; Start 05/26/18 at 09:00 Calcium/Vitamin D (Oscal D 500mg/ 200uts) 1 tab DAILY PO Last administered on 07:41; Start 05/26/18 at 09:00 Olanzapine (ZyPREXA ZYDIS) 2.5 mg Q2HR PRN PO PSYCHOSIS/AGITATION Last administered on 05/29/18 19:56; Start 05/25/18 at 13:00 Donepezil HCl (Aricept) 5 mg BID PO Last administered on 05/29/18at 19:54; Start 05/25/18 at 21:00 Acetaminophen (Tylenol) 650 mg PRN Q6HRS PRN PO PAIN / TEMP; Start 05/26/18 at 02:30 Al Hydroxide/Mg Hydroxide (Mylanta Plus Xs) 15 ml PRN AFTMEALHC PRN PO DYSPEPSIA; Start 05/26/18 at 02:30 Magnesium Hydroxide (Milk Of Magnesia) 2,400 mg PRN QHS PRN PO CONSTIPATION; Start 05/26/18 at 02:30 Buspirone HCl (Buspar) 5 mg BID PO Last administered on 05/29/18at 19:54; Start 05/27/18 at 09:00 Mirtazapine (Remeron) 7.5 mg QHS PO Last administered on 05/28/18at 19:34; Start 05/28/18 at 21:00; Stop 05/29/18 at 17:06; Status DC Mirtazapine (Remeron) 15 mg QHS PO Last administered on 05/29/18at 19:56; Start 05/29/18 at 21:00 Active Scripts Active Reported Novolog Flexpen (Insulin Aspart) 100 Unit/1 Ml Insuln.pen 4-10 Unit SQ TIDAFTMEAL Namzaric 28 mg-10 mg Capsule (Memantine HCl/Donepezil HCl) 1 Each Cap.spr.24 1 Each PO QHS Miralax (Polyethylene Glycol 3350) 17 Gm Powd.pack 17 Gm PO DAILY Melatonin 3 Mg Tablet 5 Mg PO QHS Lantus Solostar (Insulin Glargine,Hum.rec.anlog) 100 Unit/1 Ml Insuln.pen 8 Unit SQ QHS Glucagon Emergency Kit (Glucagon,Human Recombinant) 1 Mg Kit 1 Mg IM PRN Neurontin (Gabapentin) 100 Mg Capsule 100 Mg PO BID Calcium + Vitamin D Tablet (Calcium Carbonate/Vitamin D3) 1 Each Tablet Unknown Dose PO DAILY Surfak (Docusate Calcium) 240 Mg Capsule 240 Mg PO DAILY Formula ( Vit W-Ca,Fe,FA(<1 mg)) 1 Each Tablet 1 Each PO DAILYBFRSUP Analgesic [place] (Methyl Salicylate/Menthol) 29 Gm Oint...g. 1 [place] TP PRN QID PRN Magnesium Oxide 400 Mg Tablet 1 Tab PO DAILY Milk Of Magnesia (Magnesium Hydroxide) 2,400 Mg/10 Ml Oral.susp 2,400 Mg PO PRN QHS PRN Escitalopram Oxalate 10 Mg Tablet 5 Mg PO DAILY Levothyroxine Sodium 125 Mcg Tablet 125 Mcg PO DAILY06 Levetiracetam 500 Mg Tablet 500 Mg PO BID Vitamin D (Cholecalciferol (Vitamin D3)) 2,000 Unit Capsule 2,000 Unit PO DAILY Carvedilol (Carvedilol) 6.25 Mg Tablet 1 Tab PO BIDWMEALS Aspirin 81 Mg Tab.chew 81 Mg PO DAILY Amlodipine Besylate 10 Mg Tablet 10 Mg PO QHS I have reviewed the current psychotropics carefully including drug interactions. Risk benefit ratio favors no change other than as noted in my dictated progress note. Diagnosis: Problems: (1) Anxiety disorder (2) Impulse control disorder (3) Dementia, vascular, with delusions (4) Dementia, vascular, with depression (5) Dementia in Alzheimer's disease with delusions (6) Dementia in Alzheimer's disease with depression (7) Dementia without behavioral disturbance (8) Lactic acidosis (9) Anemia (10) Generalized weakness (11) Dementia (12) Hyperglycemia (13) Renal insufficiency (14) Hypotension (15) Suicidal ideation (16) Elevated lactic acid level VÍCTOR DECKER MD May 29, 2018 22:59
[2018-05-30] MEDS: LEVOTHYROXINE 125 MCG TABLET PO SCH (06:04)
[2018-05-30 06:05] VITALS: BP 149/71
[2018-05-30] MEDS: DOCUSATE SODIUM 100 MG CAPSULE PO SCH (07:51)
[2018-05-30] MEDS: busPIRone 5 MG TABLET. PO SCH ×2 (07:51→20:15)
[2018-05-30] MEDS: POLYETHYLENE GLYCOL 3350 17 GM PACKET. PO SCH (07:51)
[2018-05-30] MEDS: ASPIRIN 81 MG TAB.CHEW PO SCH (07:52)
[2018-05-30] MEDS: CHOLECALCIFEROL (VITAMIN D3) 1,000 UNIT TABLET PO SCH (07:52)
[2018-05-30] MEDS: levETIRAcetam 500 MG TABLET PO SCH ×2 (07:52→20:16)
[2018-05-30] MEDS: MEMANTINE 10 MG TABLET. PO SCH ×2 (07:52→20:17)
[2018-05-30] MEDS: MAGNESIUM OXIDE 400 MG TABLET PO SCH (07:52)
[2018-05-30] MEDS: DONEPEZIL HCL 5 MG TABLET. PO SCH ×2 (07:53→20:15)
[2018-05-30] MEDS: CITALOPRAM 10 MG TABLET. PO SCH (07:53)
[2018-05-30] MEDS: CARVEDILOL 6.25 MG TABLET PO SCH ×2 (07:53→17:08)
[2018-05-30] MEDS: CALCIUM CARB/VIT D3 500/200 TABLET PO SCH (07:53)
[2018-05-30] MEDS: INSULIN LISPRO 300 UNITS/3 ML INSULN.PEN. SQ SCH ×3 (07:54→17:08)
[2018-05-30] MEDS: GABAPENTIN 100 MG CAPSULE. PO SCH ×2 (07:55→20:14)
[2018-05-30 16:05] VITALS: BP 129/73
[2018-05-30] MEDS: PRENATAL MULTIVITAMIN TABLET. PO SCH (17:08)
[2018-05-30] MEDS: MAGNESIUM HYDROXIDE 2,400 MG/30 ML ORAL.SUSP. PO PRN (17:09)
[2018-05-30] MEDS: MELATONIN 3 MG TABLET PO SCH (20:15)
[2018-05-30] MEDS: MIRTAZAPINE 15 MG TABLET PO SCH (20:16)
[2018-05-30] MEDS: amLODIPine BESYLATE 10 MG TABLET PO SCH (20:16)
[2018-05-30] MEDS: INSULIN GLARGINE 300 UNITS/3 ML INSULN.PEN. SQ SCH (20:23)
--- NOTE | 2018-05-30 21:07 | PN ---
DATE: 05/29/2018 This is a late entry 05/29/2018 covers elements not covered in my initial note. SUBJECTIVE: I met with the patient in the evening. The patient slept 5 hours previous night. Takes her meds, hidden in pudding, drowsy at times, delusional, previous night that people were in her home "you guys are in my house." She received Zyprexa at 12:30 p.m. Urine culture and sensitivity is pending. REVIEW OF SYSTEM: No CV, , pulmonary, eye system symptoms on review. Gait unsteady with wheelchair. Reliability poor. MENTAL STATUS EXAM: Oriented to herself. Insight, judgment, recent and remote memory, attention, concentration, fund of knowledge poor, consistent with her diagnosis mentioned in my initial note. PLAN: Increase Remeron from 7.5 to 15 mg at bedtime. Rest unchanged. Treat the UTI per Dr. Bro once sensitivity received. VÍCTOR DCEKER MD DR: ANDRAE/leonela JOB#: [id number] / [id number]
--- NOTE | 2018-05-30 23:03 | PDOC ---
Exam Note: Miguelito Note: Please also refer to the separate dictated note~for this date of service dictated separately.~Patient seen individually. Discussed the patient with Nursing staff reviewed the chart.~Reviewed interim history and current functioning. Reviewed vital signs,~Labs/ Radiology~and current medications noted below. Continue current treatment with the changes noted in the dictated addendum note Assessment: Vital Signs: Vital Signs Date Time Temp Pulse Resp B/P (MAP) Pulse Ox O2 Delivery O2 Flow Rate FiO2 05/30/18 20:16 60 129/73 05/30/18 16:05 97.2 18 99 Room Air I&O Intake and Output 05/30/18 06:59 Intake Total 900 ml Balance 900 ml Intake Oral 900 ml Labs: Laboratory Tests Test 05/30/18 07:17 05/30/18 11:37 05/30/18 16:42 05/30/18 19:31 Glucose (Fingerstick) 95 mg/dL (70-99) 244 mg/dL (70-99) H 125 mg/dL (70-99) H 246 mg/dL (70-99) H Current Medications: Meds: Current Medications Carvedilol (Coreg) 6.25 mg BIDWMEALS PO Last administered on 05/30/18at 17:08; Start 05/25/18 at 17:00 Multi-Ingredient Ointment (Analgesic [place]) 1 [place] PRN QID PRN TP MUSCLE PAIN; Start 05/25/18 at 11:45 Aspirin (Children'S Aspirin) 81 mg DAILYWBKFT PO Last administered on at 07:52; Start 05/26/18 at 08:00 Vitamin D (Vitamin D3) 2,000 unit DAILY PO Last administered on 05/30/18at 07:52 ; Start 05/26/18 at 09:00 Docusate Sodium (Colace) 100 mg DAILY PO Last administered on 05/30/18at 07:51; Start 05/26/18 at 09:00 Levetiracetam (Keppra) 500 mg BID PO Last administered on 05/30/18at 20:16; Start 05/25/18 at 21:00 Magnesium Hydroxide (Milk Of Magnesia) 2,400 mg PRN QHS PRN PO CONSTIPATION Last administered on 05/30/18at 17:09; Start 05/25/18 at 12:45 Magnesium Oxide (Magnesium Oxide) 400 mg DAILY PO Last administered on 07:52; Start 05/26/18 at 09:00 Multivit/ Folic Acid/Iron (Multivitamin ) 1 tab DAILYBFRSUP PO Last administered on 05/30/18 17:08; Start 05/25/18 at 17:00 Gabapentin (Neurontin) 100 mg BID PO Last administered on 05/30/18 20:14; Start 05/25/18 at 21:00 Insulin Glargine (Lantus) 8 units QHS SQ Last administered on 05/30/18 20:23; Start 05/25/18 at 21:00 Amlodipine Besylate (Norvasc) 10 mg QHS PO Last administered on 05/30/18 20:16 ; Start 05/25/18 at 21:00 Citalopram Hydrobromide (CeleXA) 10 mg DAILY PO Last administered on 05/30/18 07:53; Start 05/26/18 at 09:00 Glucagon (Glucagen Kit) 1 mg PRN DAILY PRN IM HYPOGLYCEMIA; Start 05/25/18 at 12:45 Insulin Human Lispro (HumaLOG) IF FSBS = , Then Gi... TIDAFTMEAL SQ Last administered on 05/30/18 13:02; Start 05/25/18 at 13:00 Levothyroxine Sodium (Synthroid) 125 mcg DAILY06 PO Last administered on 06:04; Start 05/26/18 at 06:00 Melatonin 6 mg QHS PO Last administered on 05/30/18 20:15; Start 05/25/18 at 21:00 Memantine (Namenda) 10 mg BID PO Last administered on 05/30/18 20:17; Start at 09:00 Polyethylene Glycol (miraLAX) 17 gm DAILY PO Last administered on 05/30/18 07: 51; Start 05/26/18 at 09:00 Calcium/Vitamin D (Oscal D 500mg/ 200uts) 1 tab DAILY PO Last administered on 07:53; Start 05/26/18 at 09:00 Olanzapine (ZyPREXA ZYDIS) 2.5 mg Q2HR PRN PO PSYCHOSIS/AGITATION Last administered on 3/27/19at 07:53; Start 05/25/18 at 13:00 Donepezil HCl (Aricept) 5 mg BID PO Last administered on 05/30/18at 20:15; Start 05/25/18 at 21:00 Acetaminophen (Tylenol) 650 mg PRN Q6HRS PRN PO PAIN / TEMP; Start 05/26/18 at 02:30 Al Hydroxide/Mg Hydroxide (Mylanta Plus Xs) 15 ml PRN AFTMEALHC PRN PO DYSPEPSIA; Start 05/26/18 at 02:30 Magnesium Hydroxide (Milk Of Magnesia) 2,400 mg PRN QHS PRN PO CONSTIPATION; Start 05/26/18 at 02:30 Buspirone HCl (Buspar) 5 mg BID PO Last administered on 05/30/18at 20:15; Start 05/27/18 at 09:00 Mirtazapine (Remeron) 7.5 mg QHS PO Last administered on 05/28/18 19:34; Start 05/28/18 at 21:00; Stop 05/29/18 at 17:06; Status DC Mirtazapine (Remeron) 15 mg QHS PO Last administered on 05/30/18at 20:16; Start 05/29/18 at 21:00 Quetiapine Fumarate (SEROquel) 12.5 mg 0900,1700 PO ; Start 05/31/18 at 09:00 Active Scripts Active Reported Novolog Flexpen (Insulin Aspart) 100 Unit/1 Ml Insuln.pen 4-10 Unit SQ TIDAFTMEAL Namzaric 28 mg-10 mg Capsule (Memantine HCl/Donepezil HCl) 1 Each Cap.spr.24 1 Each PO QHS Miralax (Polyethylene Glycol 3350) 17 Gm Powd.pack 17 Gm PO DAILY Melatonin 3 Mg Tablet 5 Mg PO QHS Lantus Solostar (Insulin Glargine,Hum.rec.anlog) 100 Unit/1 Ml Insuln.pen 8 Unit SQ QHS Glucagon Emergency Kit (Glucagon,Human Recombinant) 1 Mg Kit 1 Mg IM PRN Neurontin (Gabapentin) 100 Mg Capsule 100 Mg PO BID Calcium + Vitamin D Tablet (Calcium Carbonate/Vitamin D3) 1 Each Tablet Unknown Dose PO DAILY Surfak (Docusate Calcium) 240 Mg Capsule 240 Mg PO DAILY Formula ( Vit W-Ca,Fe,FA(<1 mg)) 1 Each Tablet 1 Each PO DAILYBFRSUP Analgesic [place] (Methyl Salicylate/Menthol) 29 Gm Oint...g. 1 [place] TP PRN QID PRN Magnesium Oxide 400 Mg Tablet 1 Tab PO DAILY Milk Of Magnesia (Magnesium Hydroxide) 2,400 Mg/10 Ml Oral.susp 2,400 Mg PO PRN QHS PRN Escitalopram Oxalate 10 Mg Tablet 5 Mg PO DAILY Levothyroxine Sodium 125 Mcg Tablet 125 Mcg PO DAILY06 Levetiracetam 500 Mg Tablet 500 Mg PO BID Vitamin D (Cholecalciferol (Vitamin D3)) 2,000 Unit Capsule 2,000 Unit PO DAILY Carvedilol (Carvedilol) 6.25 Mg Tablet 1 Tab PO BIDWMEALS Aspirin 81 Mg Tab.chew 81 Mg PO DAILY Amlodipine Besylate 10 Mg Tablet 10 Mg PO QHS I have reviewed the current psychotropics carefully including drug interactions. Risk benefit ratio favors no change other than as noted in my dictated progress note. Diagnosis: Problems: (1) Anxiety disorder (2) Impulse control disorder (3) Dementia, vascular, with delusions (4) Dementia, vascular, with depression (5) Dementia in Alzheimer's disease with delusions (6) Dementia in Alzheimer's disease with depression (7) Dementia without behavioral disturbance (8) Lactic acidosis (9) Anemia (10) Generalized weakness (11) Dementia (12) Hyperglycemia (13) Renal insufficiency (14) Hypotension (15) Suicidal ideation (16) Elevated lactic acid level VÍCTOR DECKER MD May 30, 2018 23:03
[2018-05-31 05:45] VITALS: BP 121/77
[2018-05-31] MEDS: LEVOTHYROXINE 125 MCG TABLET PO SCH (06:01)
[2018-05-31] MEDS: ASPIRIN 81 MG TAB.CHEW PO SCH (08:07)
[2018-05-31] MEDS: CALCIUM CARB/VIT D3 500/200 TABLET PO SCH (08:07)
[2018-05-31] MEDS: DOCUSATE SODIUM 100 MG CAPSULE PO SCH (08:07)
[2018-05-31] MEDS: levETIRAcetam 500 MG TABLET PO SCH ×2 (08:07→19:31)
[2018-05-31] MEDS: DONEPEZIL HCL 5 MG TABLET. PO SCH ×2 (08:07→19:30)
[2018-05-31] MEDS: POLYETHYLENE GLYCOL 3350 17 GM PACKET. PO SCH (08:07)
[2018-05-31] MEDS: CITALOPRAM 10 MG TABLET. PO SCH (08:07)
[2018-05-31] MEDS: MAGNESIUM OXIDE 400 MG TABLET PO SCH (08:07)
[2018-05-31] MEDS: CHOLECALCIFEROL (VITAMIN D3) 1,000 UNIT TABLET PO SCH (08:07)
[2018-05-31] MEDS: busPIRone 5 MG TABLET. PO SCH ×2 (08:07→19:31)
[2018-05-31] MEDS: INSULIN LISPRO 300 UNITS/3 ML INSULN.PEN. SQ SCH ×3 (08:08→17:21)
[2018-05-31] MEDS: CARVEDILOL 6.25 MG TABLET PO SCH ×2 (08:08→17:20)
[2018-05-31] MEDS: MEMANTINE 10 MG TABLET. PO SCH ×2 (08:08→19:31)
[2018-05-31] MEDS: GABAPENTIN 100 MG CAPSULE. PO SCH ×2 (08:10→19:33)
[2018-05-31] MEDS: QUEtiapine 25 MG TABLET. PO SCH ×3 (08:10→19:35)
[2018-05-31 16:17] VITALS: BP 133/69
[2018-05-31] MEDS: PRENATAL MULTIVITAMIN TABLET. PO SCH (17:19)
[2018-05-31] MEDS: MELATONIN 3 MG TABLET PO SCH (19:30)
[2018-05-31] MEDS: amLODIPine BESYLATE 10 MG TABLET PO SCH (19:31)
[2018-05-31] MEDS: MIRTAZAPINE 15 MG TABLET PO SCH (19:31)
[2018-05-31] MEDS: INSULIN GLARGINE 300 UNITS/3 ML INSULN.PEN. SQ SCH (19:34)
--- NOTE | 2018-05-31 22:38 | PDOC ---
Exam Note: Miguelito Note: Please also refer to the separate dictated note~for this date of service dictated separately.~Patient seen individually. Discussed the patient with Nursing staff reviewed the chart.~Reviewed interim history and current functioning. Reviewed vital signs,~Labs/ Radiology~and current medications noted below. Continue current treatment with the changes noted in the dictated addendum note Assessment: Vital Signs: Vital Signs Date Time Temp Pulse Resp B/P (MAP) Pulse Ox O2 Delivery O2 Flow Rate FiO2 05/31/18 19:31 60 133/69 05/31/18 16:17 97.3 16 99 Room Air I&O Intake and Output 05/31/18 06:59 Intake Total 1620 ml Balance 1620 ml Intake Oral 1620 ml # Voids 1 Labs: Laboratory Tests Test 05/31/18 07:24 05/31/18 12:17 05/31/18 16:40 05/31/18 19:13 Glucose (Fingerstick) 146 mg/dL (70-99) H 256 mg/dL (70-99) H 161 mg/dL (70-99) H 200 mg/dL (70-99) H Current Medications: Meds: Current Medications Carvedilol (Coreg) 6.25 mg BIDWMEALS PO Last administered on 05/31/18at 17:20; Start 05/25/18 at 17:00 Multi-Ingredient Ointment (Analgesic [place]) 1 [place] PRN QID PRN TP MUSCLE PAIN; Start 05/25/18 at 11:45 Aspirin (Children'S Aspirin) 81 mg DAILYWBKFT PO Last administered on at 08:07; Start 05/26/18 at 08:00 Vitamin D (Vitamin D3) 2,000 unit DAILY PO Last administered on 05/31/18at 08:07 ; Start 05/26/18 at 09:00 Docusate Sodium (Colace) 100 mg DAILY PO Last administered on 05/31/18at 08:07; Start 05/26/18 at 09:00 Levetiracetam (Keppra) 500 mg BID PO Last administered on 05/31/18at 19:31; Start 05/25/18 at 21:00 Magnesium Hydroxide (Milk Of Magnesia) 2,400 mg PRN QHS PRN PO CONSTIPATION Last administered on 05/30/18at 17:09; Start 05/25/18 at 12:45 Magnesium Oxide (Magnesium Oxide) 400 mg DAILY PO Last administered on 08:07; Start 05/26/18 at 09:00 Multivit/ Folic Acid/Iron (Multivitamin ) 1 tab DAILYBFRSUP PO Last administered on 05/31/18 17:19; Start 05/25/18 at 17:00 Gabapentin (Neurontin) 100 mg BID PO Last administered on 05/31/18 19:33; Start 05/25/18 at 21:00 Insulin Glargine (Lantus) 8 units QHS SQ Last administered on 05/31/18 19:34; Start 05/25/18 at 21:00 Amlodipine Besylate (Norvasc) 10 mg QHS PO Last administered on 05/31/18 19:31 ; Start 05/25/18 at 21:00 Citalopram Hydrobromide (CeleXA) 10 mg DAILY PO Last administered on 05/31/18 08:07; Start 05/26/18 at 09:00 Glucagon (Glucagen Kit) 1 mg PRN DAILY PRN IM HYPOGLYCEMIA; Start 05/25/18 at 12:45 Insulin Human Lispro (HumaLOG) IF FSBS = , Then Gi... TIDAFTMEAL SQ Last administered on 05/31/18 12:51; Start 05/25/18 at 13:00 Levothyroxine Sodium (Synthroid) 125 mcg DAILY06 PO Last administered on 06:01; Start 05/26/18 at 06:00 Melatonin 6 mg QHS PO Last administered on 05/31/18 19:30; Start 05/25/18 at 21:00 Memantine (Namenda) 10 mg BID PO Last administered on 05/31/18 19:31; Start at 09:00 Polyethylene Glycol (miraLAX) 17 gm DAILY PO Last administered on 05/31/18 08: 07; Start 05/26/18 at 09:00 Calcium/Vitamin D (Oscal D 500mg/ 200uts) 1 tab DAILY PO Last administered on 08:07; Start 05/26/18 at 09:00 Olanzapine (ZyPREXA ZYDIS) 2.5 mg Q2HR PRN PO PSYCHOSIS/AGITATION Last administered on 05/30/18at 07:53; Start 05/25/18 at 13:00 Donepezil HCl (Aricept) 5 mg BID PO Last administered on 05/31/18at 19:30; Start 05/25/18 at 21:00 Acetaminophen (Tylenol) 650 mg PRN Q6HRS PRN PO PAIN / TEMP; Start 05/26/18 at 02:30 Al Hydroxide/Mg Hydroxide (Mylanta Plus Xs) 15 ml PRN AFTMEALHC PRN PO DYSPEPSIA; Start 05/26/18 at 02:30 Magnesium Hydroxide (Milk Of Magnesia) 2,400 mg PRN QHS PRN PO CONSTIPATION; Start 05/26/18 at 02:30; Stop 05/31/18 at 16:09; Status DC Buspirone HCl (Buspar) 5 mg BID PO Last administered on 05/31/18at 19:31; Start 05/27/18 at 09:00 Mirtazapine (Remeron) 7.5 mg QHS PO Last administered on 05/28/18at 19:34; Start 05/28/18 at 21:00; Stop 05/29/18 at 17:06; Status DC Mirtazapine (Remeron) 15 mg QHS PO Last administered on 05/31/18at 19:31; Start 05/29/18 at 21:00 Quetiapine Fumarate (SEROquel) 12.5 mg 0900,1700 PO Last administered on at 17:19; Start 05/31/18 at 09:00; Stop 05/31/18 at 18:11; Status DC Quetiapine Fumarate (SEROquel) 12.5 mg 0900,1900 PO Last administered on at 19:35; Start 05/31/18 at 19:00 Quetiapine Fumarate (SEROquel) 12.5 mg DAILY@1700 PO ; Start 06/01/18 at 17:00 Active Scripts Active Reported Novolog Flexpen (Insulin Aspart) 100 Unit/1 Ml Insuln.pen 4-10 Unit SQ TIDAFTMEAL Namzaric 28 mg-10 mg Capsule (Memantine HCl/Donepezil HCl) 1 Each Cap.spr.24 1 Each PO QHS Miralax (Polyethylene Glycol 3350) 17 Gm Powd.pack 17 Gm PO DAILY Melatonin 3 Mg Tablet 5 Mg PO QHS Lantus Solostar (Insulin Glargine,Hum.rec.anlog) 100 Unit/1 Ml Insuln.pen 8 Unit SQ QHS Glucagon Emergency Kit (Glucagon,Human Recombinant) 1 Mg Kit 1 Mg IM PRN Neurontin (Gabapentin) 100 Mg Capsule 100 Mg PO BID Calcium + Vitamin D Tablet (Calcium Carbonate/Vitamin D3) 1 Each Tablet Unknown Dose PO DAILY Surfak (Docusate Calcium) 240 Mg Capsule 240 Mg PO DAILY Formula ( Vit W-Ca,Fe,FA(<1 mg)) 1 Each Tablet 1 Each PO DAILYBFRSUP Analgesic [place] (Methyl Salicylate/Menthol) 29 Gm Oint...g. 1 [place] TP PRN QID PRN Magnesium Oxide 400 Mg Tablet 1 Tab PO DAILY Milk Of Magnesia (Magnesium Hydroxide) 2,400 Mg/10 Ml Oral.susp 2,400 Mg PO PRN QHS PRN Escitalopram Oxalate 10 Mg Tablet 5 Mg PO DAILY Levothyroxine Sodium 125 Mcg Tablet 125 Mcg PO DAILY06 Levetiracetam 500 Mg Tablet 500 Mg PO BID Vitamin D (Cholecalciferol (Vitamin D3)) 2,000 Unit Capsule 2,000 Unit PO DAILY Carvedilol (Carvedilol) 6.25 Mg Tablet 1 Tab PO BIDWMEALS Aspirin 81 Mg Tab.chew 81 Mg PO DAILY Amlodipine Besylate 10 Mg Tablet 10 Mg PO QHS I have reviewed the current psychotropics carefully including drug interactions. Risk benefit ratio favors no change other than as noted in my dictated progress note. Diagnosis: Problems: (1) Anxiety disorder (2) Impulse control disorder (3) Dementia, vascular, with delusions (4) Dementia, vascular, with depression (5) Dementia in Alzheimer's disease with delusions (6) Dementia in Alzheimer's disease with depression (7) Dementia without behavioral disturbance (8) Lactic acidosis (9) Anemia (10) Generalized weakness (11) Dementia (12) Hyperglycemia (13) Renal insufficiency (14) Hypotension (15) Suicidal ideation (16) Elevated lactic acid level VÍCTOR DECKER MD May 31, 2018 22:38
[2018-06-01] MEDS: LEVOTHYROXINE 125 MCG TABLET PO SCH (05:54)
[2018-06-01 05:55] VITALS: BP 142/97
[2018-06-01] MEDS: ASPIRIN 81 MG TAB.CHEW PO SCH (07:40)
[2018-06-01] MEDS: busPIRone 5 MG TABLET. PO SCH ×2 (07:40→19:28)
[2018-06-01] MEDS: CHOLECALCIFEROL (VITAMIN D3) 1,000 UNIT TABLET PO SCH (07:40)
[2018-06-01] MEDS: CALCIUM CARB/VIT D3 500/200 TABLET PO SCH (07:40)
[2018-06-01] MEDS: levETIRAcetam 500 MG TABLET PO SCH ×2 (07:40→19:28)
[2018-06-01] MEDS: QUEtiapine 25 MG TABLET. PO SCH ×3 (07:41→18:34)
[2018-06-01] MEDS: CARVEDILOL 6.25 MG TABLET PO SCH ×2 (07:42→17:45)
[2018-06-01] MEDS: MEMANTINE 10 MG TABLET. PO SCH ×2 (07:42→19:28)
[2018-06-01] MEDS: DOCUSATE SODIUM 100 MG CAPSULE PO SCH (07:42)
[2018-06-01] MEDS: CITALOPRAM 10 MG TABLET. PO SCH (07:43)
[2018-06-01] MEDS: MAGNESIUM OXIDE 400 MG TABLET PO SCH (07:43)
[2018-06-01] MEDS: DONEPEZIL HCL 5 MG TABLET. PO SCH ×2 (07:43→19:28)
[2018-06-01] MEDS: POLYETHYLENE GLYCOL 3350 17 GM PACKET. PO SCH (07:43)
[2018-06-01] MEDS: GABAPENTIN 100 MG CAPSULE. PO SCH ×2 (07:45→19:28)
[2018-06-01] MEDS: INSULIN LISPRO 300 UNITS/3 ML INSULN.PEN. SQ SCH ×3 (07:45→17:48)
[2018-06-01 16:00] VITALS: BP 109/69
[2018-06-01] MEDS: PRENATAL MULTIVITAMIN TABLET. PO SCH (17:45)
[2018-06-01] MEDS: MELATONIN 3 MG TABLET PO SCH (19:28)
[2018-06-01] MEDS: amLODIPine BESYLATE 10 MG TABLET PO SCH (19:29)
[2018-06-01] MEDS: MIRTAZAPINE 15 MG TABLET PO SCH (19:29)
[2018-06-01] MEDS: INSULIN GLARGINE 300 UNITS/3 ML INSULN.PEN. SQ SCH (19:30)
--- NOTE | 2018-06-01 21:03 | PN ---
DATE: 05/30/2018 PSYCHIATRIC PROGRESS NOTE This late entry 05/30/2018 covers elements not covered in my initial note. SUBJECTIVE: I met with the patient in the evening. The patient was quite agitated at night, talking to herself, delusional. Seems to be particularly aggressive towards a particular female staff member. Slept 7-1/2 hours. REVIEW OF SYSTEMS: Ambulation impaired, in wheelchair. No CV, , pulmonary, eye, ENT system symptoms on review. Reliability poor. MENTAL STATUS EXAM: Oriented to herself. Insight, judgment, recent and remote memory, attention, concentration, fund of knowledge poor, consistent with her diagnosis mentioned in my initial note. PLAN: No change from initial note. We will start Seroquel 12.5 mg 9 a.m., 5:00 p.m. Rest unchanged. MAN M. MD JERONIMO DR: ANDRAE/leonela JOB#: [id number] / [id number]
--- NOTE | 2018-06-01 21:08 | PN ---
DATE: 05/31/2018 PSYCHIATRIC PROGRESS NOTE This late entry 05/31/2018 covers elements not covered in my initial note. SUBJECTIVE: I met with the patient in the evening, staffed at a treatment team meeting with the entire team in the morning, reviewed her history, diagnosis, disposition plans, and treatment plans. Previous night she was yelling at staff. Appetite 75%, slept 7 hours, compliant at times, delusional, confused, agitated at lunchtime. REVIEW OF SYSTEMS: Ambulation impaired, in walker. No CV, , pulmonary, eye, ENT system symptoms on review. Reliability poor. MENTAL STATUS EXAM: Oriented to herself. Insight, judgment, recent and remote memory, attention, concentration, fund of knowledge poor, consistent with her diagnosis mentioned in my initial note. PLAN: Increase Seroquel from 12.5 mg b.i.d. to 12.5 mg at 0900, 25 mg 1700, 12.5 mg 7 p.m. Rest unchanged per initial note. MAN Calvin DECKER MD DR: ANDRAE/leonela JOB#: [id number] / [id number]
--- NOTE | 2018-06-01 22:33 | PDOC ---
Exam Note: Miguelito Note: Please also refer to the separate dictated note~for this date of service dictated separately.~Patient seen individually. Discussed the patient with Nursing staff reviewed the chart.~Reviewed interim history and current functioning. Reviewed vital signs,~Labs/ Radiology~and current medications noted below. Continue current treatment with the changes noted in the dictated addendum note Assessment: Vital Signs: Vital Signs Date Time Temp Pulse Resp B/P (MAP) Pulse Ox O2 Delivery O2 Flow Rate FiO2 06/01/18 19:29 66 109/69 06/01/18 16:00 97.3 18 98 Room Air I&O Intake and Output 06/01/18 06:59 Intake Total 780 ml Balance 780 ml Intake Oral 780 ml # Voids 1 Labs: Laboratory Tests Test 06/01/18 07:18 06/01/18 11:35 06/01/18 11:37 06/01/18 16:39 Glucose (Fingerstick) 140 mg/dL (70-99) H 215 mg/dL (70-99) H 186 mg/dL (70-99) H 242 mg/dL (70-99) H Test 06/01/18 19:24 Glucose (Fingerstick) 275 mg/dL (70-99) H Current Medications: Meds: Current Medications Carvedilol (Coreg) 6.25 mg BIDWMEALS PO Last administered on 06/01/18at 17:45; Start 05/25/18 at 17:00 Multi-Ingredient Ointment (Analgesic [place]) 1 [place] PRN QID PRN TP MUSCLE PAIN; Start 05/25/18 at 11:45 Aspirin (Children'S Aspirin) 81 mg DAILYWBKFT PO Last administered on at 07:40; Start 05/26/18 at 08:00 Vitamin D (Vitamin D3) 2,000 unit DAILY PO Last administered on 06/01/18at 07:40 ; Start 05/26/18 at 09:00 Docusate Sodium (Colace) 100 mg DAILY PO Last administered on 06/01/18at 07:42; Start 05/26/18 at 09:00 Levetiracetam (Keppra) 500 mg BID PO Last administered on 06/01/18at 19:28; Start 05/25/18 at 21:00 Magnesium Hydroxide (Milk Of Magnesia) 2,400 mg PRN QHS PRN PO CONSTIPATION Last administered on 05/30/18 17:09; Start 05/25/18 at 12:45 Magnesium Oxide (Magnesium Oxide) 400 mg DAILY PO Last administered on 07:43; Start 05/26/18 at 09:00 Multivit/ Folic Acid/Iron (Multivitamin ) 1 tab DAILYBFRSUP PO Last administered on 06/01/18 17:45; Start 05/25/18 at 17:00 Gabapentin (Neurontin) 100 mg BID PO Last administered on 06/01/18 19:28; Start 05/25/18 at 21:00 Insulin Glargine (Lantus) 8 units QHS SQ Last administered on 06/01/18 19:30; Start 05/25/18 at 21:00 Amlodipine Besylate (Norvasc) 10 mg QHS PO Last administered on 06/01/18 19:29 ; Start 05/25/18 at 21:00 Citalopram Hydrobromide (CeleXA) 10 mg DAILY PO Last administered on 06/01/18 07:43; Start 05/26/18 at 09:00 Glucagon (Glucagen Kit) 1 mg PRN DAILY PRN IM HYPOGLYCEMIA; Start 05/25/18 at 12:45 Insulin Human Lispro (HumaLOG) IF FSBS = , Then Gi... TIDAFTMEAL SQ Last administered on 06/01/18 17:48; Start 05/25/18 at 13:00 Levothyroxine Sodium (Synthroid) 125 mcg DAILY06 PO Last administered on 05:54; Start 05/26/18 at 06:00 Melatonin 6 mg QHS PO Last administered on 06/01/18 19:28; Start 05/25/18 at 21:00 Memantine (Namenda) 10 mg BID PO Last administered on 06/01/18 19:28; Start at 09:00 Polyethylene Glycol (miraLAX) 17 gm DAILY PO Last administered on 06/01/18 07: 43; Start 05/26/18 at 09:00 Calcium/Vitamin D (Oscal D 500mg/ 200uts) 1 tab DAILY PO Last administered on 07:40; Start 05/26/18 at 09:00 Olanzapine (ZyPREXA ZYDIS) 2.5 mg Q2HR PRN PO PSYCHOSIS/AGITATION Last administered on 06/01/18 21:51; Start 05/25/18 at 13:00 Donepezil HCl (Aricept) 5 mg BID PO Last administered on 06/01/18 19:28; Start 05/25/18 at 21:00 Acetaminophen (Tylenol) 650 mg PRN Q6HRS PRN PO PAIN / TEMP; Start 05/26/18 at 02:30 Al Hydroxide/Mg Hydroxide (Mylanta Plus Xs) 15 ml PRN AFTMEALHC PRN PO DYSPEPSIA; Start 05/26/18 at 02:30 Magnesium Hydroxide (Milk Of Magnesia) 2,400 mg PRN QHS PRN PO CONSTIPATION; Start 05/26/18 at 02:30; Stop 05/31/18 at 16:09; Status DC Buspirone HCl (Buspar) 5 mg BID PO Last administered on 06/01/18 19:28; Start 05/27/18 at 09:00 Mirtazapine (Remeron) 7.5 mg QHS PO Last administered on 05/28/18 19:34; Start 05/28/18 at 21:00; Stop 05/29/18 at 17:06; Status DC Mirtazapine (Remeron) 15 mg QHS PO Last administered on 06/01/18at 19:29; Start 05/29/18 at 21:00 Quetiapine Fumarate (SEROquel) 12.5 mg 0900,1700 PO Last administered on 17:19; Start 05/31/18 at 09:00; Stop 05/31/18 at 18:11; Status DC Quetiapine Fumarate (SEROquel) 12.5 mg 0900,1900 PO Last administered on 18:34; Start 05/31/18 at 19:00 Quetiapine Fumarate (SEROquel) 12.5 mg DAILY@1700 PO Last administered on 17:46; Start 06/01/18 at 17:00 Active Scripts Active Reported Novolog Flexpen (Insulin Aspart) 100 Unit/1 Ml Insuln.pen 4-10 Unit SQ TIDAFTMEAL Namzaric 28 mg-10 mg Capsule (Memantine HCl/Donepezil HCl) 1 Each Cap.spr.24 1 Each PO QHS Miralax (Polyethylene Glycol 3350) 17 Gm Powd.pack 17 Gm PO DAILY Melatonin 3 Mg Tablet 5 Mg PO QHS Lantus Solostar (Insulin Glargine,Hum.rec.anlog) 100 Unit/1 Ml Insuln.pen 8 Unit SQ QHS Glucagon Emergency Kit (Glucagon,Human Recombinant) 1 Mg Kit 1 Mg IM PRN Neurontin (Gabapentin) 100 Mg Capsule 100 Mg PO BID Calcium + Vitamin D Tablet (Calcium Carbonate/Vitamin D3) 1 Each Tablet Unknown Dose PO DAILY Surfak (Docusate Calcium) 240 Mg Capsule 240 Mg PO DAILY Formula ( Vit W-Ca,Fe,FA(<1 mg)) 1 Each Tablet 1 Each PO DAILYBFRSUP Analgesic [place] (Methyl Salicylate/Menthol) 29 Gm Oint...g. 1 [place] TP PRN QID PRN Magnesium Oxide 400 Mg Tablet 1 Tab PO DAILY Milk Of Magnesia (Magnesium Hydroxide) 2,400 Mg/10 Ml Oral.susp 2,400 Mg PO PRN QHS PRN Escitalopram Oxalate 10 Mg Tablet 5 Mg PO DAILY Levothyroxine Sodium 125 Mcg Tablet 125 Mcg PO DAILY06 Levetiracetam 500 Mg Tablet 500 Mg PO BID Vitamin D (Cholecalciferol (Vitamin D3)) 2,000 Unit Capsule 2,000 Unit PO DAILY Carvedilol (Carvedilol) 6.25 Mg Tablet 1 Tab PO BIDWMEALS Aspirin 81 Mg Tab.chew 81 Mg PO DAILY Amlodipine Besylate 10 Mg Tablet 10 Mg PO QHS I have reviewed the current psychotropics carefully including drug interactions. Risk benefit ratio favors no change other than as noted in my dictated progress note. Diagnosis: Problems: (1) Anxiety disorder (2) Impulse control disorder (3) Dementia, vascular, with delusions (4) Dementia, vascular, with depression (5) Dementia in Alzheimer's disease with delusions (6) Dementia in Alzheimer's disease with depression (7) Dementia without behavioral disturbance (8) Lactic acidosis (9) Anemia (10) Generalized weakness (11) Dementia (12) Hyperglycemia (13) Renal insufficiency (14) Hypotension (15) Suicidal ideation (16) Elevated lactic acid level VÍTCOR DECKER MD Jun 01, 2018 22:33
[2018-06-02 06:03] VITALS: BP 147/69
[2018-06-02] MEDS: LEVOTHYROXINE 125 MCG TABLET PO SCH (06:17)
[2018-06-02] MEDS: INSULIN LISPRO 300 UNITS/3 ML INSULN.PEN. SQ SCH ×3 (08:23→17:05)
[2018-06-02] MEDS: ASPIRIN 81 MG TAB.CHEW PO SCH (08:40)
[2018-06-02] MEDS: GABAPENTIN 100 MG CAPSULE. PO SCH ×2 (08:41→19:27)
[2018-06-02] MEDS: busPIRone 5 MG TABLET. PO SCH ×2 (08:41→19:25)
[2018-06-02] MEDS: levETIRAcetam 500 MG TABLET PO SCH ×2 (08:41→19:26)
[2018-06-02] MEDS: DOCUSATE SODIUM 100 MG CAPSULE PO SCH (08:41)
[2018-06-02] MEDS: POLYETHYLENE GLYCOL 3350 17 GM PACKET. PO SCH (08:41)
[2018-06-02] MEDS: DONEPEZIL HCL 5 MG TABLET. PO SCH ×2 (08:41→19:25)
[2018-06-02] MEDS: MEMANTINE 10 MG TABLET. PO SCH ×2 (08:41→19:26)
[2018-06-02] MEDS: CITALOPRAM 10 MG TABLET. PO SCH (08:41)
[2018-06-02] MEDS: CARVEDILOL 6.25 MG TABLET PO SCH ×2 (08:41→17:04)
[2018-06-02] MEDS: CALCIUM CARB/VIT D3 500/200 TABLET PO SCH (08:42)
[2018-06-02] MEDS: QUEtiapine 25 MG TABLET. PO SCH ×3 (08:42→18:24)
[2018-06-02] MEDS: CHOLECALCIFEROL (VITAMIN D3) 1,000 UNIT TABLET PO SCH (08:42)
[2018-06-02] MEDS: MAGNESIUM OXIDE 400 MG TABLET PO SCH (08:43)
[2018-06-02 10:38] LABS: BASO % 1 % (0-3); EOS # 0.1 x10^3/uL (0.0-0.7); EOS % 2 % (0-3); HEMATOCRIT 34.3 % (36.0-47.0); HEMOGLOBIN 11.8 g/dL (12.0-15.5); LYMPH # 1.2 x10^3/uL (1.0-4.8); LYMPH % 18 % (24-48); MEAN CORPUSCULAR HEMOGLOBIN 33 pg (25-35); MEAN CORPUSCULAR HGB CONC 34 g/dL (31-37); MEAN CORPUSCULAR VOLUME 96 fL (79-100); MONO # 0.5 x10^3/uL (0.0-1.1); MONO % 7 % (0-9); NEUT # 5.2 x10^3uL (1.8-7.7); NEUT % 73 % (31-73); PLATELET COUNT 201 x10^3/uL (140-400); RED BLOOD COUNT 3.59 x10^6/uL (3.50-5.40); RED CELL DISTRIBUTION WIDTH 12.4 % (11.5-14.5); WHITE BLOOD COUNT 7.1 x10^3/uL (4.0-11.0)
[2018-06-02 10:51] LABS: ALBUMIN 3.4 g/dL (3.4-5.0); ALBUMIN/GLOBULIN RATIO 0.9 (1.0-1.7); CALCIUM 9.5 mg/dL (8.5-10.1); CREATININE 1.3 mg/dL (0.6-1.0); GFR 38.9; POTASSIUM 4.6 mmol/L (3.5-5.1); TOTAL BILIRUBIN 0.2 mg/dL (0.2-1.0)
[2018-06-02] MEDS: PRENATAL MULTIVITAMIN TABLET. PO SCH (17:04)
[2018-06-02 17:23] VITALS: BP 135/75
[2018-06-02] MEDS: MIRTAZAPINE 15 MG TABLET PO SCH (19:26)
[2018-06-02] MEDS: MELATONIN 3 MG TABLET PO SCH (19:27)
[2018-06-02] MEDS: amLODIPine BESYLATE 10 MG TABLET PO SCH (19:27)
[2018-06-02] MEDS: CEFDINIR 300 MG CAPSULE PO SCH (19:54)
[2018-06-02] MEDS: INSULIN GLARGINE 300 UNITS/3 ML INSULN.PEN. SQ SCH (19:55)
--- NOTE | 2018-06-02 22:36 | PDOC ---
Exam Note: Miguelito Note: Please also refer to the separate dictated note~for this date of service dictated separately.~Patient seen individually. Discussed the patient with Nursing staff reviewed the chart.~Reviewed interim history and current functioning. Reviewed vital signs,~Labs/ Radiology~and current medications noted below. Continue current treatment with the changes noted in the dictated addendum note Assessment: Vital Signs: Vital Signs Date Time Temp Pulse Resp B/P (MAP) Pulse Ox O2 Delivery O2 Flow Rate FiO2 06/02/18 19:27 60 135/75 06/02/18 17:23 97.4 16 95 06/01/18 16:00 Room Air I&O Intake and Output 06/02/18 07:00 Intake Total 1020 ml Balance 1020 ml Intake Oral 1020 ml # Voids 1 # Bowel Movements 2 Labs: Laboratory Tests Test 06/02/18 07:17 06/02/18 10:04 06/02/18 11:38 06/02/18 16:46 Glucose (Fingerstick) 166 mg/dL (70-99) H 322 mg/dL (70-99) H 196 mg/dL (70-99) H White Blood Count 7.1 x10^3/uL (4.0-11.0) Red Blood Count 3.59 x10^6/uL (3.50-5.40) Hemoglobin 11.8 g/dL (12.0-15.5) L Hematocrit 34.3 % (36.0-47.0) L Mean Corpuscular Volume 96 fL (79-100) Mean Corpuscular Hemoglobin 33 pg (25-35) Mean Corpuscular Hemoglobin Concent 34 g/dL (31-37) Red Cell Distribution Width 12.4 % (11.5-14.5) Platelet Count 201 x10^3/uL (140-400) Neutrophils (%) (Auto) 73 % (31-73) Lymphocytes (%) (Auto) 18 % (24-48) L Monocytes (%) (Auto) 7 % (0-9) Eosinophils (%) (Auto) 2 % (0-3) Basophils (%) (Auto) 1 % (0-3) Neutrophils # (Auto) 5.2 x10^3uL (1.8-7.7) Lymphocytes # (Auto) 1.2 x10^3/uL (1.0-4.8) Monocytes # (Auto) 0.5 x10^3/uL (0.0-1.1) Eosinophils # (Auto) 0.1 x10^3/uL (0.0-0.7) Basophils # (Auto) 0.0 x10^3/uL (0.0-0.2) Sodium Level 140 mmol/L (136-145) Potassium Level 4.6 mmol/L (3.5-5.1) Chloride Level 104 mmol/L (98-107) Carbon Dioxide Level 27 mmol/L (21-32) Anion Gap 9 (6-14) Blood Urea Nitrogen 37 mg/dL (7-20) H Creatinine 1.3 mg/dL (0.6-1.0) H Estimated GFR (Cockcroft-Gault) 38.9 BUN/Creatinine Ratio 28 (6-20) H Glucose Level 305 mg/dL (70-99) H Calcium Level 9.5 mg/dL (8.5-10.1) Total Bilirubin 0.2 mg/dL (0.2-1.0) Aspartate Amino Transferase (AST) 13 U/L (15-37) L Alanine Aminotransferase (ALT) 17 U/L (14-59) Alkaline Phosphatase 84 U/L (46-116) Total Protein 7.0 g/dL (6.4-8.2) Albumin 3.4 g/dL (3.4-5.0) Albumin/Globulin Ratio 0.9 (1.0-1.7) L Test 06/02/18 19:28 Glucose (Fingerstick) 299 mg/dL (70-99) H Current Medications: Meds: Current Medications Carvedilol (Coreg) 6.25 mg BIDWMEALS PO Last administered on 06/02/18at 08:41; Start 05/25/18 at 17:00 Multi-Ingredient Ointment (Analgesic [place]) 1 [place] PRN QID PRN TP MUSCLE PAIN; Start 05/25/18 at 11:45 Aspirin (Children'S Aspirin) 81 mg DAILYWBKFT PO Last administered on at 08:40; Start 05/26/18 at 08:00 Vitamin D (Vitamin D3) 2,000 unit DAILY PO Last administered on 06/02/18at 08:42 ; Start 05/26/18 at 09:00 Docusate Sodium (Colace) 100 mg DAILY PO Last administered on 06/02/18 08:41; Start 05/26/18 at 09:00 Levetiracetam (Keppra) 500 mg BID PO Last administered on 06/02/18 19:26; Start 05/25/18 at 21:00 Magnesium Hydroxide (Milk Of Magnesia) 2,400 mg PRN QHS PRN PO CONSTIPATION Last administered on 05/30/18 17:09; Start 05/25/18 at 12:45 Magnesium Oxide (Magnesium Oxide) 400 mg DAILY PO Last administered on 08:43; Start 05/26/18 at 09:00 Multivit/ Folic Acid/Iron (Multivitamin ) 1 tab DAILYBFRSUP PO Last administered on 06/02/18 17:04; Start 05/25/18 at 17:00 Gabapentin (Neurontin) 100 mg BID PO Last administered on 06/02/18 19:27; Start 05/25/18 at 21:00 Insulin Glargine (Lantus) 8 units QHS SQ Last administered on 06/02/18 19:55; Start 05/25/18 at 21:00 Amlodipine Besylate (Norvasc) 10 mg QHS PO Last administered on 06/02/18 19:27 ; Start 05/25/18 at 21:00 Citalopram Hydrobromide (CeleXA) 10 mg DAILY PO Last administered on 06/02/18 08:41; Start 05/26/18 at 09:00 Glucagon (Glucagen Kit) 1 mg PRN DAILY PRN IM HYPOGLYCEMIA; Start 05/25/18 at 12:45 Insulin Human Lispro (HumaLOG) IF FSBS = , Then Gi... TIDAFTMEAL SQ Last administered on 06/02/18 12:05; Start 05/25/18 at 13:00 Levothyroxine Sodium (Synthroid) 125 mcg DAILY06 PO Last administered on 06:17; Start 05/26/18 at 06:00 Melatonin 6 mg QHS PO Last administered on 06/02/18 19:27; Start 05/25/18 at 21:00 Memantine (Namenda) 10 mg BID PO Last administered on 06/02/18 19:26; Start at 09:00 Polyethylene Glycol (miraLAX) 17 gm DAILY PO Last administered on 06/02/18 08: 41; Start 05/26/18 at 09:00 Calcium/Vitamin D (Oscal D 500mg/ 200uts) 1 tab DAILY PO Last administered on 08:42; Start 05/26/18 at 09:00 Olanzapine (ZyPREXA ZYDIS) 2.5 mg Q2HR PRN PO PSYCHOSIS/AGITATION Last administered on 06/01/18 21:51; Start 05/25/18 at 13:00 Donepezil HCl (Aricept) 5 mg BID PO Last administered on 06/02/18 19:25; Start 05/25/18 at 21:00 Acetaminophen (Tylenol) 650 mg PRN Q6HRS PRN PO PAIN / TEMP; Start 05/26/18 at 02:30 Al Hydroxide/Mg Hydroxide (Mylanta Plus Xs) 15 ml PRN AFTMEALHC PRN PO DYSPEPSIA; Start 05/26/18 at 02:30 Magnesium Hydroxide (Milk Of Magnesia) 2,400 mg PRN QHS PRN PO CONSTIPATION; Start 05/26/18 at 02:30; Stop 05/31/18 at 16:09; Status DC Buspirone HCl (Buspar) 5 mg BID PO Last administered on 06/02/18 19:25; Start 05/27/18 at 09:00 Mirtazapine (Remeron) 7.5 mg QHS PO Last administered on 05/28/18 19:34; Start 05/28/18 at 21:00; Stop 05/29/18 at 17:06; Status DC Mirtazapine (Remeron) 15 mg QHS PO Last administered on 06/02/18 19:26; Start 05/29/18 at 21:00 Quetiapine Fumarate (SEROquel) 12.5 mg 0900,1700 PO Last administered on 17:19; Start 05/31/18 at 09:00; Stop 05/31/18 at 18:11; Status DC Quetiapine Fumarate (SEROquel) 12.5 mg 0900,1900 PO Last administered on 18:24; Start 05/31/18 at 19:00 Quetiapine Fumarate (SEROquel) 12.5 mg DAILY@1700 PO Last administered on at 17:04; Start 06/01/18 at 17:00 Cefdinir (Omnicef) 300 mg BID PO Last administered on 06/02/18at 19:54; Start at 21:00 Active Scripts Active Reported Novolog Flexpen (Insulin Aspart) 100 Unit/1 Ml Insuln.pen 4-10 Unit SQ TIDAFTMEAL Namzaric 28 mg-10 mg Capsule (Memantine HCl/Donepezil HCl) 1 Each Cap.spr.24 1 Each PO QHS Miralax (Polyethylene Glycol 3350) 17 Gm Powd.pack 17 Gm PO DAILY Melatonin 3 Mg Tablet 5 Mg PO QHS Lantus Solostar (Insulin Glargine,Hum.rec.anlog) 100 Unit/1 Ml Insuln.pen 8 Unit SQ QHS Glucagon Emergency Kit (Glucagon,Human Recombinant) 1 Mg Kit 1 Mg IM PRN Neurontin (Gabapentin) 100 Mg Capsule 100 Mg PO BID Calcium + Vitamin D Tablet (Calcium Carbonate/Vitamin D3) 1 Each Tablet Unknown Dose PO DAILY Surfak (Docusate Calcium) 240 Mg Capsule 240 Mg PO DAILY Formula ( Vit W-Ca,Fe,FA(<1 mg)) 1 Each Tablet 1 Each PO DAILYBFRSUP Analgesic [place] (Methyl Salicylate/Menthol) 29 Gm Oint...g. 1 [place] TP PRN QID PRN Magnesium Oxide 400 Mg Tablet 1 Tab PO DAILY Milk Of Magnesia (Magnesium Hydroxide) 2,400 Mg/10 Ml Oral.susp 2,400 Mg PO PRN QHS PRN Escitalopram Oxalate 10 Mg Tablet 5 Mg PO DAILY Levothyroxine Sodium 125 Mcg Tablet 125 Mcg PO DAILY06 Levetiracetam 500 Mg Tablet 500 Mg PO BID Vitamin D (Cholecalciferol (Vitamin D3)) 2,000 Unit Capsule 2,000 Unit PO DAILY Carvedilol (Carvedilol) 6.25 Mg Tablet 1 Tab PO BIDWMEALS Aspirin 81 Mg Tab.chew 81 Mg PO DAILY Amlodipine Besylate 10 Mg Tablet 10 Mg PO QHS I have reviewed the current psychotropics carefully including drug interactions. Risk benefit ratio favors no change other than as noted in my dictated progress note. Diagnosis: Problems: (1) Anxiety disorder (2) Impulse control disorder (3) Dementia, vascular, with delusions (4) Dementia, vascular, with depression (5) Dementia in Alzheimer's disease with delusions (6) Dementia in Alzheimer's disease with depression (7) Dementia without behavioral disturbance (8) Lactic acidosis (9) Anemia (10) Generalized weakness (11) Dementia (12) Hyperglycemia (13) Renal insufficiency (14) Hypotension (15) Suicidal ideation (16) Elevated lactic acid level VÍCTOR DECKER MD Jun 02, 2018 22:36
[2018-06-03] MEDS: LEVOTHYROXINE 125 MCG TABLET PO SCH (05:00)
[2018-06-03 06:39] VITALS: BP 133/66
[2018-06-03] MEDS: ASPIRIN 81 MG TAB.CHEW PO SCH (08:08)
[2018-06-03] MEDS: CARVEDILOL 6.25 MG TABLET PO SCH ×2 (08:09→16:51)
[2018-06-03] MEDS: levETIRAcetam 500 MG TABLET PO SCH ×2 (08:10→20:41)
[2018-06-03] MEDS: MEMANTINE 10 MG TABLET. PO SCH ×2 (08:10→20:42)
[2018-06-03] MEDS: POLYETHYLENE GLYCOL 3350 17 GM PACKET. PO SCH (08:10)
[2018-06-03] MEDS: busPIRone 5 MG TABLET. PO SCH ×2 (08:10→20:41)
[2018-06-03] MEDS: MAGNESIUM OXIDE 400 MG TABLET PO SCH (08:10)
[2018-06-03] MEDS: DOCUSATE SODIUM 100 MG CAPSULE PO SCH (08:10)
[2018-06-03] MEDS: CITALOPRAM 10 MG TABLET. PO SCH (08:10)
[2018-06-03] MEDS: DONEPEZIL HCL 5 MG TABLET. PO SCH ×2 (08:10→20:41)
[2018-06-03] MEDS: CEFDINIR 300 MG CAPSULE PO SCH ×2 (08:11→20:41)
[2018-06-03] MEDS: GABAPENTIN 100 MG CAPSULE. PO SCH ×2 (08:11→20:41)
[2018-06-03] MEDS: CALCIUM CARB/VIT D3 500/200 TABLET PO SCH (08:11)
[2018-06-03] MEDS: CHOLECALCIFEROL (VITAMIN D3) 1,000 UNIT TABLET PO SCH (08:24)
[2018-06-03] MEDS: QUEtiapine 25 MG TABLET. PO SCH ×3 (08:24→17:43)
[2018-06-03] MEDS: INSULIN LISPRO 300 UNITS/3 ML INSULN.PEN. SQ SCH ×3 (09:00→17:43)
[2018-06-03] MEDS: LACTOBACILLUS RHAMNOSUS GG 1 CAPSULE. PO SCH ×2 (09:00→20:41)
[2018-06-03 15:49] VITALS: BP 115/75
[2018-06-03] MEDS: PRENATAL MULTIVITAMIN TABLET. PO SCH (16:51)
[2018-06-03] MEDS: MIRTAZAPINE 15 MG TABLET PO SCH (20:41)
[2018-06-03] MEDS: amLODIPine BESYLATE 10 MG TABLET PO SCH (20:42)
[2018-06-03] MEDS: MELATONIN 3 MG TABLET PO SCH (20:42)
[2018-06-03] MEDS: INSULIN GLARGINE 300 UNITS/3 ML INSULN.PEN. SQ SCH (20:47)
--- NOTE | 2018-06-03 22:44 | PDOC ---
Exam Note: Miguelito Note: Please also refer to the separate dictated note~for this date of service dictated separately.~Patient seen individually. Discussed the patient with Nursing staff reviewed the chart.~Reviewed interim history and current functioning. Reviewed vital signs,~Labs/ Radiology~and current medications noted below. Continue current treatment with the changes noted in the dictated addendum note Assessment: Vital Signs: Vital Signs Date Time Temp Pulse Resp B/P (MAP) Pulse Ox O2 Delivery O2 Flow Rate FiO2 06/03/18 20:42 65 115/75 06/03/18 15:49 98.0 16 94 06/01/18 16:00 Room Air I&O Intake and Output 06/03/18 07:00 Intake Total 960 ml Balance 960 ml Intake Oral 960 ml Labs: Laboratory Tests Test 06/03/18 07:35 06/03/18 11:50 06/03/18 17:41 06/03/18 19:57 Glucose (Fingerstick) 152 mg/dL (70-99) H 233 mg/dL (70-99) H 155 mg/dL (70-99) H 155 mg/dL (70-99) H Current Medications: Meds: Current Medications Carvedilol (Coreg) 6.25 mg BIDWMEALS PO Last administered on 06/03/18 16:51; Start 05/25/18 at 17:00 Multi-Ingredient Ointment (Analgesic [place]) 1 [place] PRN QID PRN TP MUSCLE PAIN; Start 05/25/18 at 11:45 Aspirin (Children'S Aspirin) 81 mg DAILYWBKFT PO Last administered on 08:08; Start 05/26/18 at 08:00 Vitamin D (Vitamin D3) 2,000 unit DAILY PO Last administered on 06/03/18 08:24 ; Start 05/26/18 at 09:00 Docusate Sodium (Colace) 100 mg DAILY PO Last administered on 06/03/18 08:10; Start 05/26/18 at 09:00 Levetiracetam (Keppra) 500 mg BID PO Last administered on 06/03/18 20:41; Start 05/25/18 at 21:00 Magnesium Hydroxide (Milk Of Magnesia) 2,400 mg PRN QHS PRN PO CONSTIPATION Last administered on 05/30/18 17:09; Start 05/25/18 at 12:45 Magnesium Oxide (Magnesium Oxide) 400 mg DAILY PO Last administered on 08:10; Start 05/26/18 at 09:00 Multivit/ Folic Acid/Iron (Multivitamin ) 1 tab DAILYBFRSUP PO Last administered on 06/03/18 16:51; Start 05/25/18 at 17:00 Gabapentin (Neurontin) 100 mg BID PO Last administered on 06/03/18 20:41; Start 05/25/18 at 21:00 Insulin Glargine (Lantus) 8 units QHS SQ Last administered on 06/03/18 20:47; Start 05/25/18 at 21:00 Amlodipine Besylate (Norvasc) 10 mg QHS PO Last administered on 06/03/18 20:42 ; Start 05/25/18 at 21:00 Citalopram Hydrobromide (CeleXA) 10 mg DAILY PO Last administered on 06/03/18 08:10; Start 05/26/18 at 09:00 Glucagon (Glucagen Kit) 1 mg PRN DAILY PRN IM HYPOGLYCEMIA; Start 05/25/18 at 12:45 Insulin Human Lispro (HumaLOG) IF FSBS = , Then Gi... TIDAFTMEAL SQ Last administered on 06/03/18 12:22; Start 05/25/18 at 13:00 Levothyroxine Sodium (Synthroid) 125 mcg DAILY06 PO Last administered on 05:00; Start 05/26/18 at 06:00 Melatonin 6 mg QHS PO Last administered on 06/03/18 20:42; Start 05/25/18 at 21:00 Memantine (Namenda) 10 mg BID PO Last administered on 06/03/18 20:42; Start at 09:00 Polyethylene Glycol (miraLAX) 17 gm DAILY PO Last administered on 06/03/18 08: 10; Start 05/26/18 at 09:00 Calcium/Vitamin D (Oscal D 500mg/ 200uts) 1 tab DAILY PO Last administered on 08:11; Start 05/26/18 at 09:00 Olanzapine (ZyPREXA ZYDIS) 2.5 mg Q2HR PRN PO PSYCHOSIS/AGITATION Last administered on 06/01/18 21:51; Start 05/25/18 at 13:00 Donepezil HCl (Aricept) 5 mg BID PO Last administered on 06/03/18 20:41; Start 05/25/18 at 21:00 Acetaminophen (Tylenol) 650 mg PRN Q6HRS PRN PO PAIN / TEMP; Start 05/26/18 at 02:30 Al Hydroxide/Mg Hydroxide (Mylanta Plus Xs) 15 ml PRN AFTMEALHC PRN PO DYSPEPSIA; Start 05/26/18 at 02:30 Magnesium Hydroxide (Milk Of Magnesia) 2,400 mg PRN QHS PRN PO CONSTIPATION; Start 05/26/18 at 02:30; Stop 05/31/18 at 16:09; Status DC Buspirone HCl (Buspar) 5 mg BID PO Last administered on 06/03/18 20:41; Start 05/27/18 at 09:00 Mirtazapine (Remeron) 7.5 mg QHS PO Last administered on 05/28/18 19:34; Start 05/28/18 at 21:00; Stop 05/29/18 at 17:06; Status DC Mirtazapine (Remeron) 15 mg QHS PO Last administered on 06/03/18 20:41; Start 05/29/18 at 21:00 Quetiapine Fumarate (SEROquel) 12.5 mg 0900,1700 PO Last administered on 17:19; Start 05/31/18 at 09:00; Stop 05/31/18 at 18:11; Status DC Quetiapine Fumarate (SEROquel) 12.5 mg 0900,1900 PO Last administered on 17:43; Start 05/31/18 at 19:00 Quetiapine Fumarate (SEROquel) 12.5 mg DAILY@1700 PO Last administered on 16:51; Start 06/01/18 at 17:00 Cefdinir (Omnicef) 300 mg BID PO Last administered on 06/03/18 20:41; Start at 21:00 Lactobacillus Rhamnosus (Culturelle) 1 cap BID PO Last administered on 3/31/ 19at 20:41; Start 06/03/18 at 09:00 Active Scripts Active Reported Novolog Flexpen (Insulin Aspart) 100 Unit/1 Ml Insuln.pen 4-10 Unit SQ TIDAFTMEAL Namzaric 28 mg-10 mg Capsule (Memantine HCl/Donepezil HCl) 1 Each Cap.spr.24 1 Each PO QHS Miralax (Polyethylene Glycol 3350) 17 Gm Powd.pack 17 Gm PO DAILY Melatonin 3 Mg Tablet 5 Mg PO QHS Lantus Solostar (Insulin Glargine,Hum.rec.anlog) 100 Unit/1 Ml Insuln.pen 8 Unit SQ QHS Glucagon Emergency Kit (Glucagon,Human Recombinant) 1 Mg Kit 1 Mg IM PRN Neurontin (Gabapentin) 100 Mg Capsule 100 Mg PO BID Calcium + Vitamin D Tablet (Calcium Carbonate/Vitamin D3) 1 Each Tablet Unknown Dose PO DAILY Surfak (Docusate Calcium) 240 Mg Capsule 240 Mg PO DAILY Formula ( Vit W-Ca,Fe,FA(<1 mg)) 1 Each Tablet 1 Each PO DAILYBFRSUP Analgesic [place] (Methyl Salicylate/Menthol) 29 Gm Oint...g. 1 [place] TP PRN QID PRN Magnesium Oxide 400 Mg Tablet 1 Tab PO DAILY Milk Of Magnesia (Magnesium Hydroxide) 2,400 Mg/10 Ml Oral.susp 2,400 Mg PO PRN QHS PRN Escitalopram Oxalate 10 Mg Tablet 5 Mg PO DAILY Levothyroxine Sodium 125 Mcg Tablet 125 Mcg PO DAILY06 Levetiracetam 500 Mg Tablet 500 Mg PO BID Vitamin D (Cholecalciferol (Vitamin D3)) 2,000 Unit Capsule 2,000 Unit PO DAILY Carvedilol (Carvedilol) 6.25 Mg Tablet 1 Tab PO BIDWMEALS Aspirin 81 Mg Tab.chew 81 Mg PO DAILY Amlodipine Besylate 10 Mg Tablet 10 Mg PO QHS I have reviewed the current psychotropics carefully including drug interactions. Risk benefit ratio favors no change other than as noted in my dictated progress note. Diagnosis: Problems: (1) Anxiety disorder (2) Impulse control disorder (3) Dementia, vascular, with delusions (4) Dementia, vascular, with depression (5) Dementia in Alzheimer's disease with delusions (6) Dementia in Alzheimer's disease with depression (7) Dementia without behavioral disturbance (8) Lactic acidosis (9) Anemia (10) Generalized weakness (11) Dementia (12) Hyperglycemia (13) Renal insufficiency (14) Hypotension (15) Suicidal ideation (16) Elevated lactic acid level VÍCTOR DECKER MD Jun 03, 2018 22:44
[2018-06-04] MEDS: LEVOTHYROXINE 125 MCG TABLET PO SCH (05:30)
[2018-06-04 06:44] VITALS: BP 120/77
[2018-06-04] MEDS: ASPIRIN 81 MG TAB.CHEW PO SCH (08:52)
[2018-06-04] MEDS: DONEPEZIL HCL 5 MG TABLET. PO SCH ×2 (08:53→20:22)
[2018-06-04] MEDS: CARVEDILOL 6.25 MG TABLET PO SCH ×2 (08:53→17:20)
[2018-06-04] MEDS: busPIRone 5 MG TABLET. PO SCH ×2 (08:53→20:22)
[2018-06-04] MEDS: DOCUSATE SODIUM 100 MG CAPSULE PO SCH (08:53)
[2018-06-04] MEDS: CITALOPRAM 10 MG TABLET. PO SCH (08:53)
[2018-06-04] MEDS: MAGNESIUM OXIDE 400 MG TABLET PO SCH (08:54)
[2018-06-04] MEDS: LACTOBACILLUS RHAMNOSUS GG 1 CAPSULE. PO SCH ×2 (08:54→20:23)
[2018-06-04] MEDS: levETIRAcetam 500 MG TABLET PO SCH ×2 (08:54→20:22)
[2018-06-04] MEDS: CEFDINIR 300 MG CAPSULE PO SCH ×2 (08:55→20:23)
[2018-06-04] MEDS: CALCIUM CARB/VIT D3 500/200 TABLET PO SCH (08:55)
[2018-06-04] MEDS: MEMANTINE 10 MG TABLET. PO SCH ×2 (08:55→20:22)
[2018-06-04] MEDS: QUEtiapine 25 MG TABLET. PO SCH ×3 (08:55→17:38)
[2018-06-04] MEDS: POLYETHYLENE GLYCOL 3350 17 GM PACKET. PO SCH (08:55)
[2018-06-04] MEDS: GABAPENTIN 100 MG CAPSULE. PO SCH ×2 (08:55→20:22)
[2018-06-04] MEDS: CHOLECALCIFEROL (VITAMIN D3) 1,000 UNIT TABLET PO SCH (08:56)
[2018-06-04] MEDS: INSULIN LISPRO 300 UNITS/3 ML INSULN.PEN. SQ SCH ×3 (08:56→17:19)
[2018-06-04 16:20] VITALS: BP 138/84
[2018-06-04] MEDS: PRENATAL MULTIVITAMIN TABLET. PO SCH (17:19)
--- NOTE | 2018-06-04 20:05 | PN ---
DATE: 06/01/2018 PSYCHIATRIC PROGRESS NOTE This late entry 06/01/2018 covers elements not covered in my initial note. SUBJECTIVE: I met with the patient in the evening. The patient slept 6-1/2 hours previous night. The patient remains confused, was "grumpy in the morning." Per nursing report, the patient is resistive to medications, did attend group, has conversation with herself, possibly hallucinating. REVIEW OF SYSTEMS: No CV, , pulmonary, eye, ENT system symptoms on review. Reliability poor. MENTAL STATUS EXAM: Oriented to herself. Insight, judgment, recent and remote memory, attention, concentration, fund of knowledge poor, consistent with her diagnosis mentioned in my initial note. PLAN: No change from initial note. MAN Calvin DECKER MD DR: ANDRAE/leonela JOB#: [id number] / [id number]
[2018-06-04] MEDS: amLODIPine BESYLATE 10 MG TABLET PO SCH (20:22)
[2018-06-04] MEDS: MIRTAZAPINE 15 MG TABLET PO SCH (20:22)
[2018-06-04] MEDS: MELATONIN 3 MG TABLET PO SCH (20:23)
[2018-06-04] MEDS: INSULIN GLARGINE 300 UNITS/3 ML INSULN.PEN. SQ SCH (20:24)
--- NOTE | 2018-06-04 21:53 | PN ---
DATE: 06/03/2018 PSYCHIATRIC PROGRESS NOTE This late entry 06/03/2018 covers elements not covered in my initial note. SUBJECTIVE: I met with the patient in the evening. The patient slept 8 hours previous night. She did well at night, remains confused, anxious, restless during the day. REVIEW OF SYSTEMS: No CV, , pulmonary, eye, ENT system symptoms on review. Ambulation impaired, in wheelchair. MENTAL STATUS EXAM: Oriented to herself. Insight, judgment, recent and remote memory, attention, concentration, fund of knowledge poor, consistent with her diagnosis mentioned in my initial note. PLAN: No change from initial note. MAN Calvin DECKER MD DR: ANDRAE/leonela JOB#: [id number] / [id number]
--- NOTE | 2018-06-04 21:53 | PN ---
DATE: 06/02/2018 PSYCHIATRIC PROGRESS NOTE This late entry 06/02/2018 covers elements not covered in my initial note. SUBJECTIVE: I met with the patient in the evening. The patient slept 7 hours previous night. The patient remains somewhat anxious, confused, labile in her mood, screaming at times. REVIEW OF SYSTEMS: No CV, , pulmonary, eye, ENT system symptoms on review. Gait unsteady, in wheelchair. Most of the screaming is when she is being changed by nursing staff. MENTAL STATUS EXAM: Oriented to herself. Insight, judgment, recent and remote memory, attention, concentration, fund of knowledge poor, consistent with her diagnosis mentioned in my initial note. PLAN: No change from initial note. Treat the UTI and then adjust psychotropics if mood lability persists. MAN Calvin DECKER MD DR: ANDRAE/leonela JOB#: [id number] / [id number]
--- NOTE | 2018-06-04 22:55 | PDOC ---
Exam Note: Miguelito Note: Please also refer to the separate dictated note~for this date of service dictated separately.~Patient seen individually. Discussed the patient with Nursing staff reviewed the chart.~Reviewed interim history and current functioning. Reviewed vital signs,~Labs/ Radiology~and current medications noted below. Continue current treatment with the changes noted in the dictated addendum note Assessment: Vital Signs: Vital Signs Date Time Temp Pulse Resp B/P (MAP) Pulse Ox O2 Delivery O2 Flow Rate FiO2 06/04/18 20:22 76 138/84 06/04/18 16:20 98.1 20 96 06/01/18 16:00 Room Air I&O Intake and Output 06/04/18 06:59 Intake Total 600 ml Balance 600 ml Intake Oral 600 ml # Bowel Movements 1 Labs: Laboratory Tests Test 06/04/18 07:25 06/04/18 11:57 06/04/18 16:45 06/04/18 19:23 Glucose (Fingerstick) 94 mg/dL (70-99) 143 mg/dL (70-99) H 209 mg/dL (70-99) H 322 mg/dL (70-99) H Current Medications: Meds: Current Medications Carvedilol (Coreg) 6.25 mg BIDWMEALS PO Last administered on 06/04/18 17:20; Start 05/25/18 at 17:00 Multi-Ingredient Ointment (Analgesic [place]) 1 [place] PRN QID PRN TP MUSCLE PAIN; Start 05/25/18 at 11:45 Aspirin (Children'S Aspirin) 81 mg DAILYWBKFT PO Last administered on 06/04/18at 08:52; Start 05/26/18 at 08:00 Vitamin D (Vitamin D3) 2,000 unit DAILY PO Last administered on 06/04/18 08:56 ; Start 05/26/18 at 09:00 Docusate Sodium (Colace) 100 mg DAILY PO Last administered on 06/04/18 08:53; Start 05/26/18 at 09:00 Levetiracetam (Keppra) 500 mg BID PO Last administered on 06/04/18 20:22; Start 05/25/18 at 21:00 Magnesium Hydroxide (Milk Of Magnesia) 2,400 mg PRN QHS PRN PO CONSTIPATION Last administered on 05/30/18at 17:09; Start 05/25/18 at 12:45 Magnesium Oxide (Magnesium Oxide) 400 mg DAILY PO Last administered on 08:54; Start 05/26/18 at 09:00 Multivit/ Folic Acid/Iron (Multivitamin ) 1 tab DAILYBFRSUP PO Last administered on 06/04/18 17:19; Start 05/25/18 at 17:00 Gabapentin (Neurontin) 100 mg BID PO Last administered on 06/04/18 20:22; Start 05/25/18 at 21:00 Insulin Glargine (Lantus) 8 units QHS SQ Last administered on 06/04/18 20:24; Start 05/25/18 at 21:00 Amlodipine Besylate (Norvasc) 10 mg QHS PO Last administered on 06/04/18 20:22 ; Start 05/25/18 at 21:00 Citalopram Hydrobromide (CeleXA) 10 mg DAILY PO Last administered on 06/04/18 08:53; Start 05/26/18 at 09:00 Glucagon (Glucagen Kit) 1 mg PRN DAILY PRN IM HYPOGLYCEMIA; Start 05/25/18 at 12:45 Insulin Human Lispro (HumaLOG) IF FSBS = , Then Gi... TIDAFTMEAL SQ Last administered on 06/04/18 17:19; Start 05/25/18 at 13:00 Levothyroxine Sodium (Synthroid) 125 mcg DAILY06 PO Last administered on 05:30; Start 05/26/18 at 06:00 Melatonin 6 mg QHS PO Last administered on 06/04/18 20:23; Start 05/25/18 at 21 :00 Memantine (Namenda) 10 mg BID PO Last administered on 06/04/18 20:22; Start at 09:00 Polyethylene Glycol (miraLAX) 17 gm DAILY PO Last administered on 06/04/18 08: 55; Start 05/26/18 at 09:00 Calcium/Vitamin D (Oscal D 500mg/ 200uts) 1 tab DAILY PO Last administered on 08:55; Start 05/26/18 at 09:00 Olanzapine (ZyPREXA ZYDIS) 2.5 mg Q2HR PRN PO PSYCHOSIS/AGITATION Last administered on 06/01/18 21:51; Start 05/25/18 at 13:00 Donepezil HCl (Aricept) 5 mg BID PO Last administered on 06/04/18 20:22; Start 05/25/18 at 21:00 Acetaminophen (Tylenol) 650 mg PRN Q6HRS PRN PO PAIN / TEMP; Start 05/26/18 at 02:30 Al Hydroxide/Mg Hydroxide (Mylanta Plus Xs) 15 ml PRN AFTMEALHC PRN PO DYSPEPSIA; Start 05/26/18 at 02:30 Magnesium Hydroxide (Milk Of Magnesia) 2,400 mg PRN QHS PRN PO CONSTIPATION; Start 05/26/18 at 02:30; Stop 05/31/18 at 16:09; Status DC Buspirone HCl (Buspar) 5 mg BID PO Last administered on 06/04/18 20:22; Start 05/27/18 at 09:00 Mirtazapine (Remeron) 7.5 mg QHS PO Last administered on 05/28/18 19:34; Start 05/28/18 at 21:00; Stop 05/29/18 at 17:06; Status DC Mirtazapine (Remeron) 15 mg QHS PO Last administered on 06/04/18 20:22; Start 05/29/18 at 21:00 Quetiapine Fumarate (SEROquel) 12.5 mg 0900,1700 PO Last administered on 17:19; Start 05/31/18 at 09:00; Stop 05/31/18 at 18:11; Status DC Quetiapine Fumarate (SEROquel) 12.5 mg 0900,1900 PO Last administered on 17:38; Start 05/31/18 at 19:00 Quetiapine Fumarate (SEROquel) 12.5 mg DAILY@1700 PO Last administered on 17:20; Start 06/01/18 at 17:00 Cefdinir (Omnicef) 300 mg BID PO Last administered on 06/04/18 20:23; Start at 21:00 Lactobacillus Rhamnosus (Culturelle) 1 cap BID PO Last administered on 4/1/ 19at 20:23; Start 06/03/18 at 09:00 Active Scripts Active Reported Novolog Flexpen (Insulin Aspart) 100 Unit/1 Ml Insuln.pen 4-10 Unit SQ TIDAFTMEAL Namzaric 28 mg-10 mg Capsule (Memantine HCl/Donepezil HCl) 1 Each Cap.spr.24 1 Each PO QHS Miralax (Polyethylene Glycol 3350) 17 Gm Powd.pack 17 Gm PO DAILY Melatonin 3 Mg Tablet 5 Mg PO QHS Lantus Solostar (Insulin Glargine,Hum.rec.anlog) 100 Unit/1 Ml Insuln.pen 8 Unit SQ QHS Glucagon Emergency Kit (Glucagon,Human Recombinant) 1 Mg Kit 1 Mg IM PRN Neurontin (Gabapentin) 100 Mg Capsule 100 Mg PO BID Calcium + Vitamin D Tablet (Calcium Carbonate/Vitamin D3) 1 Each Tablet Unknown Dose PO DAILY Surfak (Docusate Calcium) 240 Mg Capsule 240 Mg PO DAILY Formula ( Vit W-Ca,Fe,FA(<1 mg)) 1 Each Tablet 1 Each PO DAILYBFRSUP Analgesic [place] (Methyl Salicylate/Menthol) 29 Gm Oint...g. 1 [place] TP PRN QID PRN Magnesium Oxide 400 Mg Tablet 1 Tab PO DAILY Milk Of Magnesia (Magnesium Hydroxide) 2,400 Mg/10 Ml Oral.susp 2,400 Mg PO PRN QHS PRN Escitalopram Oxalate 10 Mg Tablet 5 Mg PO DAILY Levothyroxine Sodium 125 Mcg Tablet 125 Mcg PO DAILY06 Levetiracetam 500 Mg Tablet 500 Mg PO BID Vitamin D (Cholecalciferol (Vitamin D3)) 2,000 Unit Capsule 2,000 Unit PO DAILY Carvedilol (Carvedilol) 6.25 Mg Tablet 1 Tab PO BIDWMEALS Aspirin 81 Mg Tab.chew 81 Mg PO DAILY Amlodipine Besylate 10 Mg Tablet 10 Mg PO QHS I have reviewed the current psychotropics carefully including drug interactions. Risk benefit ratio favors no change other than as noted in my dictated progress note. Diagnosis: Problems: (1) Anxiety disorder (2) Impulse control disorder (3) Dementia, vascular, with delusions (4) Dementia, vascular, with depression (5) Dementia in Alzheimer's disease with delusions (6) Dementia in Alzheimer's disease with depression (7) Dementia without behavioral disturbance (8) Lactic acidosis (9) Anemia (10) Generalized weakness (11) Dementia (12) Hyperglycemia (13) Renal insufficiency (14) Hypotension (15) Suicidal ideation (16) Elevated lactic acid level VÍCTOR DECKER MD Jun 04, 2018 22:55
[2018-06-05] MEDS: LEVOTHYROXINE 125 MCG TABLET PO SCH (05:58)
[2018-06-05 06:06] VITALS: BP 115/71
[2018-06-05] MEDS: INSULIN LISPRO 300 UNITS/3 ML INSULN.PEN. SQ SCH ×3 (09:00→17:08)
[2018-06-05] MEDS: CARVEDILOL 6.25 MG TABLET PO SCH ×2 (09:31→17:07)
[2018-06-05] MEDS: ASPIRIN 81 MG TAB.CHEW PO SCH (09:31)
[2018-06-05] MEDS: CEFDINIR 300 MG CAPSULE PO SCH ×2 (09:32→19:55)
[2018-06-05] MEDS: DONEPEZIL HCL 5 MG TABLET. PO SCH ×2 (09:32→19:55)
[2018-06-05] MEDS: CITALOPRAM 10 MG TABLET. PO SCH (09:32)
[2018-06-05] MEDS: DOCUSATE SODIUM 100 MG CAPSULE PO SCH (09:32)
[2018-06-05] MEDS: MAGNESIUM OXIDE 400 MG TABLET PO SCH (09:32)
[2018-06-05] MEDS: busPIRone 5 MG TABLET. PO SCH ×2 (09:32→19:56)
[2018-06-05] MEDS: MEMANTINE 10 MG TABLET. PO SCH ×2 (09:32→19:55)
[2018-06-05] MEDS: CALCIUM CARB/VIT D3 500/200 TABLET PO SCH (09:32)
[2018-06-05] MEDS: POLYETHYLENE GLYCOL 3350 17 GM PACKET. PO SCH (09:32)
[2018-06-05] MEDS: levETIRAcetam 500 MG TABLET PO SCH ×2 (09:32→19:55)
[2018-06-05] MEDS: LACTOBACILLUS RHAMNOSUS GG 1 CAPSULE. PO SCH ×2 (09:32→19:55)
[2018-06-05] MEDS: QUEtiapine 25 MG TABLET. PO SCH ×3 (09:33→18:36)
[2018-06-05] MEDS: CHOLECALCIFEROL (VITAMIN D3) 1,000 UNIT TABLET PO SCH (09:33)
[2018-06-05] MEDS: GABAPENTIN 100 MG CAPSULE. PO SCH ×2 (09:34→19:56)
[2018-06-05 15:46] VITALS: BP 143/79
[2018-06-05] MEDS: PRENATAL MULTIVITAMIN TABLET. PO SCH (17:07)
[2018-06-05] MEDS: MELATONIN 3 MG TABLET PO SCH (19:55)
[2018-06-05] MEDS: amLODIPine BESYLATE 10 MG TABLET PO SCH (19:56)
[2018-06-05] MEDS: MIRTAZAPINE 15 MG TABLET PO SCH (19:56)
[2018-06-05] MEDS: INSULIN GLARGINE 300 UNITS/3 ML INSULN.PEN. SQ SCH (19:58)
--- NOTE | 2018-06-05 22:38 | PDOC ---
Exam Note: Miguelito Note: Please also refer to the separate dictated note~for this date of service dictated separately.~Patient seen individually. Discussed the patient with Nursing staff reviewed the chart.~Reviewed interim history and current functioning. Reviewed vital signs,~Labs/ Radiology~and current medications noted below. Continue current treatment with the changes noted in the dictated addendum note Assessment: Vital Signs: Vital Signs Date Time Temp Pulse Resp B/P (MAP) Pulse Ox O2 Delivery O2 Flow Rate FiO2 06/05/18 19:56 68 143/79 06/05/18 15:46 98.2 18 94 Room Air I&O Intake and Output 06/05/18 07:00 Intake Total 600 ml Balance 600 ml Intake Oral 600 ml # Voids 1 # Bowel Movements 1 Labs: Laboratory Tests Test 06/05/18 07:29 06/05/18 11:52 06/05/18 16:54 06/05/18 19:22 Glucose (Fingerstick) 82 mg/dL (70-99) 249 mg/dL (70-99) H 159 mg/dL (70-99) H 231 mg/dL (70-99) H Current Medications: Meds: Current Medications Carvedilol (Coreg) 6.25 mg BIDWMEALS PO Last administered on 06/05/18 17:07; Start 05/25/18 at 17:00 Multi-Ingredient Ointment (Analgesic [place]) 1 [place] PRN QID PRN TP MUSCLE PAIN; Start 05/25/18 at 11:45 Aspirin (Children'S Aspirin) 81 mg DAILYWBKFT PO Last administered on 06/05/18at 09:31; Start 05/26/18 at 08:00 Vitamin D (Vitamin D3) 2,000 unit DAILY PO Last administered on 06/05/18 09:33 ; Start 05/26/18 at 09:00 Docusate Sodium (Colace) 100 mg DAILY PO Last administered on 06/05/18 09:32; Start 05/26/18 at 09:00 Levetiracetam (Keppra) 500 mg BID PO Last administered on 06/05/18at 19:55; Start 05/25/18 at 21:00 Magnesium Hydroxide (Milk Of Magnesia) 2,400 mg PRN QHS PRN PO CONSTIPATION Last administered on 05/30/18 17:09; Start 05/25/18 at 12:45 Magnesium Oxide (Magnesium Oxide) 400 mg DAILY PO Last administered on 09:32; Start 05/26/18 at 09:00 Multivit/ Folic Acid/Iron (Multivitamin ) 1 tab DAILYBFRSUP PO Last administered on 06/05/18 17:07; Start 05/25/18 at 17:00 Gabapentin (Neurontin) 100 mg BID PO Last administered on 06/05/18 19:56; Start 05/25/18 at 21:00 Insulin Glargine (Lantus) 8 units QHS SQ Last administered on 06/05/18 19:58; Start 05/25/18 at 21:00 Amlodipine Besylate (Norvasc) 10 mg QHS PO Last administered on 06/05/18 19:56 ; Start 05/25/18 at 21:00 Citalopram Hydrobromide (CeleXA) 10 mg DAILY PO Last administered on 06/05/18 09:32; Start 05/26/18 at 09:00 Glucagon (Glucagen Kit) 1 mg PRN DAILY PRN IM HYPOGLYCEMIA; Start 05/25/18 at 12:45 Insulin Human Lispro (HumaLOG) IF FSBS = , Then Gi... TIDAFTMEAL SQ Last administered on 06/05/18 12:02; Start 05/25/18 at 13:00 Levothyroxine Sodium (Synthroid) 125 mcg DAILY06 PO Last administered on 05:58; Start 05/26/18 at 06:00 Melatonin 6 mg QHS PO Last administered on 06/05/18 19:55; Start 05/25/18 at 21 :00 Memantine (Namenda) 10 mg BID PO Last administered on 06/05/18 19:55; Start at 09:00 Polyethylene Glycol (miraLAX) 17 gm DAILY PO Last administered on 06/05/18 09: 32; Start 05/26/18 at 09:00 Calcium/Vitamin D (Oscal D 500mg/ 200uts) 1 tab DAILY PO Last administered on 09:32; Start 05/26/18 at 09:00 Olanzapine (ZyPREXA ZYDIS) 2.5 mg Q2HR PRN PO PSYCHOSIS/AGITATION Last administered on 06/01/18 21:51; Start 05/25/18 at 13:00 Donepezil HCl (Aricept) 5 mg BID PO Last administered on 06/05/18 19:55; Start 05/25/18 at 21:00 Acetaminophen (Tylenol) 650 mg PRN Q6HRS PRN PO PAIN / TEMP; Start 05/26/18 at 02:30 Al Hydroxide/Mg Hydroxide (Mylanta Plus Xs) 15 ml PRN AFTMEALHC PRN PO DYSPEPSIA; Start 05/26/18 at 02:30 Magnesium Hydroxide (Milk Of Magnesia) 2,400 mg PRN QHS PRN PO CONSTIPATION; Start 05/26/18 at 02:30; Stop 05/31/18 at 16:09; Status DC Buspirone HCl (Buspar) 5 mg BID PO Last administered on 06/05/18 19:56; Start 05/27/18 at 09:00 Mirtazapine (Remeron) 7.5 mg QHS PO Last administered on 05/28/18 19:34; Start 05/28/18 at 21:00; Stop 05/29/18 at 17:06; Status DC Mirtazapine (Remeron) 15 mg QHS PO Last administered on 06/05/18 19:56; Start 05/29/18 at 21:00 Quetiapine Fumarate (SEROquel) 12.5 mg 0900,1700 PO Last administered on 17:19; Start 05/31/18 at 09:00; Stop 05/31/18 at 18:11; Status DC Quetiapine Fumarate (SEROquel) 12.5 mg 0900,1900 PO Last administered on 18:36; Start 05/31/18 at 19:00 Quetiapine Fumarate (SEROquel) 12.5 mg DAILY@1700 PO Last administered on 17:08; Start 06/01/18 at 17:00 Cefdinir (Omnicef) 300 mg BID PO Last administered on 06/05/18 19:55; Start at 21:00 Lactobacillus Rhamnosus (Culturelle) 1 cap BID PO Last administered on 4/2/ 19at 19:55; Start 06/03/18 at 09:00 Active Scripts Active Reported Novolog Flexpen (Insulin Aspart) 100 Unit/1 Ml Insuln.pen 4-10 Unit SQ TIDAFTMEAL Namzaric 28 mg-10 mg Capsule (Memantine HCl/Donepezil HCl) 1 Each Cap.spr.24 1 Each PO QHS Miralax (Polyethylene Glycol 3350) 17 Gm Powd.pack 17 Gm PO DAILY Melatonin 3 Mg Tablet 5 Mg PO QHS Lantus Solostar (Insulin Glargine,Hum.rec.anlog) 100 Unit/1 Ml Insuln.pen 8 Unit SQ QHS Glucagon Emergency Kit (Glucagon,Human Recombinant) 1 Mg Kit 1 Mg IM PRN Neurontin (Gabapentin) 100 Mg Capsule 100 Mg PO BID Calcium + Vitamin D Tablet (Calcium Carbonate/Vitamin D3) 1 Each Tablet Unknown Dose PO DAILY Surfak (Docusate Calcium) 240 Mg Capsule 240 Mg PO DAILY Formula ( Vit W-Ca,Fe,FA(<1 mg)) 1 Each Tablet 1 Each PO DAILYBFRSUP Analgesic [place] (Methyl Salicylate/Menthol) 29 Gm Oint...g. 1 [place] TP PRN QID PRN Magnesium Oxide 400 Mg Tablet 1 Tab PO DAILY Milk Of Magnesia (Magnesium Hydroxide) 2,400 Mg/10 Ml Oral.susp 2,400 Mg PO PRN QHS PRN Escitalopram Oxalate 10 Mg Tablet 5 Mg PO DAILY Levothyroxine Sodium 125 Mcg Tablet 125 Mcg PO DAILY06 Levetiracetam 500 Mg Tablet 500 Mg PO BID Vitamin D (Cholecalciferol (Vitamin D3)) 2,000 Unit Capsule 2,000 Unit PO DAILY Carvedilol (Carvedilol) 6.25 Mg Tablet 1 Tab PO BIDWMEALS Aspirin 81 Mg Tab.chew 81 Mg PO DAILY Amlodipine Besylate 10 Mg Tablet 10 Mg PO QHS I have reviewed the current psychotropics carefully including drug interactions. Risk benefit ratio favors no change other than as noted in my dictated progress note. Diagnosis: Problems: (1) Anxiety disorder (2) Impulse control disorder (3) Dementia, vascular, with delusions (4) Dementia, vascular, with depression (5) Dementia in Alzheimer's disease with delusions (6) Dementia in Alzheimer's disease with depression (7) Dementia without behavioral disturbance (8) Lactic acidosis (9) Anemia (10) Generalized weakness (11) Dementia (12) Hyperglycemia (13) Renal insufficiency (14) Hypotension (15) Suicidal ideation (16) Elevated lactic acid level VÍCTOR DECKER MD Jun 05, 2018 22:38
--- NOTE | 2018-06-06 03:03 | PN ---
DATE: 06/04/2018 This late entry for 06/04/2018 covers elements not covered in my initial note. SUBJECTIVE: I met with the patient in the evening. The patient slept 8 hours previous night. She did reasonably well the previous night and during the day, she has been confused, but not aggressive, disruptive, still somewhat paranoid as I met with her. REVIEW OF SYSTEMS: Ambulation impaired with wheelchair. No CV, , pulmonary, eye, ENT system symptoms on review. Reliability poor. MENTAL STATUS EXAM: Oriented to herself. Insight, judgment, recent and remote memory, attention, concentration, fund of knowledge poor, consistent with her diagnosis mentioned in my initial note. PLAN: No change from initial note. MAN Calvin DECKER MD DR: ANDRAE/leonela JOB#: [id number] / [id number]
[2018-06-06 05:46] VITALS: BP 159/71
[2018-06-06] MEDS: LEVOTHYROXINE 125 MCG TABLET PO SCH (06:00)
[2018-06-06] MEDS: CALCIUM CARB/VIT D3 500/200 TABLET PO SCH (08:15)
[2018-06-06] MEDS: CARVEDILOL 6.25 MG TABLET PO SCH ×2 (08:15→17:04)
[2018-06-06] MEDS: busPIRone 5 MG TABLET. PO SCH ×2 (08:15→20:08)
[2018-06-06] MEDS: QUEtiapine 25 MG TABLET. PO SCH ×3 (08:16→20:13)
[2018-06-06] MEDS: CEFDINIR 300 MG CAPSULE PO SCH ×2 (08:18→20:08)
[2018-06-06] MEDS: LACTOBACILLUS RHAMNOSUS GG 1 CAPSULE. PO SCH ×2 (08:19→20:08)
[2018-06-06] MEDS: CITALOPRAM 10 MG TABLET. PO SCH (08:19)
[2018-06-06] MEDS: CHOLECALCIFEROL (VITAMIN D3) 1,000 UNIT TABLET PO SCH (08:19)
[2018-06-06] MEDS: POLYETHYLENE GLYCOL 3350 17 GM PACKET. PO SCH (08:19)
[2018-06-06] MEDS: MEMANTINE 10 MG TABLET. PO SCH ×2 (08:19→20:09)
[2018-06-06] MEDS: GABAPENTIN 100 MG CAPSULE. PO SCH ×2 (08:20→20:13)
[2018-06-06] MEDS: MAGNESIUM OXIDE 400 MG TABLET PO SCH (08:21)
[2018-06-06] MEDS: DOCUSATE SODIUM 100 MG CAPSULE PO SCH (08:21)
[2018-06-06] MEDS: levETIRAcetam 500 MG TABLET PO SCH ×2 (08:21→20:08)
[2018-06-06] MEDS: ASPIRIN 81 MG TAB.CHEW PO SCH (08:21)
[2018-06-06] MEDS: INSULIN LISPRO 300 UNITS/3 ML INSULN.PEN. SQ SCH ×3 (08:23→17:07)
[2018-06-06] MEDS: DONEPEZIL HCL 5 MG TABLET. PO SCH ×2 (08:24→20:08)
[2018-06-06 16:38] VITALS: BP 124/84
[2018-06-06] MEDS: PRENATAL MULTIVITAMIN TABLET. PO SCH (17:05)
[2018-06-06] MEDS: MELATONIN 3 MG TABLET PO SCH (20:08)
[2018-06-06] MEDS: MIRTAZAPINE 15 MG TABLET PO SCH (20:08)
[2018-06-06] MEDS: amLODIPine BESYLATE 10 MG TABLET PO SCH (20:08)
[2018-06-06] MEDS: INSULIN GLARGINE 300 UNITS/3 ML INSULN.PEN. SQ SCH (20:14)
--- NOTE | 2018-06-06 21:11 | PN ---
DATE: 06/05/2018 PSYCHIATRIC PROGRESS NOTE This late entry 06/05/2018 covers elements not covered in my initial note. SUBJECTIVE: I met with the patient in the evening. The patient slept 7 hours previous night. She has been redirectable, confused, less paranoid. REVIEW OF SYSTEMS: Ambulation impaired, in wheelchair. No CV, , pulmonary, eye system symptoms on review. Reliability poor. MENTAL STATUS EXAM: Oriented to herself. Insight, judgment, recent and remote memory, attention, concentration, fund of knowledge poor, consistent with her diagnosis mentioned in my initial note and she also has urinary tract infection, being treated. PLAN: No change from initial note. MAN Calvin DECKER MD DR: ANDRAE/leonela JOB#: [id number] / [id number]
--- NOTE | 2018-06-06 22:26 | PDOC ---
Exam Note: Miguelito Note: Please also refer to the separate dictated note~for this date of service dictated separately.~Patient seen individually. Discussed the patient with Nursing staff reviewed the chart.~Reviewed interim history and current functioning. Reviewed vital signs,~Labs/ Radiology~and current medications noted below. Continue current treatment with the changes noted in the dictated addendum note Assessment: Vital Signs: Vital Signs Date Time Temp Pulse Resp B/P (MAP) Pulse Ox O2 Delivery O2 Flow Rate FiO2 06/06/18 20:08 62 124/84 06/06/18 16:38 98.5 16 96 06/05/18 15:46 Room Air I&O Intake and Output 06/06/18 07:00 Intake Total 960 ml Balance 960 ml Intake Oral 960 ml # Voids 2 Labs: Laboratory Tests Test 06/06/18 07:43 06/06/18 12:14 06/06/18 16:54 06/06/18 19:26 Glucose (Fingerstick) 99 mg/dL (70-99) 90 mg/dL (70-99) 308 mg/dL (70-99) H 201 mg/dL (70-99) H Current Medications: Meds: Current Medications Carvedilol (Coreg) 6.25 mg BIDWMEALS PO Last administered on 06/06/18 17:04; Start 05/25/18 at 17:00 Multi-Ingredient Ointment (Analgesic Western) 1 [place] PRN QID PRN TP MUSCLE PAIN; Start 05/25/18 at 11:45 Aspirin (Children'S Aspirin) 81 mg DAILYWBKFT PO Last administered on 06/06/18 08:21; Start 05/26/18 at 08:00 Vitamin D (Vitamin D3) 2,000 unit DAILY PO Last administered on 06/06/18 08:19 ; Start 05/26/18 at 09:00 Docusate Sodium (Colace) 100 mg DAILY PO Last administered on 06/06/18 08:21; Start 05/26/18 at 09:00 Levetiracetam (Keppra) 500 mg BID PO Last administered on 06/06/18 20:08; Start 05/25/18 at 21:00 Magnesium Hydroxide (Milk Of Magnesia) 2,400 mg PRN QHS PRN PO CONSTIPATION Last administered on 05/30/18 17:09; Start 05/25/18 at 12:45 Magnesium Oxide (Magnesium Oxide) 400 mg DAILY PO Last administered on 08:21; Start 05/26/18 at 09:00 Multivit/ Folic Acid/Iron (Multivitamin ) 1 tab DAILYBFRSUP PO Last administered on 06/06/18 17:05; Start 05/25/18 at 17:00 Gabapentin (Neurontin) 100 mg BID PO Last administered on 06/06/18 20:13; Start 05/25/18 at 21:00 Insulin Glargine (Lantus) 8 units QHS SQ Last administered on 06/06/18 20:14; Start 05/25/18 at 21:00 Amlodipine Besylate (Norvasc) 10 mg QHS PO Last administered on 06/06/18 20:08 ; Start 05/25/18 at 21:00 Citalopram Hydrobromide (CeleXA) 10 mg DAILY PO Last administered on 06/06/18 08:19; Start 05/26/18 at 09:00 Glucagon (Glucagen Kit) 1 mg PRN DAILY PRN IM HYPOGLYCEMIA; Start 05/25/18 at 12:45 Insulin Human Lispro (HumaLOG) IF FSBS = , Then Gi... TIDAFTMEAL SQ Last administered on 06/06/18 17:07; Start 05/25/18 at 13:00 Levothyroxine Sodium (Synthroid) 125 mcg DAILY06 PO Last administered on 05:58; Start 05/26/18 at 06:00 Melatonin 6 mg QHS PO Last administered on 06/06/18 20:08; Start 05/25/18 at 21 :00 Memantine (Namenda) 10 mg BID PO Last administered on 06/06/18 20:09; Start at 09:00 Polyethylene Glycol (miraLAX) 17 gm DAILY PO Last administered on 06/06/18 08: 19; Start 05/26/18 at 09:00 Calcium/Vitamin D (Oscal D 500mg/ 200uts) 1 tab DAILY PO Last administered on 08:15; Start 05/26/18 at 09:00 Olanzapine (ZyPREXA ZYDIS) 2.5 mg Q2HR PRN PO PSYCHOSIS/AGITATION Last administered on 06/01/18 21:51; Start 05/25/18 at 13:00 Donepezil HCl (Aricept) 5 mg BID PO Last administered on 06/06/18 20:08; Start 05/25/18 at 21:00 Acetaminophen (Tylenol) 650 mg PRN Q6HRS PRN PO PAIN / TEMP; Start 05/26/18 at 02:30 Al Hydroxide/Mg Hydroxide (Mylanta Plus Xs) 15 ml PRN AFTMEALHC PRN PO DYSPEPSIA; Start 05/26/18 at 02:30 Magnesium Hydroxide (Milk Of Magnesia) 2,400 mg PRN QHS PRN PO CONSTIPATION; Start 05/26/18 at 02:30; Stop 05/31/18 at 16:09; Status DC Buspirone HCl (Buspar) 5 mg BID PO Last administered on 06/06/18 20:08; Start 05/27/18 at 09:00 Mirtazapine (Remeron) 7.5 mg QHS PO Last administered on 05/28/18 19:34; Start 05/28/18 at 21:00; Stop 05/29/18 at 17:06; Status DC Mirtazapine (Remeron) 15 mg QHS PO Last administered on 06/06/18 20:08; Start 05/29/18 at 21:00 Quetiapine Fumarate (SEROquel) 12.5 mg 0900,1700 PO Last administered on 17:19; Start 05/31/18 at 09:00; Stop 05/31/18 at 18:11; Status DC Quetiapine Fumarate (SEROquel) 12.5 mg 0900,1900 PO Last administered on 20:13; Start 05/31/18 at 19:00 Quetiapine Fumarate (SEROquel) 12.5 mg DAILY@1700 PO Last administered on 17:05; Start 06/01/18 at 17:00 Cefdinir (Omnicef) 300 mg BID PO Last administered on 06/06/18 20:08; Start at 21:00 Lactobacillus Rhamnosus (Culturelle) 1 cap BID PO Last administered on 4/3/ 19at 20:08; Start 06/03/18 at 09:00 Active Scripts Active Reported Novolog Flexpen (Insulin Aspart) 100 Unit/1 Ml Insuln.pen 4-10 Unit SQ TIDAFTMEAL Namzaric 28 mg-10 mg Capsule (Memantine HCl/Donepezil HCl) 1 Each Cap.spr.24 1 Each PO QHS Miralax (Polyethylene Glycol 3350) 17 Gm Powd.pack 17 Gm PO DAILY Melatonin 3 Mg Tablet 5 Mg PO QHS Lantus Solostar (Insulin Glargine,Hum.rec.anlog) 100 Unit/1 Ml Insuln.pen 8 Unit SQ QHS Glucagon Emergency Kit (Glucagon,Human Recombinant) 1 Mg Kit 1 Mg IM PRN Neurontin (Gabapentin) 100 Mg Capsule 100 Mg PO BID Calcium + Vitamin D Tablet (Calcium Carbonate/Vitamin D3) 1 Each Tablet Unknown Dose PO DAILY Surfak (Docusate Calcium) 240 Mg Capsule 240 Mg PO DAILY Formula ( Vit W-Ca,Fe,FA(<1 mg)) 1 Each Tablet 1 Each PO DAILYBFRSUP Analgesic Western (Methyl Salicylate/Menthol) 29 Gm Oint...g. 1 [place] TP PRN QID PRN Magnesium Oxide 400 Mg Tablet 1 Tab PO DAILY Milk Of Magnesia (Magnesium Hydroxide) 2,400 Mg/10 Ml Oral.susp 2,400 Mg PO PRN QHS PRN Escitalopram Oxalate 10 Mg Tablet 5 Mg PO DAILY Levothyroxine Sodium 125 Mcg Tablet 125 Mcg PO DAILY06 Levetiracetam 500 Mg Tablet 500 Mg PO BID Vitamin D (Cholecalciferol (Vitamin D3)) 2,000 Unit Capsule 2,000 Unit PO DAILY Carvedilol (Carvedilol) 6.25 Mg Tablet 1 Tab PO BIDWMEALS Aspirin 81 Mg Tab.chew 81 Mg PO DAILY Amlodipine Besylate 10 Mg Tablet 10 Mg PO QHS I have reviewed the current psychotropics carefully including drug interactions. Risk benefit ratio favors no change other than as noted in my dictated progress note. Diagnosis: Problems: (1) Anxiety disorder (2) Impulse control disorder (3) Dementia, vascular, with delusions (4) Dementia, vascular, with depression (5) Dementia in Alzheimer's disease with delusions (6) Dementia in Alzheimer's disease with depression (7) Dementia without behavioral disturbance (8) Lactic acidosis (9) Anemia (10) Generalized weakness (11) Dementia (12) Hyperglycemia (13) Renal insufficiency (14) Hypotension (15) Suicidal ideation (16) Elevated lactic acid level VÍCTOR DECKER MD Jun 06, 2018 22:26
[2018-06-07 05:54] VITALS: BP 110/69
[2018-06-07] MEDS: LEVOTHYROXINE 125 MCG TABLET PO SCH (06:13)
[2018-06-07] MEDS: CEFDINIR 300 MG CAPSULE PO SCH ×2 (07:30→20:01)
[2018-06-07] MEDS: DONEPEZIL HCL 5 MG TABLET. PO SCH ×2 (07:31→20:01)
[2018-06-07] MEDS: CHOLECALCIFEROL (VITAMIN D3) 1,000 UNIT TABLET PO SCH (07:31)
[2018-06-07] MEDS: LACTOBACILLUS RHAMNOSUS GG 1 CAPSULE. PO SCH ×2 (07:31→20:01)
[2018-06-07] MEDS: CALCIUM CARB/VIT D3 500/200 TABLET PO SCH (07:32)
[2018-06-07] MEDS: DOCUSATE SODIUM 100 MG CAPSULE PO SCH ×2 (07:32→20:01)
[2018-06-07] MEDS: levETIRAcetam 500 MG TABLET PO SCH ×2 (07:32→20:01)
[2018-06-07] MEDS: MEMANTINE 10 MG TABLET. PO SCH ×2 (07:32→20:02)
[2018-06-07] MEDS: ASPIRIN 81 MG TAB.CHEW PO SCH (07:32)
[2018-06-07] MEDS: CARVEDILOL 6.25 MG TABLET PO SCH ×2 (07:33→17:04)
[2018-06-07] MEDS: POLYETHYLENE GLYCOL 3350 17 GM PACKET. PO SCH (07:33)
[2018-06-07] MEDS: QUEtiapine 25 MG TABLET. PO SCH ×3 (07:37→20:04)
[2018-06-07] MEDS: CITALOPRAM 10 MG TABLET. PO SCH (07:37)
[2018-06-07] MEDS: GABAPENTIN 100 MG CAPSULE. PO SCH ×2 (07:37→20:03)
[2018-06-07] MEDS: MAGNESIUM OXIDE 400 MG TABLET PO SCH (07:37)
[2018-06-07] MEDS: INSULIN LISPRO 300 UNITS/3 ML INSULN.PEN. SQ SCH ×3 (09:00→18:41)
[2018-06-07] MEDS ORDERED: busPIRone 5 MG TABLET. PO SCH (09:00)
[2018-06-07 16:06] VITALS: BP 126/68
[2018-06-07] MEDS: PRENATAL MULTIVITAMIN TABLET. PO SCH (17:03)
[2018-06-07] MEDS: busPIRone 10 MG TABLET. PO SCH (17:03)
[2018-06-07] MEDS: MELATONIN 3 MG TABLET PO SCH (20:01)
[2018-06-07] MEDS: MIRTAZAPINE 15 MG TABLET PO SCH (20:02)
[2018-06-07] MEDS: amLODIPine BESYLATE 10 MG TABLET PO SCH (20:03)
[2018-06-07] MEDS: INSULIN GLARGINE 300 UNITS/3 ML INSULN.PEN. SQ SCH (20:06)
--- NOTE | 2018-06-07 22:34 | PDOC ---
Exam Note: Miguelito Note: Please also refer to the separate dictated note~for this date of service dictated separately.~Patient seen individually. Discussed the patient with Nursing staff reviewed the chart.~Reviewed interim history and current functioning. Reviewed vital signs,~Labs/ Radiology~and current medications noted below. Continue current treatment with the changes noted in the dictated addendum note Assessment: Vital Signs: Vital Signs Date Time Temp Pulse Resp B/P (MAP) Pulse Ox O2 Delivery O2 Flow Rate FiO2 06/07/18 20:03 61 126/68 06/07/18 16:06 97.5 18 96 Room Air I&O Intake and Output 06/07/18 07:00 Intake Total 240 ml Balance 240 ml Intake Oral 240 ml # Voids 1 Labs: Laboratory Tests Test 06/07/18 07:44 06/07/18 11:51 06/07/18 17:06 06/07/18 19:31 Glucose (Fingerstick) 192 mg/dL (70-99) H 147 mg/dL (70-99) H 218 mg/dL (70-99) H 266 mg/dL (70-99) H Current Medications: Meds: Current Medications Carvedilol (Coreg) 6.25 mg BIDWMEALS PO Last administered on 06/07/18 17:04; Start 05/25/18 at 17:00 Multi-Ingredient Ointment (Analgesic [place]) 1 [place] PRN QID PRN TP MUSCLE PAIN; Start 05/25/18 at 11:45 Aspirin (Children'S Aspirin) 81 mg DAILYWBKFT PO Last administered on 06/07/18at 07:32; Start 05/26/18 at 08:00 Vitamin D (Vitamin D3) 2,000 unit DAILY PO Last administered on 06/07/18at 07:31 ; Start 05/26/18 at 09:00 Docusate Sodium (Colace) 100 mg DAILY PO Last administered on 06/07/18 20:01; Start 05/26/18 at 09:00 Levetiracetam (Keppra) 500 mg BID PO Last administered on 06/07/18 20:01; Start 05/25/18 at 21:00 Magnesium Hydroxide (Milk Of Magnesia) 2,400 mg PRN QHS PRN PO CONSTIPATION Last administered on 05/30/18at 17:09; Start 05/25/18 at 12:45 Magnesium Oxide (Magnesium Oxide) 400 mg DAILY PO Last administered on 07:37; Start 05/26/18 at 09:00 Multivit/ Folic Acid/Iron (Multivitamin ) 1 tab DAILYBFRSUP PO Last administered on 06/07/18 17:03; Start 05/25/18 at 17:00 Gabapentin (Neurontin) 100 mg BID PO Last administered on 06/07/18 20:03; Start 05/25/18 at 21:00 Insulin Glargine (Lantus) 8 units QHS SQ Last administered on 06/07/18 20:06; Start 05/25/18 at 21:00 Amlodipine Besylate (Norvasc) 10 mg QHS PO Last administered on 06/07/18 20:03 ; Start 05/25/18 at 21:00 Citalopram Hydrobromide (CeleXA) 10 mg DAILY PO Last administered on 06/07/18 07:37; Start 05/26/18 at 09:00 Glucagon (Glucagen Kit) 1 mg PRN DAILY PRN IM HYPOGLYCEMIA; Start 05/25/18 at 12:45 Insulin Human Lispro (HumaLOG) IF FSBS = , Then Gi... TIDAFTMEAL SQ Last administered on 06/07/18 18:41; Start 05/25/18 at 13:00 Levothyroxine Sodium (Synthroid) 125 mcg DAILY06 PO Last administered on 06:13; Start 05/26/18 at 06:00 Melatonin 6 mg QHS PO Last administered on 06/07/18 20:01; Start 05/25/18 at 21 :00 Memantine (Namenda) 10 mg BID PO Last administered on 06/07/18 20:02; Start at 09:00 Polyethylene Glycol (miraLAX) 17 gm DAILY PO Last administered on 06/07/18 07: 33; Start 05/26/18 at 09:00 Calcium/Vitamin D (Oscal D 500mg/ 200uts) 1 tab DAILY PO Last administered on 07:32; Start 05/26/18 at 09:00 Olanzapine (ZyPREXA ZYDIS) 2.5 mg Q2HR PRN PO PSYCHOSIS/AGITATION Last administered on 06/01/18 21:51; Start 05/25/18 at 13:00 Donepezil HCl (Aricept) 5 mg BID PO Last administered on 06/07/18 20:01; Start 05/25/18 at 21:00 Acetaminophen (Tylenol) 650 mg PRN Q6HRS PRN PO PAIN / TEMP; Start 05/26/18 at 02:30 Al Hydroxide/Mg Hydroxide (Mylanta Plus Xs) 15 ml PRN AFTMEALHC PRN PO DYSPEPSIA; Start 05/26/18 at 02:30 Magnesium Hydroxide (Milk Of Magnesia) 2,400 mg PRN QHS PRN PO CONSTIPATION; Start 05/26/18 at 02:30; Stop 05/31/18 at 16:09; Status DC Buspirone HCl (Buspar) 5 mg BID PO Last administered on 06/06/18 20:08; Start 05/27/18 at 09:00; Stop 06/07/18 at 04:47; Status DC Mirtazapine (Remeron) 7.5 mg QHS PO Last administered on 05/28/18 19:34; Start 05/28/18 at 21:00; Stop 05/29/18 at 17:06; Status DC Mirtazapine (Remeron) 15 mg QHS PO Last administered on 06/07/18 20:02; Start 05/29/18 at 21:00 Quetiapine Fumarate (SEROquel) 12.5 mg 0900,1700 PO Last administered on 17:19; Start 05/31/18 at 09:00; Stop 05/31/18 at 18:11; Status DC Quetiapine Fumarate (SEROquel) 12.5 mg 0900,1900 PO Last administered on 20:04; Start 05/31/18 at 19:00 Quetiapine Fumarate (SEROquel) 12.5 mg DAILY@1700 PO Last administered on 17:04; Start 06/01/18 at 17:00 Cefdinir (Omnicef) 300 mg BID PO Last administered on 06/07/18 20:01; Start at 21:00 Lactobacillus Rhamnosus (Culturelle) 1 cap BID PO Last administered on at 20:01; Start 06/03/18 at 09:00 Buspirone HCl (Buspar) 5 mg BID@0900,1700 PO Last administered on 06/07/18at 07: 32; Start 06/07/18 at 09:00; Stop 06/07/18 at 09:44; Status DC Buspirone HCl (Buspar) 10 mg BID@0900,1700 PO Last administered on 06/07/18at 17: 03; Start 06/07/18 at 17:00 Active Scripts Active Reported Novolog Flexpen (Insulin Aspart) 100 Unit/1 Ml Insuln.pen 4-10 Unit SQ TIDAFTMEAL Namzaric 28 mg-10 mg Capsule (Memantine HCl/Donepezil HCl) 1 Each Cap.spr.24 1 Each PO QHS Miralax (Polyethylene Glycol 3350) 17 Gm Powd.pack 17 Gm PO DAILY Melatonin 3 Mg Tablet 5 Mg PO QHS Lantus Solostar (Insulin Glargine,Hum.rec.anlog) 100 Unit/1 Ml Insuln.pen 8 Unit SQ QHS Glucagon Emergency Kit (Glucagon,Human Recombinant) 1 Mg Kit 1 Mg IM PRN Neurontin (Gabapentin) 100 Mg Capsule 100 Mg PO BID Calcium + Vitamin D Tablet (Calcium Carbonate/Vitamin D3) 1 Each Tablet Unknown Dose PO DAILY Surfak (Docusate Calcium) 240 Mg Capsule 240 Mg PO DAILY Formula ( Vit W-Ca,Fe,FA(<1 mg)) 1 Each Tablet 1 Each PO DAILYBFRSUP Analgesic [place] (Methyl Salicylate/Menthol) 29 Gm Oint...g. 1 [place] TP PRN QID PRN Magnesium Oxide 400 Mg Tablet 1 Tab PO DAILY Milk Of Magnesia (Magnesium Hydroxide) 2,400 Mg/10 Ml Oral.susp 2,400 Mg PO PRN QHS PRN Escitalopram Oxalate 10 Mg Tablet 5 Mg PO DAILY Levothyroxine Sodium 125 Mcg Tablet 125 Mcg PO DAILY06 Levetiracetam 500 Mg Tablet 500 Mg PO BID Vitamin D (Cholecalciferol (Vitamin D3)) 2,000 Unit Capsule 2,000 Unit PO DAILY Carvedilol (Carvedilol) 6.25 Mg Tablet 1 Tab PO BIDWMEALS Aspirin 81 Mg Tab.chew 81 Mg PO DAILY Amlodipine Besylate 10 Mg Tablet 10 Mg PO QHS I have reviewed the current psychotropics carefully including drug interactions. Risk benefit ratio favors no change other than as noted in my dictated progress note. Diagnosis: Problems: (1) Anxiety disorder (2) Impulse control disorder (3) Dementia, vascular, with delusions (4) Dementia, vascular, with depression (5) Dementia in Alzheimer's disease with delusions (6) Dementia in Alzheimer's disease with depression (7) Dementia without behavioral disturbance (8) Lactic acidosis (9) Anemia (10) Generalized weakness (11) Dementia (12) Hyperglycemia (13) Renal insufficiency (14) Hypotension (15) Suicidal ideation (16) Elevated lactic acid level VÍCTOR DECKER MD Jun 07, 2018 22:34
[2018-06-08 05:27] VITALS: BP 109/71
[2018-06-08] MEDS: LEVOTHYROXINE 125 MCG TABLET PO SCH (05:44)
[2018-06-08 07:33] LABS: BASO % 1 % (0-3); EOS # 0.1 x10^3/uL (0.0-0.7); EOS % 2 % (0-3); HEMOGLOBIN 11.5 g/dL (12.0-15.5); LYMPH # 1.5 x10^3/uL (1.0-4.8); LYMPH % 27 % (24-48); MEAN CORPUSCULAR HEMOGLOBIN 32 pg (25-35); MEAN CORPUSCULAR HGB CONC 34 g/dL (31-37); MEAN CORPUSCULAR VOLUME 95 fL (79-100); MONO # 0.3 x10^3/uL (0.0-1.1); MONO % 6 % (0-9); NEUT # 3.6 x10^3uL (1.8-7.7); NEUT % 65 % (31-73); PLATELET COUNT 186 x10^3/uL (140-400); RED BLOOD COUNT 3.57 x10^6/uL (3.50-5.40); RED CELL DISTRIBUTION WIDTH 12.4 % (11.5-14.5); WHITE BLOOD COUNT 5.5 x10^3/uL (4.0-11.0)
[2018-06-08 07:52] LABS: ALBUMIN 3.5 g/dL (3.4-5.0); ALBUMIN/GLOBULIN RATIO 0.9 (1.0-1.7); CALCIUM 9.6 mg/dL (8.5-10.1); CREATININE 1.3 mg/dL (0.6-1.0); GFR 38.9; POTASSIUM 4.3 mmol/L (3.5-5.1); TOTAL BILIRUBIN 0.2 mg/dL (0.2-1.0); TOTAL PROTEIN 7.2 g/dL (6.4-8.2)
[2018-06-08] MEDS: QUEtiapine 25 MG TABLET. PO SCH ×3 (07:58→18:45)
[2018-06-08] MEDS: LACTOBACILLUS RHAMNOSUS GG 1 CAPSULE. PO SCH ×2 (07:58→20:22)
[2018-06-08] MEDS: CALCIUM CARB/VIT D3 500/200 TABLET PO SCH (07:58)
[2018-06-08] MEDS: POLYETHYLENE GLYCOL 3350 17 GM PACKET. PO SCH (07:58)
[2018-06-08] MEDS: CITALOPRAM 10 MG TABLET. PO SCH (07:59)
[2018-06-08] MEDS: CEFDINIR 300 MG CAPSULE PO SCH ×2 (07:59→20:22)
[2018-06-08] MEDS: CARVEDILOL 6.25 MG TABLET PO SCH ×2 (07:59→17:48)
[2018-06-08] MEDS: ASPIRIN 81 MG TAB.CHEW PO SCH (07:59)
[2018-06-08] MEDS: levETIRAcetam 500 MG TABLET PO SCH ×2 (08:00→20:22)
[2018-06-08] MEDS: busPIRone 10 MG TABLET. PO SCH ×2 (08:00→17:48)
[2018-06-08] MEDS: MEMANTINE 10 MG TABLET. PO SCH ×2 (08:00→20:23)
[2018-06-08] MEDS: DONEPEZIL HCL 5 MG TABLET. PO SCH ×2 (08:00→20:22)
[2018-06-08] MEDS: CHOLECALCIFEROL (VITAMIN D3) 1,000 UNIT TABLET PO SCH (08:00)
[2018-06-08] MEDS: MAGNESIUM OXIDE 400 MG TABLET PO SCH (08:00)
[2018-06-08] MEDS: INSULIN LISPRO 300 UNITS/3 ML INSULN.PEN. SQ SCH ×3 (08:00→17:48)
[2018-06-08] MEDS: GABAPENTIN 100 MG CAPSULE. PO SCH ×2 (08:02→20:22)
[2018-06-08 16:13] VITALS: BP 120/69
--- NOTE | 2018-06-08 17:28 | PN ---
DATE: 06/06/2018 PSYCHIATRIC PROGRESS NOTE This late entry 06/06/2018 covers elements not covered in my initial note. SUBJECTIVE: I met with the patient in the evening. The patient slept 6-3/4 hours previous night. She remains confused, somewhat paranoid at times, but not aggressive. REVIEW OF SYSTEMS: Ambulation impaired, in wheelchair. No CV, , pulmonary, eye, ENT system symptoms on review. Reliability poor. MENTAL STATUS EXAM: Oriented to herself. Insight, judgment, recent and remote memory, attention, concentration, fund of knowledge poor, consistent with her diagnosis mentioned in my initial note. PLAN: No change from initial note. MAN Calvin DECKER MD DR: ANDRAE/leonela JOB#: [id number] / [id number]
[2018-06-08] MEDS: PRENATAL MULTIVITAMIN TABLET. PO SCH (17:48)
--- NOTE | 2018-06-08 18:51 | PN ---
DATE: 06/07/2018 PSYCHIATRIC PROGRESS NOTE This late entry 06/07/2018 covers elements not covered in my initial note. SUBJECTIVE: I met with the patient in the evening and staffed at a treatment team meeting with the entire team in the morning. The patient is sleeping about 7 hours a night. Appetite 70%. She remains confused, somewhat better per nursing report, less anxious, agitated, less paranoid. Compliant with medications. REVIEW OF SYSTEMS: Ambulation impaired, in wheelchair. No CV, , pulmonary, eye, ENT system symptoms on review. Reliability poor. MENTAL STATUS EXAM: Oriented to herself. Insight, judgment, recent and remote memory, attention, concentration, fund of knowledge poor, consistent with her diagnosis mentioned in my initial note. PLAN: No change from initial note. MAN Calvin DECKER MD DR: ANDRAE/leonela JOB#: [id number] / [id number]
[2018-06-08] MEDS: MELATONIN 3 MG TABLET PO SCH (20:22)
[2018-06-08] MEDS: MAGNESIUM HYDROXIDE 2,400 MG/30 ML ORAL.SUSP. PO PRN (20:23)
[2018-06-08] MEDS: INSULIN GLARGINE 300 UNITS/3 ML INSULN.PEN. SQ SCH (20:24)
[2018-06-08] MEDS: amLODIPine BESYLATE 10 MG TABLET PO SCH (20:43)
[2018-06-08] MEDS: MIRTAZAPINE 15 MG TABLET PO SCH (20:44)
--- NOTE | 2018-06-08 22:28 | PDOC ---
Exam Note: Miguelito Note: Please also refer to the separate dictated note~for this date of service dictated separately.~Patient seen individually. Discussed the patient with Nursing staff reviewed the chart.~Reviewed interim history and current functioning. Reviewed vital signs,~Labs/ Radiology~and current medications noted below. Continue current treatment with the changes noted in the dictated addendum note Assessment: Vital Signs: Vital Signs Date Time Temp Pulse Resp B/P (MAP) Pulse Ox O2 Delivery O2 Flow Rate FiO2 06/08/18 20:43 66 105/69 06/08/18 16:13 97.2 16 94 06/08/18 05:27 Room Air I&O Intake and Output 06/08/18 07:00 Intake Total 600 ml Balance 600 ml Intake Oral 600 ml # Voids 1 Labs: Laboratory Tests Test 06/08/18 07:10 06/08/18 07:27 06/08/18 11:46 06/08/18 16:52 White Blood Count 5.5 x10^3/uL (4.0-11.0) Red Blood Count 3.57 x10^6/uL (3.50-5.40) Hemoglobin 11.5 g/dL (12.0-15.5) L Hematocrit 34.0 % (36.0-47.0) L Mean Corpuscular Volume 95 fL (79-100) Mean Corpuscular Hemoglobin 32 pg (25-35) Mean Corpuscular Hemoglobin Concent 34 g/dL (31-37) Red Cell Distribution Width 12.4 % (11.5-14.5) Platelet Count 186 x10^3/uL (140-400) Neutrophils (%) (Auto) 65 % (31-73) Lymphocytes (%) (Auto) 27 % (24-48) Monocytes (%) (Auto) 6 % (0-9) Eosinophils (%) (Auto) 2 % (0-3) Basophils (%) (Auto) 1 % (0-3) Neutrophils # (Auto) 3.6 x10^3uL (1.8-7.7) Lymphocytes # (Auto) 1.5 x10^3/uL (1.0-4.8) Monocytes # (Auto) 0.3 x10^3/uL (0.0-1.1) Eosinophils # (Auto) 0.1 x10^3/uL (0.0-0.7) Basophils # (Auto) 0.0 x10^3/uL (0.0-0.2) Sodium Level 142 mmol/L (136-145) Potassium Level 4.3 mmol/L (3.5-5.1) Chloride Level 106 mmol/L (98-107) Carbon Dioxide Level 32 mmol/L (21-32) Anion Gap 4 (6-14) L Blood Urea Nitrogen 37 mg/dL (7-20) H Creatinine 1.3 mg/dL (0.6-1.0) H Estimated GFR (Cockcroft-Gault) 38.9 BUN/Creatinine Ratio 28 (6-20) H Glucose Level 141 mg/dL (70-99) H Calcium Level 9.6 mg/dL (8.5-10.1) Total Bilirubin 0.2 mg/dL (0.2-1.0) Aspartate Amino Transferase (AST) 15 U/L (15-37) Alanine Aminotransferase (ALT) 17 U/L (14-59) Alkaline Phosphatase 78 U/L (46-116) Total Protein 7.2 g/dL (6.4-8.2) Albumin 3.5 g/dL (3.4-5.0) Albumin/Globulin Ratio 0.9 (1.0-1.7) L Glucose (Fingerstick) 104 mg/dL (70-99) H 224 mg/dL (70-99) H 121 mg/dL (70-99) H Test 06/08/18 19:37 Glucose (Fingerstick) 346 mg/dL (70-99) H Current Medications: Meds: Current Medications Carvedilol (Coreg) 6.25 mg BIDWMEALS PO Last administered on 06/08/18at 17:48; Start 05/25/18 at 17:00 Multi-Ingredient Ointment (Analgesic [place]) 1 [place] PRN QID PRN TP MUSCLE PAIN; Start 05/25/18 at 11:45 Aspirin (Children'S Aspirin) 81 mg DAILYWBKFT PO Last administered on 06/08/18at 07:59; Start 05/26/18 at 08:00 Vitamin D (Vitamin D3) 2,000 unit DAILY PO Last administered on 06/08/18at 08:00 ; Start 05/26/18 at 09:00 Docusate Sodium (Colace) 100 mg DAILY PO Last administered on 06/07/18 20:01; Start 05/26/18 at 09:00 Levetiracetam (Keppra) 500 mg BID PO Last administered on 06/08/18 20:22; Start 05/25/18 at 21:00 Magnesium Hydroxide (Milk Of Magnesia) 2,400 mg PRN QHS PRN PO CONSTIPATION Last administered on 06/08/18 20:23; Start 05/25/18 at 12:45 Magnesium Oxide (Magnesium Oxide) 400 mg DAILY PO Last administered on 08:00; Start 05/26/18 at 09:00 Multivit/ Folic Acid/Iron (Multivitamin ) 1 tab DAILYBFRSUP PO Last administered on 06/08/18 17:48; Start 05/25/18 at 17:00 Gabapentin (Neurontin) 100 mg BID PO Last administered on 06/08/18 20:22; Start 05/25/18 at 21:00 Insulin Glargine (Lantus) 8 units QHS SQ Last administered on 06/08/18 20:24; Start 05/25/18 at 21:00 Amlodipine Besylate (Norvasc) 10 mg QHS PO Last administered on 06/08/18 20:43 ; Start 05/25/18 at 21:00 Citalopram Hydrobromide (CeleXA) 10 mg DAILY PO Last administered on 06/08/18 07:59; Start 05/26/18 at 09:00 Glucagon (Glucagen Kit) 1 mg PRN DAILY PRN IM HYPOGLYCEMIA; Start 05/25/18 at 12:45 Insulin Human Lispro (HumaLOG) IF FSBS = , Then Gi... TIDAFTMEAL SQ Last administered on 06/08/18 12:36; Start 05/25/18 at 13:00 Levothyroxine Sodium (Synthroid) 125 mcg DAILY06 PO Last administered on 05:44; Start 05/26/18 at 06:00 Melatonin 6 mg QHS PO Last administered on 06/08/18 20:22; Start 05/25/18 at 21 :00 Memantine (Namenda) 10 mg BID PO Last administered on 06/08/18 20:23; Start at 09:00 Polyethylene Glycol (miraLAX) 17 gm DAILY PO Last administered on 06/08/18 07: 58; Start 05/26/18 at 09:00 Calcium/Vitamin D (Oscal D 500mg/ 200uts) 1 tab DAILY PO Last administered on 07:58; Start 05/26/18 at 09:00 Olanzapine (ZyPREXA ZYDIS) 2.5 mg Q2HR PRN PO PSYCHOSIS/AGITATION Last administered on 06/01/18 21:51; Start 05/25/18 at 13:00 Donepezil HCl (Aricept) 5 mg BID PO Last administered on 06/08/18 20:22; Start 05/25/18 at 21:00 Acetaminophen (Tylenol) 650 mg PRN Q6HRS PRN PO PAIN / TEMP Last administered on 06/08/18 20:22; Start 05/26/18 at 02:30 Al Hydroxide/Mg Hydroxide (Mylanta Plus Xs) 15 ml PRN AFTMEALHC PRN PO DYSPEPSIA; Start 05/26/18 at 02:30 Magnesium Hydroxide (Milk Of Magnesia) 2,400 mg PRN QHS PRN PO CONSTIPATION; Start 05/26/18 at 02:30; Stop 05/31/18 at 16:09; Status DC Buspirone HCl (Buspar) 5 mg BID PO Last administered on 06/06/18 20:08; Start 05/27/18 at 09:00; Stop 06/07/18 at 04:47; Status DC Mirtazapine (Remeron) 7.5 mg QHS PO Last administered on 05/28/18 19:34; Start 05/28/18 at 21:00; Stop 05/29/18 at 17:06; Status DC Mirtazapine (Remeron) 15 mg QHS PO Last administered on 06/08/18 20:44; Start 05/29/18 at 21:00 Quetiapine Fumarate (SEROquel) 12.5 mg 0900,1700 PO Last administered on 17:19; Start 05/31/18 at 09:00; Stop 05/31/18 at 18:11; Status DC Quetiapine Fumarate (SEROquel) 12.5 mg 0900,1900 PO Last administered on 18:45; Start 05/31/18 at 19:00 Quetiapine Fumarate (SEROquel) 12.5 mg DAILY@1700 PO Last administered on 17:48; Start 06/01/18 at 17:00 Cefdinir (Omnicef) 300 mg BID PO Last administered on 06/08/18 20:22; Start at 21:00 Lactobacillus Rhamnosus (Culturelle) 1 cap BID PO Last administered on 20:22; Start 06/03/18 at 09:00 Buspirone HCl (Buspar) 5 mg BID@0900,1700 PO Last administered on 06/07/18at 07: 32; Start 06/07/18 at 09:00; Stop 06/07/18 at 09:44; Status DC Buspirone HCl (Buspar) 10 mg BID@0900,1700 PO Last administered on 06/08/18 17: 48; Start 06/07/18 at 17:00 Active Scripts Active Reported Novolog Flexpen (Insulin Aspart) 100 Unit/1 Ml Insuln.pen 4-10 Unit SQ TIDAFTMEAL Namzaric 28 mg-10 mg Capsule (Memantine HCl/Donepezil HCl) 1 Each Cap.spr.24 1 Each PO QHS Miralax (Polyethylene Glycol 3350) 17 Gm Powd.pack 17 Gm PO DAILY Melatonin 3 Mg Tablet 5 Mg PO QHS Lantus Solostar (Insulin Glargine,Hum.rec.anlog) 100 Unit/1 Ml Insuln.pen 8 Unit SQ QHS Glucagon Emergency Kit (Glucagon,Human Recombinant) 1 Mg Kit 1 Mg IM PRN Neurontin (Gabapentin) 100 Mg Capsule 100 Mg PO BID Calcium + Vitamin D Tablet (Calcium Carbonate/Vitamin D3) 1 Each Tablet Unknown Dose PO DAILY Surfak (Docusate Calcium) 240 Mg Capsule 240 Mg PO DAILY Formula ( Vit W-Ca,Fe,FA(<1 mg)) 1 Each Tablet 1 Each PO DAILYBFRSUP Analgesic [place] (Methyl Salicylate/Menthol) 29 Gm Oint...g. 1 [place] TP PRN QID PRN Magnesium Oxide 400 Mg Tablet 1 Tab PO DAILY Milk Of Magnesia (Magnesium Hydroxide) 2,400 Mg/10 Ml Oral.susp 2,400 Mg PO PRN QHS PRN Escitalopram Oxalate 10 Mg Tablet 5 Mg PO DAILY Levothyroxine Sodium 125 Mcg Tablet 125 Mcg PO DAILY06 Levetiracetam 500 Mg Tablet 500 Mg PO BID Vitamin D (Cholecalciferol (Vitamin D3)) 2,000 Unit Capsule 2,000 Unit PO DAILY Carvedilol (Carvedilol) 6.25 Mg Tablet 1 Tab PO BIDWMEALS Aspirin 81 Mg Tab.chew 81 Mg PO DAILY Amlodipine Besylate 10 Mg Tablet 10 Mg PO QHS I have reviewed the current psychotropics carefully including drug interactions. Risk benefit ratio favors no change other than as noted in my dictated progress note. Diagnosis: Problems: (1) Anxiety disorder (2) Impulse control disorder (3) Dementia, vascular, with delusions (4) Dementia, vascular, with depression (5) Dementia in Alzheimer's disease with delusions (6) Dementia in Alzheimer's disease with depression (7) Dementia without behavioral disturbance (8) Lactic acidosis (9) Anemia (10) Generalized weakness (11) Dementia (12) Hyperglycemia (13) Renal insufficiency (14) Hypotension (15) Suicidal ideation (16) Elevated lactic acid level VÍCTOR DECKER MD Jun 08, 2018 22:28
[2018-06-09 05:56] VITALS: BP 123/66
[2018-06-09] MEDS: LEVOTHYROXINE 125 MCG TABLET PO SCH (06:04)
[2018-06-09 07:55] LABS: FECAL OB PT NEGATIVE (NEG)
[2018-06-09] MEDS: ASPIRIN 81 MG TAB.CHEW PO SCH (08:13)
[2018-06-09] MEDS: busPIRone 10 MG TABLET. PO SCH ×2 (08:14→17:20)
[2018-06-09] MEDS: LACTOBACILLUS RHAMNOSUS GG 1 CAPSULE. PO SCH ×2 (08:14→19:14)
[2018-06-09] MEDS: DOCUSATE SODIUM 100 MG CAPSULE PO SCH (08:14)
[2018-06-09] MEDS: DONEPEZIL HCL 5 MG TABLET. PO SCH ×2 (08:14→19:14)
[2018-06-09] MEDS: CITALOPRAM 10 MG TABLET. PO SCH (08:14)
[2018-06-09] MEDS: CARVEDILOL 6.25 MG TABLET PO SCH ×2 (08:14→16:32)
[2018-06-09] MEDS: levETIRAcetam 500 MG TABLET PO SCH ×2 (08:15→19:15)
[2018-06-09] MEDS: MAGNESIUM OXIDE 400 MG TABLET PO SCH (08:15)
[2018-06-09] MEDS: MEMANTINE 10 MG TABLET. PO SCH ×2 (08:15→19:15)
[2018-06-09] MEDS: POLYETHYLENE GLYCOL 3350 17 GM PACKET. PO SCH (08:15)
[2018-06-09] MEDS: GABAPENTIN 100 MG CAPSULE. PO SCH ×2 (08:16→19:15)
[2018-06-09] MEDS: CALCIUM CARB/VIT D3 500/200 TABLET PO SCH (08:16)
[2018-06-09] MEDS: CEFDINIR 300 MG CAPSULE PO SCH ×2 (08:16→19:17)
[2018-06-09] MEDS: QUEtiapine 25 MG TABLET. PO SCH ×3 (08:17→18:15)
[2018-06-09] MEDS: CHOLECALCIFEROL (VITAMIN D3) 1,000 UNIT TABLET PO SCH (08:18)
[2018-06-09] MEDS: INSULIN LISPRO 300 UNITS/3 ML INSULN.PEN. SQ SCH ×3 (08:18→17:21)
[2018-06-09 16:40] VITALS: BP 157/85
[2018-06-09] MEDS: PRENATAL MULTIVITAMIN TABLET. PO SCH (17:20)
[2018-06-09] MEDS: MELATONIN 3 MG TABLET PO SCH (19:14)
[2018-06-09] MEDS: amLODIPine BESYLATE 10 MG TABLET PO SCH (19:16)
[2018-06-09] MEDS: MIRTAZAPINE 15 MG TABLET PO SCH (19:17)
[2018-06-09] MEDS: INSULIN GLARGINE 300 UNITS/3 ML INSULN.PEN. SQ SCH (20:50)
[2018-06-10] MEDS ORDERED: ACET325T9 PO (00:10)
[2018-06-10] MEDS ORDERED: CEFD300C PO (00:11)
[2018-06-10] MEDS ORDERED: MIRT15TA3 PO (00:12)
[2018-06-10] MEDS ORDERED: LACT1CAP21 PO (00:12)
[2018-06-10] MEDS ORDERED: OLAN5TAB5 PO (00:13)
[2018-06-10] MEDS ORDERED: QUET25TA PO (00:15)
[2018-06-10] MEDS ORDERED: QUET25TA5 PO (00:16)
[2018-06-10] MEDS ORDERED: BUSP10TA PO (00:17)
[2018-06-10 05:37] VITALS: BP 125/73
[2018-06-10] MEDS: LEVOTHYROXINE 125 MCG TABLET PO SCH (05:51)
--- NOTE | 2018-06-10 06:39 | PN ---
DATE: 06/08/2018 PSYCHIATRIC PROGRESS NOTE This late entry, 06/08/2018, covers elements not covered in my initial note. SUBJECTIVE: I met with the patient in the evening. The patient slept 7-1/2 hours previous night. The patient remains confused. Previous night she was combative during shower time. Still somewhat paranoid. REVIEW OF SYSTEMS: Ambulation impaired, in wheelchair. No CV, , pulmonary, eye system symptoms on review. Reliability poor. MENTAL STATUS EXAM: Oriented to herself. Insight, judgment, recent and remote memory, attention, concentration, fund of knowledge poor, consistent with her diagnosis mentioned in my initial note. PLAN: No change from initial note. VÍCTOR DECKER MD DR: ANDRAE/leonela JOB#: [id number] / [id number]
[2018-06-10] MEDS: ASPIRIN 81 MG TAB.CHEW PO SCH (07:52)
[2018-06-10] MEDS: CARVEDILOL 6.25 MG TABLET PO SCH (07:54)
[2018-06-10] MEDS: DOCUSATE SODIUM 100 MG CAPSULE PO SCH (07:54)
[2018-06-10] MEDS: CITALOPRAM 10 MG TABLET. PO SCH (07:54)
[2018-06-10] MEDS: DONEPEZIL HCL 5 MG TABLET. PO SCH ×2 (07:54→19:32)
[2018-06-10] MEDS: busPIRone 10 MG TABLET. PO SCH ×2 (07:54→17:17)
[2018-06-10] MEDS: POLYETHYLENE GLYCOL 3350 17 GM PACKET. PO SCH (07:55)
[2018-06-10] MEDS: LACTOBACILLUS RHAMNOSUS GG 1 CAPSULE. PO SCH ×2 (07:55→19:32)
[2018-06-10] MEDS: levETIRAcetam 500 MG TABLET PO SCH ×2 (07:55→19:32)
[2018-06-10] MEDS: MAGNESIUM OXIDE 400 MG TABLET PO SCH (07:55)
[2018-06-10] MEDS: MEMANTINE 10 MG TABLET. PO SCH ×2 (07:55→19:32)
[2018-06-10] MEDS: CEFDINIR 300 MG CAPSULE PO SCH (07:57)
[2018-06-10] MEDS: GABAPENTIN 100 MG CAPSULE. PO SCH ×2 (07:57→19:32)
[2018-06-10] MEDS: CALCIUM CARB/VIT D3 500/200 TABLET PO SCH (07:58)
[2018-06-10] MEDS: QUEtiapine 25 MG TABLET. PO SCH ×3 (07:58→18:34)
[2018-06-10] MEDS: CHOLECALCIFEROL (VITAMIN D3) 1,000 UNIT TABLET PO SCH (07:59)
[2018-06-10] MEDS: INSULIN LISPRO 300 UNITS/3 ML INSULN.PEN. SQ SCH ×3 (09:00→17:18)
--- NOTE | 2018-06-10 09:38 | PDOC ---
Exam Note: Miguelito Note: VS - Last 72 Hours, by Label Date Time Temp Pulse Resp B/P (MAP) Pulse Ox O2 Delivery O2 Flow Rate FiO2 06/10/18 07:54 63 125/73 06/10/18 05:37 98.8 63 16 125/73 (90) 99 06/09/18 19:16 59 157/85 06/09/18 16:40 97.8 59 20 157/85 (109) 96 Room Air 06/09/18 08:14 66 123/66 06/09/18 05:56 97.6 66 16 123/66 (85) 96 06/08/18 20:43 66 105/69 06/08/18 17:48 67 120/69 06/08/18 16:13 97.2 67 16 120/69 (86) 94 06/08/18 07:59 61 109/71 06/08/18 05:27 96.9 61 16 109/71 (84) 100 Room Air 06/07/18 20:03 61 126/68 06/07/18 17:04 61 126/68 06/07/18 16:06 97.5 61 18 126/68 (87) 96 Room Air Late entry for DOS 06/09/2018. Please also refer to the separate dictated note~ for this date of service dictated separately.~Patient seen individually. Discussed the patient with Nursing staff reviewed the chart.~Reviewed interim history and current functioning. Reviewed vital signs,~Labs/ Radiology~and current medications noted below. Continue current treatment with the changes noted in the dictated addendum note Assessment: Vital Signs: Vital Signs Date Time Temp Pulse Resp B/P (MAP) Pulse Ox O2 Delivery O2 Flow Rate FiO2 06/10/18 07:54 63 125/73 06/10/18 05:37 98.8 16 99 06/09/18 16:40 Room Air I&O Intake and Output 06/10/18 06:59 Intake Total 1440 ml Balance 1440 ml Intake Oral 1440 ml # Voids 1 Labs: Laboratory Tests Test 06/09/18 11:33 06/09/18 16:41 06/09/18 19:55 06/10/18 07:45 Glucose (Fingerstick) 274 mg/dL (70-99) H 109 mg/dL (70-99) H 177 mg/dL (70-99) H 131 mg/dL (70-99) H Current Medications: Meds: Current Medications Carvedilol (Coreg) 6.25 mg BIDWMEALS PO Last administered on 06/10/18 07:54; Start 05/25/18 at 17:00 Multi-Ingredient Ointment (Analgesic [place]) 1 [place] PRN QID PRN TP MUSCLE PAIN; Start 05/25/18 at 11:45 Aspirin (Children'S Aspirin) 81 mg DAILYWBKFT PO Last administered on 06/10/18 07:52; Start 05/26/18 at 08:00 Vitamin D (Vitamin D3) 2,000 unit DAILY PO Last administered on 06/10/18 07:59 ; Start 05/26/18 at 09:00 Docusate Sodium (Colace) 100 mg DAILY PO Last administered on 06/10/18 07:54; Start 05/26/18 at 09:00 Levetiracetam (Keppra) 500 mg BID PO Last administered on 06/10/18 07:55; Start 05/25/18 at 21:00 Magnesium Hydroxide (Milk Of Magnesia) 2,400 mg PRN QHS PRN PO CONSTIPATION Last administered on 06/08/18 20:23; Start 05/25/18 at 12:45 Magnesium Oxide (Magnesium Oxide) 400 mg DAILY PO Last administered on 07:55; Start 05/26/18 at 09:00 Multivit/ Folic Acid/Iron (Multivitamin ) 1 tab DAILYBFRSUP PO Last administered on 06/09/18 17:20; Start 05/25/18 at 17:00 Gabapentin (Neurontin) 100 mg BID PO Last administered on 06/10/18 07:57; Start 05/25/18 at 21:00 Insulin Glargine (Lantus) 8 units QHS SQ Last administered on 06/09/18 20:50; Start 05/25/18 at 21:00 Amlodipine Besylate (Norvasc) 10 mg QHS PO Last administered on 06/09/18 19:16 ; Start 05/25/18 at 21:00 Citalopram Hydrobromide (CeleXA) 10 mg DAILY PO Last administered on 06/10/18 07:54; Start 05/26/18 at 09:00 Glucagon (Glucagen Kit) 1 mg PRN DAILY PRN IM HYPOGLYCEMIA; Start 05/25/18 at 12:45 Insulin Human Lispro (HumaLOG) IF FSBS = , Then Gi... TIDAFTMEAL SQ Last administered on 06/09/18 12:15; Start 05/25/18 at 13:00 Levothyroxine Sodium (Synthroid) 125 mcg DAILY06 PO Last administered on 05:51; Start 05/26/18 at 06:00 Melatonin 6 mg QHS PO Last administered on 06/09/18 19:14; Start 05/25/18 at 21 :00 Memantine (Namenda) 10 mg BID PO Last administered on 06/10/18 07:55; Start at 09:00 Polyethylene Glycol (miraLAX) 17 gm DAILY PO Last administered on 06/10/18 07: 55; Start 05/26/18 at 09:00 Calcium/Vitamin D (Oscal D 500mg/ 200uts) 1 tab DAILY PO Last administered on 07:58; Start 05/26/18 at 09:00 Olanzapine (ZyPREXA ZYDIS) 2.5 mg Q2HR PRN PO PSYCHOSIS/AGITATION Last administered on 06/09/18 00:01; Start 05/25/18 at 13:00 Donepezil HCl (Aricept) 5 mg BID PO Last administered on 06/10/18 07:54; Start 05/25/18 at 21:00 Acetaminophen (Tylenol) 650 mg PRN Q6HRS PRN PO PAIN / TEMP Last administered on 06/08/18 20:22; Start 05/26/18 at 02:30 Al Hydroxide/Mg Hydroxide (Mylanta Plus Xs) 15 ml PRN AFTMEALHC PRN PO DYSPEPSIA; Start 05/26/18 at 02:30 Magnesium Hydroxide (Milk Of Magnesia) 2,400 mg PRN QHS PRN PO CONSTIPATION; Start 05/26/18 at 02:30; Stop 05/31/18 at 16:09; Status DC Buspirone HCl (Buspar) 5 mg BID PO Last administered on 06/06/18 20:08; Start 05/27/18 at 09:00; Stop 06/07/18 at 04:47; Status DC Mirtazapine (Remeron) 7.5 mg QHS PO Last administered on 05/28/18at 19:34; Start 05/28/18 at 21:00; Stop 05/29/18 at 17:06; Status DC Mirtazapine (Remeron) 15 mg QHS PO Last administered on 06/09/18at 19:17; Start 05/29/18 at 21:00 Quetiapine Fumarate (SEROquel) 12.5 mg 0900,1700 PO Last administered on at 17:19; Start 05/31/18 at 09:00; Stop 05/31/18 at 18:11; Status DC Quetiapine Fumarate (SEROquel) 12.5 mg 0900,1900 PO Last administered on at 07:58; Start 05/31/18 at 19:00 Quetiapine Fumarate (SEROquel) 12.5 mg DAILY@1700 PO Last administered on at 17:20; Start 06/01/18 at 17:00 Cefdinir (Omnicef) 300 mg BID PO Last administered on 06/10/18at 07:57; Start at 21:00; Stop 06/10/18 at 12:00 Lactobacillus Rhamnosus (Culturelle) 1 cap BID PO Last administered on 07:55; Start 06/03/18 at 09:00; Stop 06/20/18 at 12:00 Buspirone HCl (Buspar) 5 mg BID@0900,1700 PO Last administered on 06/07/18at 07: 32; Start 06/07/18 at 09:00; Stop 06/07/18 at 09:44; Status DC Buspirone HCl (Buspar) 10 mg BID@0900,1700 PO Last administered on 06/10/18at 07: 54; Start 06/07/18 at 17:00 Active Scripts Active Reported Buspirone Hcl 10 Mg Tablet 10 Mg PO BID@0900,1700 Seroquel (Quetiapine Fumarate) 25 Mg Tablet 12.5 Mg PO DAILY@1700 Quetiapine Fumarate 25 Mg Tablet 12.5 Mg PO BID@0900,1900 Zyprexa Zydis (Olanzapine) 5 Mg Tab.rapdis 2.5 Mg PO PRN Q2HR PRN Mirtazapine 15 Mg Tablet 15 Mg PO QHS Culturelle (Lactobacillus Rhamnosus Gg) 1 Each Capsule 1 Each PO BID Cefdinir 300 Mg Capsule 300 Mg PO BID Tylenol (Acetaminophen) 325 Mg Tablet 650 Mg PO PRN Q6HRS PRN Novolog Flexpen (Insulin Aspart) 100 Unit/1 Ml Insuln.pen 4-10 Unit SQ TIDAFTMEAL Namzaric 28 mg-10 mg Capsule (Memantine HCl/Donepezil HCl) 1 Each Cap.spr.24 1 Each PO QHS Miralax (Polyethylene Glycol 3350) 17 Gm Powd.pack 17 Gm PO DAILY Melatonin 3 Mg Tablet 5 Mg PO QHS Lantus Solostar (Insulin Glargine,Hum.rec.anlog) 100 Unit/1 Ml Insuln.pen 8 Unit SQ QHS Glucagon Emergency Kit (Glucagon,Human Recombinant) 1 Mg Kit 1 Mg IM PRN Neurontin (Gabapentin) 100 Mg Capsule 100 Mg PO BID Calcium + Vitamin D Tablet (Calcium Carbonate/Vitamin D3) 1 Each Tablet Unknown Dose PO DAILY Surfak (Docusate Calcium) 240 Mg Capsule 240 Mg PO DAILY Formula ( Vit W-Ca,Fe,FA(<1 mg)) 1 Each Tablet 1 Each PO DAILYBFRSUP Analgesic [place] (Methyl Salicylate/Menthol) 29 Gm Oint...g. 1 [place] TP PRN QID PRN Magnesium Oxide 400 Mg Tablet 1 Tab PO DAILY Milk Of Magnesia (Magnesium Hydroxide) 2,400 Mg/10 Ml Oral.susp 2,400 Mg PO PRN QHS PRN Escitalopram Oxalate 10 Mg Tablet 5 Mg PO DAILY Levothyroxine Sodium 125 Mcg Tablet 125 Mcg PO DAILY06 Levetiracetam 500 Mg Tablet 500 Mg PO BID Vitamin D (Cholecalciferol (Vitamin D3)) 2,000 Unit Capsule 2,000 Unit PO DAILY Carvedilol (Carvedilol) 6.25 Mg Tablet 1 Tab PO BIDWMEALS Aspirin 81 Mg Tab.chew 81 Mg PO DAILY Amlodipine Besylate 10 Mg Tablet 10 Mg PO QHS I have reviewed the current psychotropics carefully including drug interactions. Risk benefit ratio favors no change other than as noted in my dictated progress note. 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
[2018-06-10 16:20] VITALS: BP 110/60
[2018-06-10] MEDS: PRENATAL MULTIVITAMIN TABLET. PO SCH (17:18)
[2018-06-10] MEDS: CARVEDILOL 3.125 MG TABLET PO SCH (17:18)
[2018-06-10] MEDS: MELATONIN 3 MG TABLET PO SCH (19:31)
[2018-06-10] MEDS: amLODIPine BESYLATE 10 MG TABLET PO SCH (19:33)
[2018-06-10] MEDS: MIRTAZAPINE 15 MG TABLET PO SCH (19:33)
[2018-06-10] MEDS: INSULIN GLARGINE 300 UNITS/3 ML INSULN.PEN. SQ SCH (19:35)
--- NOTE | 2018-06-10 22:47 | PDOC ---
Exam Note: Miguelito Note: Please also refer to the separate dictated note~for this date of service dictated separately.~Patient seen individually. Discussed the patient with Nursing staff reviewed the chart.~Reviewed interim history and current functioning. Reviewed vital signs,~Labs/ Radiology~and current medications noted below. Continue current treatment with the changes noted in the dictated addendum note Assessment: Vital Signs: Vital Signs Date Time Temp Pulse Resp B/P (MAP) Pulse Ox O2 Delivery O2 Flow Rate FiO2 06/10/18 19:33 68 110/60 06/10/18 16:20 97.4 20 97 06/09/18 16:40 Room Air I&O Intake and Output 06/10/18 06:59 Intake Total 1440 ml Balance 1440 ml Intake Oral 1440 ml # Voids 1 Labs: Laboratory Tests Test 06/10/18 07:45 06/10/18 11:35 06/10/18 11:37 06/10/18 16:43 Glucose (Fingerstick) 131 mg/dL (70-99) H 305 mg/dL (70-99) H 322 mg/dL (70-99) H 126 mg/dL (70-99) H Test 06/10/18 19:09 Glucose (Fingerstick) 279 mg/dL (70-99) H Current Medications: Meds: Current Medications Carvedilol (Coreg) 6.25 mg BIDWMEALS PO Last administered on 06/10/18at 07:54; Start 05/25/18 at 17:00; Stop 06/10/18 at 16:41; Status DC Multi-Ingredient Ointment (Analgesic [place]) 1 [place] PRN QID PRN TP MUSCLE PAIN; Start 05/25/18 at 11:45 Aspirin (Children'S Aspirin) 81 mg DAILYWBKFT PO Last administered on 06/10/18at 07:52; Start 05/26/18 at 08:00 Vitamin D (Vitamin D3) 2,000 unit DAILY PO Last administered on 06/10/18 07:59 ; Start 05/26/18 at 09:00 Docusate Sodium (Colace) 100 mg DAILY PO Last administered on 06/10/18at 07:54; Start 05/26/18 at 09:00 Levetiracetam (Keppra) 500 mg BID PO Last administered on 06/10/18 19:32; Start 05/25/18 at 21:00 Magnesium Hydroxide (Milk Of Magnesia) 2,400 mg PRN QHS PRN PO CONSTIPATION Last administered on 06/08/18 20:23; Start 05/25/18 at 12:45 Magnesium Oxide (Magnesium Oxide) 400 mg DAILY PO Last administered on 07:55; Start 05/26/18 at 09:00 Multivit/ Folic Acid/Iron (Multivitamin ) 1 tab DAILYBFRSUP PO Last administered on 06/10/18 17:18; Start 05/25/18 at 17:00 Gabapentin (Neurontin) 100 mg BID PO Last administered on 06/10/18 19:32; Start 05/25/18 at 21:00 Insulin Glargine (Lantus) 8 units QHS SQ Last administered on 06/10/18 19:35; Start 05/25/18 at 21:00 Amlodipine Besylate (Norvasc) 10 mg QHS PO Last administered on 06/10/18 19:33 ; Start 05/25/18 at 21:00 Citalopram Hydrobromide (CeleXA) 10 mg DAILY PO Last administered on 06/10/18 07:54; Start 05/26/18 at 09:00 Glucagon (Glucagen Kit) 1 mg PRN DAILY PRN IM HYPOGLYCEMIA; Start 05/25/18 at 12:45 Insulin Human Lispro (HumaLOG) IF FSBS = , Then Gi... TIDAFTMEAL SQ Last administered on 06/10/18 12:00; Start 05/25/18 at 13:00 Levothyroxine Sodium (Synthroid) 125 mcg DAILY06 PO Last administered on 05:51; Start 05/26/18 at 06:00 Melatonin 6 mg QHS PO Last administered on 06/10/18 19:31; Start 05/25/18 at 21 :00 Memantine (Namenda) 10 mg BID PO Last administered on 06/10/18 19:32; Start at 09:00 Polyethylene Glycol (miraLAX) 17 gm DAILY PO Last administered on 06/10/18 07: 55; Start 05/26/18 at 09:00 Calcium/Vitamin D (Oscal D 500mg/ 200uts) 1 tab DAILY PO Last administered on 07:58; Start 05/26/18 at 09:00 Olanzapine (ZyPREXA ZYDIS) 2.5 mg Q2HR PRN PO PSYCHOSIS/AGITATION Last administered on 06/09/18 00:01; Start 05/25/18 at 13:00 Donepezil HCl (Aricept) 5 mg BID PO Last administered on 06/10/18 19:32; Start 05/25/18 at 21:00 Acetaminophen (Tylenol) 650 mg PRN Q6HRS PRN PO PAIN / TEMP Last administered on 06/08/18 20:22; Start 05/26/18 at 02:30 Al Hydroxide/Mg Hydroxide (Mylanta Plus Xs) 15 ml PRN AFTMEALHC PRN PO DYSPEPSIA; Start 05/26/18 at 02:30 Magnesium Hydroxide (Milk Of Magnesia) 2,400 mg PRN QHS PRN PO CONSTIPATION; Start 05/26/18 at 02:30; Stop 05/31/18 at 16:09; Status DC Buspirone HCl (Buspar) 5 mg BID PO Last administered on 06/06/18 20:08; Start 05/27/18 at 09:00; Stop 06/07/18 at 04:47; Status DC Mirtazapine (Remeron) 7.5 mg QHS PO Last administered on 05/28/18 19:34; Start 05/28/18 at 21:00; Stop 05/29/18 at 17:06; Status DC Mirtazapine (Remeron) 15 mg QHS PO Last administered on 06/10/18 19:33; Start 05/29/18 at 21:00 Quetiapine Fumarate (SEROquel) 12.5 mg 0900,1700 PO Last administered on 17:19; Start 05/31/18 at 09:00; Stop 05/31/18 at 18:11; Status DC Quetiapine Fumarate (SEROquel) 12.5 mg 0900,1900 PO Last administered on 18:34; Start 05/31/18 at 19:00 Quetiapine Fumarate (SEROquel) 12.5 mg DAILY@1700 PO Last administered on 17:18; Start 06/01/18 at 17:00 Cefdinir (Omnicef) 300 mg BID PO Last administered on 06/10/18 07:57; Start at 21:00; Stop 06/10/18 at 12:00; Status DC Lactobacillus Rhamnosus (Culturelle) 1 cap BID PO Last administered on 19:32; Start 06/03/18 at 09:00; Stop 06/20/18 at 12:00 Buspirone HCl (Buspar) 5 mg BID@0900,1700 PO Last administered on 06/07/18 07: 32; Start 06/07/18 at 09:00; Stop 06/07/18 at 09:44; Status DC Buspirone HCl (Buspar) 10 mg BID@0900,1700 PO Last administered on 06/10/18 17: 17; Start 06/07/18 at 17:00 Carvedilol (Coreg) 3.125 mg BIDWMEALS PO Last administered on 06/10/18 17:18; Start 06/10/18 at 17:00 Active Scripts Active Reported Buspirone Hcl 10 Mg Tablet 10 Mg PO BID@0900,1700 Seroquel (Quetiapine Fumarate) 25 Mg Tablet 12.5 Mg PO DAILY@1700 Quetiapine Fumarate 25 Mg Tablet 12.5 Mg PO BID@0900,1900 Zyprexa Zydis (Olanzapine) 5 Mg Tab.rapdis 2.5 Mg PO PRN Q2HR PRN Mirtazapine 15 Mg Tablet 15 Mg PO QHS Culturelle (Lactobacillus Rhamnosus Gg) 1 Each Capsule 1 Each PO BID Cefdinir 300 Mg Capsule 300 Mg PO BID Tylenol (Acetaminophen) 325 Mg Tablet 650 Mg PO PRN Q6HRS PRN Novolog Flexpen (Insulin Aspart) 100 Unit/1 Ml Insuln.pen 4-10 Unit SQ TIDAFTMEAL Namzaric 28 mg-10 mg Capsule (Memantine HCl/Donepezil HCl) 1 Each Cap.spr.24 1 Each PO QHS Miralax (Polyethylene Glycol 3350) 17 Gm Powd.pack 17 Gm PO DAILY Melatonin 3 Mg Tablet 5 Mg PO QHS Lantus Solostar (Insulin Glargine,Hum.rec.anlog) 100 Unit/1 Ml Insuln.pen 8 Unit SQ QHS Glucagon Emergency Kit (Glucagon,Human Recombinant) 1 Mg Kit 1 Mg IM PRN Neurontin (Gabapentin) 100 Mg Capsule 100 Mg PO BID Calcium + Vitamin D Tablet (Calcium Carbonate/Vitamin D3) 1 Each Tablet Unknown Dose PO DAILY Surfak (Docusate Calcium) 240 Mg Capsule 240 Mg PO DAILY Formula ( Vit W-Ca,Fe,FA(<1 mg)) 1 Each Tablet 1 Each PO DAILYBFRSUP Analgesic [place] (Methyl Salicylate/Menthol) 29 Gm Oint...g. 1 [place] TP PRN QID PRN Magnesium Oxide 400 Mg Tablet 1 Tab PO DAILY Milk Of Magnesia (Magnesium Hydroxide) 2,400 Mg/10 Ml Oral.susp 2,400 Mg PO PRN QHS PRN Escitalopram Oxalate 10 Mg Tablet 5 Mg PO DAILY Levothyroxine Sodium 125 Mcg Tablet 125 Mcg PO DAILY06 Levetiracetam 500 Mg Tablet 500 Mg PO BID Vitamin D (Cholecalciferol (Vitamin D3)) 2,000 Unit Capsule 2,000 Unit PO DAILY Carvedilol (Carvedilol) 6.25 Mg Tablet 1 Tab PO BIDWMEALS Aspirin 81 Mg Tab.chew 81 Mg PO DAILY Amlodipine Besylate 10 Mg Tablet 10 Mg PO QHS I have reviewed the current psychotropics carefully including drug interactions. Risk benefit ratio favors no change other than as noted in my dictated progress note. Diagnosis: Problems: (1) Anxiety disorder (2) Impulse control disorder (3) Dementia, vascular, with delusions (4) Dementia, vascular, with depression (5) Dementia in Alzheimer's disease with delusions (6) Dementia in Alzheimer's disease with depression (7) Dementia without behavioral disturbance (8) Lactic acidosis (9) Anemia (10) Generalized weakness (11) Dementia (12) Hyperglycemia (13) Renal insufficiency (14) Hypotension (15) Suicidal ideation (16) Elevated lactic acid level VÍCTOR DECKER MD Jun 10, 2018 22:47
[2018-06-11] MEDS ORDERED: MAG355OR17 PO (01:52)
[2018-06-11 05:29] VITALS: BP 116/68
[2018-06-11] MEDS: LEVOTHYROXINE 125 MCG TABLET PO SCH (05:31)
[2018-06-11] MEDS: CARVEDILOL 3.125 MG TABLET PO SCH (08:03)
[2018-06-11] MEDS: ASPIRIN 81 MG TAB.CHEW PO SCH (08:03)
[2018-06-11] MEDS: levETIRAcetam 500 MG TABLET PO SCH (08:04)
[2018-06-11] MEDS: MAGNESIUM OXIDE 400 MG TABLET PO SCH (08:04)
[2018-06-11] MEDS: POLYETHYLENE GLYCOL 3350 17 GM PACKET. PO SCH (08:04)
[2018-06-11] MEDS: DONEPEZIL HCL 5 MG TABLET. PO SCH (08:04)
[2018-06-11] MEDS: LACTOBACILLUS RHAMNOSUS GG 1 CAPSULE. PO SCH (08:04)
[2018-06-11] MEDS: CITALOPRAM 10 MG TABLET. PO SCH (08:04)
[2018-06-11] MEDS: busPIRone 10 MG TABLET. PO SCH (08:04)
[2018-06-11] MEDS: DOCUSATE SODIUM 100 MG CAPSULE PO SCH (08:04)
[2018-06-11] MEDS: CALCIUM CARB/VIT D3 500/200 TABLET PO SCH (08:05)
[2018-06-11] MEDS: QUEtiapine 25 MG TABLET. PO SCH (08:05)
[2018-06-11] MEDS: GABAPENTIN 100 MG CAPSULE. PO SCH (08:05)
[2018-06-11] MEDS: MEMANTINE 10 MG TABLET. PO SCH (08:05)
[2018-06-11] MEDS: CHOLECALCIFEROL (VITAMIN D3) 1,000 UNIT TABLET PO SCH (08:06)
[2018-06-11] MEDS: INSULIN LISPRO 300 UNITS/3 ML INSULN.PEN. SQ SCH ×2 (08:08→12:13)
[2018-06-11 09:49] LABS: BASO % 1 % (0-3); EOS # 0.1 x10^3/uL (0.0-0.7); EOS % 2 % (0-3); HEMATOCRIT 33.2 % (36.0-47.0); HEMOGLOBIN 11.3 g/dL (12.0-15.5); LYMPH # 1.3 x10^3/uL (1.0-4.8); LYMPH % 22 % (24-48); MEAN CORPUSCULAR HEMOGLOBIN 33 pg (25-35); MEAN CORPUSCULAR HGB CONC 34 g/dL (31-37); MEAN CORPUSCULAR VOLUME 96 fL (79-100); MONO # 0.4 x10^3/uL (0.0-1.1); MONO % 6 % (0-9); NEUT # 4.2 x10^3uL (1.8-7.7); NEUT % 70 % (31-73); PLATELET COUNT 186 x10^3/uL (140-400); RED BLOOD COUNT 3.47 x10^6/uL (3.50-5.40); RED CELL DISTRIBUTION WIDTH 12.7 % (11.5-14.5)
[2018-06-11 10:05] LABS: ALBUMIN 3.3 g/dL (3.4-5.0); ALBUMIN/GLOBULIN RATIO 0.9 (1.0-1.7); CALCIUM 9.5 mg/dL (8.5-10.1); CREATININE 1.3 mg/dL (0.6-1.0); GFR 38.9; POTASSIUM 4.3 mmol/L (3.5-5.1); TOTAL BILIRUBIN 0.2 mg/dL (0.2-1.0); TOTAL PROTEIN 6.9 g/dL (6.4-8.2)
--- NOTE | 2018-06-11 20:24 | PN ---
DATE: 06/09/2018 PSYCHIATRIC PROGRESS NOTE This late entry 06/09/2018 covers elements not covered in my initial note of 06/09/2018. SUBJECTIVE: I met with the patient in the evening. Overall, the patient remains confused, somewhat withdrawn, but not aggressive, less delusional. REVIEW OF SYSTEMS: No CV, , pulmonary, eye, ENT system symptoms on review. Reliability poor. Gait unsteady in wheelchair. MENTAL STATUS EXAM: Oriented to herself. Insight, judgment, recent and remote memory, attention, concentration, fund of knowledge poor, consistent with her diagnosis mentioned in my initial note. PLAN: No change from initial note. MAN Calvin DECKER MD DR: ANDRAE/leonela JOB#: [id number] / [id number]
--- NOTE | 2018-06-11 20:27 | PN ---
DATE: 06/10/2018 PSYCHIATRIC PROGRESS NOTE This late entry 06/10/2018 covers elements not covered in my initial note. SUBJECTIVE: I met with the patient and discussed the patient with the nursing staff, reviewed the chart. Overall, the patient remains confused, but not aggressive or disruptive, somewhat paranoid. REVIEW OF SYSTEMS: Ambulation impaired, in wheelchair. No CV, , pulmonary, eye system symptoms on review. Reliability poor. MENTAL STATUS EXAM: Oriented to herself. Insight, judgment, recent and remote memory, attention, concentration, fund of knowledge poor, consistent with her diagnosis mentioned in my initial note. PLAN: No change from initial note. Possible discharge to [facility] 06/11/2018. VÍCTOR DECKER MD DR: ANDRAE/nts JOB#: [id number] / [id number]
--- NOTE | 2018-06-11 22:48 | PDOC ---
Exam Note: Miguelito Note: Please also refer to the separate dictated note~for this date of service dictated separately.~Patient seen individually. Discussed the patient with Nursing staff reviewed the chart.~Reviewed interim history and current functioning. Reviewed vital signs,~Labs/ Radiology~and current medications noted below. Continue current treatment with the changes noted in the dictated addendum note Assessment: Vital Signs: Vital Signs Date Time Temp Pulse Resp B/P (MAP) Pulse Ox O2 Delivery O2 Flow Rate FiO2 06/11/18 05:29 98.4 58 16 116/68 (84) 97 06/09/18 16:40 Room Air I&O Intake and Output 06/11/18 06:59 Intake Total 1080 ml Balance 1080 ml Intake Oral 1080 ml # Voids 1 Labs: Laboratory Tests Test 06/11/18 07:22 06/11/18 09:28 06/11/18 11:10 Glucose (Fingerstick) 234 mg/dL (70-99) H 235 mg/dL (70-99) H White Blood Count 6.0 x10^3/uL (4.0-11.0) Red Blood Count 3.47 x10^6/uL (3.50-5.40) L Hemoglobin 11.3 g/dL (12.0-15.5) L Hematocrit 33.2 % (36.0-47.0) L Mean Corpuscular Volume 96 fL (79-100) Mean Corpuscular Hemoglobin 33 pg (25-35) Mean Corpuscular Hemoglobin Concent 34 g/dL (31-37) Red Cell Distribution Width 12.7 % (11.5-14.5) Platelet Count 186 x10^3/uL (140-400) Neutrophils (%) (Auto) 70 % (31-73) Lymphocytes (%) (Auto) 22 % (24-48) L Monocytes (%) (Auto) 6 % (0-9) Eosinophils (%) (Auto) 2 % (0-3) Basophils (%) (Auto) 1 % (0-3) Neutrophils # (Auto) 4.2 x10^3uL (1.8-7.7) Lymphocytes # (Auto) 1.3 x10^3/uL (1.0-4.8) Monocytes # (Auto) 0.4 x10^3/uL (0.0-1.1) Eosinophils # (Auto) 0.1 x10^3/uL (0.0-0.7) Basophils # (Auto) 0.0 x10^3/uL (0.0-0.2) Sodium Level 142 mmol/L (136-145) Potassium Level 4.3 mmol/L (3.5-5.1) Chloride Level 106 mmol/L (98-107) Carbon Dioxide Level 32 mmol/L (21-32) Anion Gap 4 (6-14) L Blood Urea Nitrogen 32 mg/dL (7-20) H Creatinine 1.3 mg/dL (0.6-1.0) H Estimated GFR (Cockcroft-Gault) 38.9 BUN/Creatinine Ratio 25 (6-20) H Glucose Level 308 mg/dL (70-99) H Calcium Level 9.5 mg/dL (8.5-10.1) Total Bilirubin 0.2 mg/dL (0.2-1.0) Aspartate Amino Transferase (AST) 13 U/L (15-37) L Alanine Aminotransferase (ALT) 18 U/L (14-59) Alkaline Phosphatase 81 U/L (46-116) Total Protein 6.9 g/dL (6.4-8.2) Albumin 3.3 g/dL (3.4-5.0) L Albumin/Globulin Ratio 0.9 (1.0-1.7) L Current Medications: Meds: Current Medications Carvedilol (Coreg) 6.25 mg BIDWMEALS PO Last administered on 06/10/18at 07:54; Start 05/25/18 at 17:00; Stop 06/10/18 at 16:41; Status DC Multi-Ingredient Ointment (Analgesic [place]) 1 [place] PRN QID PRN TP MUSCLE PAIN; Start 05/25/18 at 11:45; Stop 06/11/18 at 15:19; Status DC Aspirin (Children'S Aspirin) 81 mg DAILYWBKFT PO Last administered on 06/11/18at 08:03; Start 05/26/18 at 08:00; Stop 06/11/18 at 15:19; Status DC Vitamin D (Vitamin D3) 2,000 unit DAILY PO Last administered on 06/11/18at 08:06 ; Start 05/26/18 at 09:00; Stop 06/11/18 at 15:19; Status DC Docusate Sodium (Colace) 100 mg DAILY PO Last administered on 06/11/18 08:04; Start 05/26/18 at 09:00; Stop 06/11/18 at 15:19; Status DC Levetiracetam (Keppra) 500 mg BID PO Last administered on 06/11/18 08:04; Start 05/25/18 at 21:00; Stop 06/11/18 at 15:19; Status DC Magnesium Hydroxide (Milk Of Magnesia) 2,400 mg PRN QHS PRN PO CONSTIPATION Last administered on 06/08/18 20:23; Start 05/25/18 at 12:45; Stop 06/11/18 at 15 :19; Status DC Magnesium Oxide (Magnesium Oxide) 400 mg DAILY PO Last administered on 08:04; Start 05/26/18 at 09:00; Stop 06/11/18 at 15:19; Status DC Multivit/ Folic Acid/Iron (Multivitamin ) 1 tab DAILYBFRSUP PO Last administered on 06/10/18 17:18; Start 05/25/18 at 17:00; Stop 06/11/18 at 15:19; Status DC Gabapentin (Neurontin) 100 mg BID PO Last administered on 06/11/18 08:05; Start 05/25/18 at 21:00; Stop 06/11/18 at 15:19; Status DC Insulin Glargine (Lantus) 8 units QHS SQ Last administered on 06/10/18 19:35; Start 05/25/18 at 21:00; Stop 06/11/18 at 15:19; Status DC Amlodipine Besylate (Norvasc) 10 mg QHS PO Last administered on 06/10/18 19:33 ; Start 05/25/18 at 21:00; Stop 06/11/18 at 15:19; Status DC Citalopram Hydrobromide (CeleXA) 10 mg DAILY PO Last administered on 06/11/18 08:04; Start 05/26/18 at 09:00; Stop 06/11/18 at 15:19; Status DC Glucagon (Glucagen Kit) 1 mg PRN DAILY PRN IM HYPOGLYCEMIA; Start 05/25/18 at 12:45; Stop 06/11/18 at 15:19; Status DC Insulin Human Lispro (HumaLOG) IF FSBS = , Then Gi... TIDAFTMEAL SQ Last administered on 06/11/18 12:13; Start 05/25/18 at 13:00; Stop 06/11/18 at 15:19; Status DC Levothyroxine Sodium (Synthroid) 125 mcg DAILY06 PO Last administered on 05:31; Start 05/26/18 at 06:00; Stop 06/11/18 at 15:19; Status DC Melatonin 6 mg QHS PO Last administered on 06/10/18 19:31; Start 05/25/18 at 21 :00; Stop 06/11/18 at 15:19; Status DC Memantine (Namenda) 10 mg BID PO Last administered on 06/11/18 08:05; Start at 09:00; Stop 06/11/18 at 15:19; Status DC Polyethylene Glycol (miraLAX) 17 gm DAILY PO Last administered on 06/11/18 08: 04; Start 05/26/18 at 09:00; Stop 06/11/18 at 15:19; Status DC Calcium/Vitamin D (Oscal D 500mg/ 200uts) 1 tab DAILY PO Last administered on 08:05; Start 05/26/18 at 09:00; Stop 06/11/18 at 15:19; Status DC Olanzapine (ZyPREXA ZYDIS) 2.5 mg Q2HR PRN PO PSYCHOSIS/AGITATION Last administered on 06/09/18 00:01; Start 05/25/18 at 13:00; Stop 06/11/18 at 15:19; Status DC Donepezil HCl (Aricept) 5 mg BID PO Last administered on 06/11/18 08:04; Start 05/25/18 at 21:00; Stop 06/11/18 at 15:19; Status DC Acetaminophen (Tylenol) 650 mg PRN Q6HRS PRN PO PAIN / TEMP Last administered on 06/08/18 20:22; Start 05/26/18 at 02:30; Stop 06/11/18 at 15:19; Status DC Al Hydroxide/Mg Hydroxide (Mylanta Plus Xs) 15 ml PRN AFTMEALHC PRN PO DYSPEPSIA; Start 05/26/18 at 02:30; Stop 06/11/18 at 15:19; Status DC Magnesium Hydroxide (Milk Of Magnesia) 2,400 mg PRN QHS PRN PO CONSTIPATION; Start 05/26/18 at 02:30; Stop 05/31/18 at 16:09; Status DC Buspirone HCl (Buspar) 5 mg BID PO Last administered on 06/06/18at 20:08; Start 05/27/18 at 09:00; Stop 06/07/18 at 04:47; Status DC Mirtazapine (Remeron) 7.5 mg QHS PO Last administered on 05/28/18at 19:34; Start 05/28/18 at 21:00; Stop 05/29/18 at 17:06; Status DC Mirtazapine (Remeron) 15 mg QHS PO Last administered on 06/10/18at 19:33; Start 05/29/18 at 21:00; Stop 06/11/18 at 15:19; Status DC Quetiapine Fumarate (SEROquel) 12.5 mg 0900,1700 PO Last administered on at 17:19; Start 05/31/18 at 09:00; Stop 05/31/18 at 18:11; Status DC Quetiapine Fumarate (SEROquel) 12.5 mg 0900,1900 PO Last administered on 08:05; Start 05/31/18 at 19:00; Stop 06/11/18 at 15:19; Status DC Quetiapine Fumarate (SEROquel) 12.5 mg DAILY@1700 PO Last administered on at 17:18; Start 06/01/18 at 17:00; Stop 06/11/18 at 15:19; Status DC Cefdinir (Omnicef) 300 mg BID PO Last administered on 06/10/18 07:57; Start at 21:00; Stop 06/10/18 at 12:00; Status DC Lactobacillus Rhamnosus (Culturelle) 1 cap BID PO Last administered on 08:04; Start 06/03/18 at 09:00; Stop 4/8/19 at 15:19; Status DC Buspirone HCl (Buspar) 5 mg BID@0900,1700 PO Last administered on 06/07/18at 07: 32; Start 06/07/18 at 09:00; Stop 06/07/18 at 09:44; Status DC Buspirone HCl (Buspar) 10 mg BID@0900,1700 PO Last administered on 06/11/18at 08: 04; Start 06/07/18 at 17:00; Stop 06/11/18 at 15:19; Status DC Carvedilol (Coreg) 3.125 mg BIDWMEALS PO Last administered on 06/10/18at 17:18; Start 06/10/18 at 17:00; Stop 06/11/18 at 15:19; Status DC Active Scripts Active Reported Advanced Antacid Liquid (Mag Hydrox/Al Hydrox/Simeth) 355 Ml Oral.susp 15 Ml PO PRN AFTMEALHC PRN Buspirone Hcl 10 Mg Tablet 10 Mg PO BID@0900,1700 Seroquel (Quetiapine Fumarate) 25 Mg Tablet 12.5 Mg PO DAILY@1700 Quetiapine Fumarate 25 Mg Tablet 12.5 Mg PO BID@0900,1900 Zyprexa Zydis (Olanzapine) 5 Mg Tab.rapdis 2.5 Mg PO PRN Q2HR PRN MDD 7.5 Mirtazapine 15 Mg Tablet 15 Mg PO QHS Culturelle (Lactobacillus Rhamnosus Gg) 1 Each Capsule 1 Each PO BID Stop date 06/20/18 Tylenol (Acetaminophen) 325 Mg Tablet 650 Mg PO PRN Q6HRS PRN Novolog Flexpen (Insulin Aspart) 100 Unit/1 Ml Insuln.pen 4-10 Unit SQ TIDAFTMEAL If FSBS= 200-250 4 units 251-300 6 units 301-350 8 units 351-400 10 units >401 contact Namzaric 28 mg-10 mg Capsule (Memantine HCl/Donepezil HCl) 1 Each Cap.spr.24 1 Each PO QHS Miralax (Polyethylene Glycol 3350) 17 Gm Powd.pack 17 Gm PO DAILY Melatonin 3 Mg Tablet 5 Mg PO QHS Dissolve in mouth. Max 7.5 mg/24 hours Lantus Solostar (Insulin Glargine,Hum.rec.anlog) 100 Unit/1 Ml Insuln.pen 8 Unit SQ QHS Glucagon Emergency Kit (Glucagon,Human Recombinant) 1 Mg Kit 1 Mg IM PRN Neurontin (Gabapentin) 100 Mg Capsule 100 Mg PO BID Calcium + Vitamin D Tablet (Calcium Carbonate/Vitamin D3) 1 Each Tablet 1 Tab PO DAILY Surfak (Docusate Calcium) 240 Mg Capsule 240 Mg PO DAILY Formula ( Vit W-Ca,Fe,FA(<1 mg)) 1 Each Tablet 1 Each PO DAILYBFRSUP Analgesic [place] (Methyl Salicylate/Menthol) 29 Gm Oint...g. 1 [place] TP PRN QID PRN Magnesium Oxide 400 Mg Tablet 1 Tab PO DAILY Milk Of Magnesia (Magnesium Hydroxide) 2,400 Mg/10 Ml Oral.susp 2,400 Mg PO PRN QHS PRN Escitalopram Oxalate 10 Mg Tablet 5 Mg PO DAILY Levothyroxine Sodium 125 Mcg Tablet 125 Mcg PO DAILY06 Levetiracetam 500 Mg Tablet 500 Mg PO BID Vitamin D (Cholecalciferol (Vitamin D3)) 2,000 Unit Capsule 2,000 Unit PO DAILY Carvedilol (Carvedilol) 6.25 Mg Tablet 0.5 Tab PO BIDWMEALS Aspirin 81 Mg Tab.chew 81 Mg PO DAILY Amlodipine Besylate 10 Mg Tablet 10 Mg PO QHS I have reviewed the current psychotropics carefully including drug interactions. Risk benefit ratio favors no change other than as noted in my dictated progress note. Diagnosis: Problems: (1) Anxiety disorder (2) Impulse control disorder (3) Dementia, vascular, with delusions (4) Dementia, vascular, with depression (5) Dementia in Alzheimer's disease with delusions (6) Dementia in Alzheimer's disease with depression (7) Dementia without behavioral disturbance (8) Lactic acidosis (9) Anemia (10) Generalized weakness (11) Dementia (12) Hyperglycemia (13) Renal insufficiency (14) Hypotension (15) Suicidal ideation (16) Elevated lactic acid level VÍCTOR DECKER MD Jun 11, 2018 22:48
--- NOTE | 2018-06-12 16:12 | DS ---
DATE OF DISCHARGE: 06/11/2018 DISCHARGE SUMMARY/PSYCHIATRIC PROGRESS NOTE REASON FOR ADMISSION: Please refer to the admission history for details. Briefly, the patient is an 87-year-old female referred to us from [facility] by Dr. Zhang, her outpatient psychiatrist and Dr. Milan Medina, her primary care physician on account of worsening confusion, aggression, being combative with staff, delusional, thinks the emergency medical personnel, was taking people from the facility to "kill them." She is attempting to self transfer, there is a significant fall risk, had failed outpatient psychiatric interventions. SIGNIFICANT FINDINGS AND CLINICAL COURSE: Following admission, the patient was seen daily individually from a psychiatric standpoint by myself, followed medically per Dr. Bro. Initially, the patient was quite delusional, suspicious, anxious, restless, certainly very confused. Adjustments were made in her psychotropics and she seemed to respond to a combination of Aricept 5 mg b.i.d., Celexa 10 mg a day, Namenda 10 mg b.i.d., gabapentin 100 mg b.i.d., Zyprexa p.r.n., BuSpar 10 mg twice a day, Remeron 15 mg at bedtime, Seroquel 12.5 mg t.i.d., melatonin 6 mg at bedtime. She did have a UTI on admission and was treated on cefdinir. This appeared to have been worsening her initial presentation symptoms. REVIEW OF SYSTEMS: Prior to discharge on 06/11/2018, ambulation impaired, in wheelchair. No CV, , pulmonary, eye system symptoms on review. MENTAL STATUS EXAM: Oriented to herself. Insight, judgment, recent and remote memory, attention, concentration, fund of knowledge poor, consistent with her diagnosis mentioned in my initial note. FINAL DIAGNOSES: Major neurocognitive disorder, Alzheimer, vascular with delusion, depression, behavioral disturbance; anxiety disorder, unspecified; impulse control disorder, unspecified; status post urinary tract infection. Rest unchanged from admission. DISCHARGE MEDICATIONS: Please refer to the MRAD. DISCHARGE INSTRUCTIONS: Outpatient psychiatric and medical followup at the [facility]. VÍCTOR DECKER MD DR: ANDRAE/leonela JOB#: [id number] / [id number]
== END 2018-06-11 15:00 | DRG 57 ==
LOC: GEROPSY 11:20
PROVIDERS: ADMIT Psychiatry & Neurology Psychiatry; ATTEND Psychiatry & Neurology Psychiatry
DX: G30.9 Alzheimer's disease, unspecified (principal); R45.851 Suicidal ideations; N39.0 Urinary tract infection, site not specified; E87.2 Acidosis; D64.9 Anemia, unspecified; F01.50 Vascular dementia, unspecified severity, without behavioral disturbance, psychotic disturbance, mood disturbance, and anxiety; F63.9 Impulse disorder, unspecified; F41.9 Anxiety disorder, unspecified; I12.9 Hypertensive chronic kidney disease with stage 1 through stage 4 chronic kidney disease, or unspecified chronic kidney disease; N18.9 Chronic kidney disease, unspecified; E03.9 Hypothyroidism, unspecified; G40.909 Epilepsy, unspecified, not intractable, without status epilepticus; Z66 Do not resuscitate; F32.9 Major depressive disorder, single episode, unspecified; E55.9 Vitamin D deficiency, unspecified; E11.22 Type 2 diabetes mellitus with diabetic chronic kidney disease; E11.65 Type 2 diabetes mellitus with hyperglycemia; Z88.6 Allergy status to analgesic agent; Z88.5 Allergy status to narcotic agent; Z79.899 Other long term (current) drug therapy; Z91.81 History of falling
CPT/HCPCS: 36415; 80053; 80061; 81001; 82274; 82306; 82947; 83036; 83540; 83550; 83735; 84436; 84443; 84480; 85025; 87086; 87186; 93005; J1815